=== PATIENT | male | born 1955 | race Caucasian/White ===

== ENCOUNTER 2022-12-25 17:44 | Inpatient (IN) ==
[2022-12-25] MEDS ORDERED: SODIUM CHLORIDE 0.9% 1,000 ML IV ONE ×4 (17:50→20:16)
[2022-12-25] MEDS ORDERED: THIAMINE HCL 200 MG in SODIUM CHLORIDE 0.9% 50 ML IV STA (17:50)
[2022-12-25] MEDS ORDERED: HYDROCORTISONE SOD SUCCINATE 100 MG/2 ML VIAL IV STA (17:56)
[2022-12-25] MEDS ORDERED: ONDANSETRON INJ 2 MG/ML 2 ML VIAL IV STA (17:57)
--- NOTE | 2022-12-25 18:03 | XRay Report ---
SINGLE VIEW CHEST CLINICAL HISTORY: Atypical chest pain. FINDINGS: An AP, portable, upright chest radiograph is compared to chest x-ray and chest CT dated 10/14. The examination is degraded by portable technique and patient rotation. The heart is mildly enlarged. The pulmonary vasculature is noncongested. The lungs and pleural spaces are clear. No pneum othorax is seen. The skeletal structures are osteopenic. The bony thorax is grossly intact. IMPRESSION: No active disease in the chest. ACT 112: Negative or not required by law. Electronically signed by: Jose Arreguin M.D. 12/25/2022 6:02 PM
[2022-12-25 18:12] LABS: iSTAT Creatinine 1.2 mg/dl (0.6-1.3); iSTAT Ionized Calcium 1.03 mmol/l (1.12-1.32); iSTAT Potassium 2.6 mmol/L (3.3-5.0)
[2022-12-25] MEDS ORDERED: OPTIRAY 320 500ml IV ONE (18:16)
[2022-12-25 18:25] LABS: Hematocrit (blood only) 47.2 % (42.0-52.0); Hemoglobin 16.6 g/dl (14.0-18.0); Mean Corpuscular Hemoglobin 32.1 pg (25.0-34.0); Mean Corpuscular Hgb Conc 35.2 g/dL (32.0-36.0); Mean Corpuscular Volume 91.3 fL (80.0-100.0); Mean Platelet Volume 9.5 fL (9.4-12.4); Platelet Count 275 K/uL (130-400); RDW Coefficient of Variation 12.4 % (11.5-14.5); RDW Standard Deviation 41.7 fL (36.4-46.3); Red Blood Count 5.17 M/uL (4.70-6.10); White Blood Count 5.11 K/ul (4.8-10.8)
[2022-12-25 18:29] LABS: Alanine Aminotransferase 7 U/L (7-52); Albumin Globulin Ratio 1.8 (0.9-2); Albumin Level 3.9 gm/dl (3.4-5.0); Alkaline Phosphatase 71 U/L (34-104); Anion Gap 12 (3-11); Aspartate Aminotransferase 17 U/L (13-39); BUN Creatinine Ratio 8.5 (10-20); Bilirubin,Total 0.5 mg/dl (0.2-1.0); Blood Urea Nitrogen 10 mg/dl (6-23); C Reactive Protein < 0.50 mg/dl (0-0.5); Calcium 8.3 mg/dl (8.6-10.3); Carbon Dioxide 20 mmol/L (21-32); Chloride 105 mmol/L (98-107); Est GFR (African American) 73.8 ml/min; Est GFR (Non-African American) 63.7 ml/min; Globulin 2.2 gm/dl (2.5-4.0); Glucose 190 mg/dl (70-99(Fasting)); Lipase 29 U/L (11-82); Potassium 2.7 mmol/L (3.5-5.1); Sodium 137 mmol/L (136-145); Total Protein 6.1 gm/dl (6.0-8.3)
[2022-12-25 18:35] LABS: Troponin I High Sensitivity 24.8 pg/ml (0-20)
--- NOTE | 2022-12-25 18:35 | CT Scan Report ---
CT SCAN OF THE BRAIN WITHOUT IV CONTRAST CLINICAL HISTORY: Syncope. Fall. COMPARISON STUDY: CT of the brain dated 11/02/2021. TECHNIQUE: Unenhanced axial CT scan of the brain is performed from the vertex to the skull base. A d ose lowering technique was utilized adhering to the principles of ALARA. CT DOSE: 5305.66 mGy.cm FINDINGS: Brain parenchyma: The brain parenchyma is normal in appearance. There is no hemorrhage, mass effect, or evidence of acute territorial ischemia by CT criteria. Mendoza-white matter differentiation is preser mauricio. No extra-axial fluid collection is seen. Ventricles, sulci, cisterns: Normal in configuration. Intracranial vasculature: There is atherosclerotic calcification of the cavernous carotid arteries. Calvarium: Unremarkable. Sinuses and mastoids: The visualized paranasal sinuses are clear. The mastoid air cells are well pneu matized. Orbits: The bony orbits are grossly intact. IMPRESSION: No acute intracranial abnormality. ACT 112: Negative or not required by law. Electronically signed by: Jose Arreguin M.D. 12/25/2022 6:33 PM
--- NOTE | 2022-12-25 18:36 | Emergency Department Note ---
Impression & Plan Sepsis, Chest pain, Atrial fibrillation with rapid ventricular response, Acute hypotension, Acute non-ST elevation myocardial infarction (NSTEMI) ED Provider Note NAME: SUJATHA HERNANDEZ AGE: 67 SEX: M : 1955 ARRIVES VIA: Ambulance INFORMANT: Patient, ED PROVIDER(S): Ned Fuentes DO CHIEF COMPLAINT: Chest pain HPI: The patient is a 67-year-old male who presented to the emergency department by ambulance for an evaluation of chest pain and generalized illness. The patient has been having problems over the course of the last few hours. He called 911. He had multiple syncopal episodes. He was complaining initially of chest pain and discomfort in his chest and abdomen. It is unclear if he struck his head. The patient denies having any lower extremity pain or swelling. The patient had a large bowel movement after he was brought from the ambulance. I did receive a prehospital notification about the patient. The patient had multiple EKGs that were abnormal. There was concern that this could be related to a cardiac issue. The patient does admit to alcohol intake today. He denies having any back pain. He did complain of some neck discomfort. ROS: See above HPI for pertinent positives & negatives. A total of 10 systems reviewed and were otherwise negative. PAST MEDICAL HISTORY: See Below PAST SURGICAL HISTORY: See Below FAMILY HISTORY: See Below SOCIAL HISTORY: See Below HOME MEDICATIONS: See Below ALLERGIES: See Below VITALS: See Below PHYSICAL EXAMINATION: GENERAL: The patient is awake to verbal commands. He appears somewhat anxious. He appears in extremis. EYES: The conjunctivae are clear. The pupils are round and reactive. EARS, NOSE, MOUTH AND THROAT: The nose is without any evidence of any deformity. Mucous membranes are dry. NECK: The neck is nontender and supple. RESPIRATORY: Normal respiratory effort is noted there is no evidence of wheezing rhonchi or rales CARDIOVASCULAR: Irregular heart sounds were noted to auscultation. There is no definite murmur. GASTROINTESTINAL: The abdomen was soft and nondistended. There is diffuse tenderness to palpation but no guarding or rigidity. MUSCULOSKELETAL/EXTREMITIES: There is no evidence of gross deformity full range of motion is noted in the hips and shoulders. SKIN: The skin is cool and diaphoretic. There was no significant pedal edema. Nailbeds were cyanotic. NEUROLOGIC: Patient is awake and oriented x3. Strength was diminished but symmetric. MEDICAL DECISION MAKING: The patient is a 67-year-old male who presented to the emergency department for an evaluation of chest pain. The patient presentation was very worrisome as he was having acute onset of chest pain but also multiple episodes of syncope. The patient was initially in sinus rhythm. His prehospital EKGs were reviewed. He also had episodes of atrial fibrillation which would be a new diagnosis for the patient. The patient was treated with multiple IV fluid boluses. His condition slowly improved from a mental status standpoint but he continued to have hypotension and his atrial fibrillation continue to increase with this rate. The patient did have an elevation in his troponin. I discussed the patient's laboratory and radiographic studies with him and his significant other. He was further treated with IV antibiotics. Radiographic studies were obtained and there is no definite signs of aortic pathology or infectious cause for the patient's presentation that would complete Rosi's presentation. The patient required a central line placement for IV pressors. I discussed the patient's condition with the [facility] hospitalist group as well as the ICU. They have agreed to evaluate patient in the emergency department for further management and disposition. Triage Nursing notes reviewed. Prior medical records reviewed Vital Signs: reviewed and remarkable for Hypotension and tachycardia Differential diagnosis: Cardiac ischemia, aortic dissection, pulmonary embolism, pneumothorax, pneumonia, pericarditis, myocarditis, esophageal rupture, GERD, cholecystitis, pancreatitis, musculoskeletal, as well as other pathologies. ER treatment provided: See below Diagnostics interpreted by me: ECG: EKG was obtained in the emergency department. My interpretation is atrial fibrillation at 134 bpm. Poor R wave progression with diffuse ST depressions were noted. This was compared with the tracing from November 02, 2021. Sinus rhythm has been replaced with atrial fibrillation. Prehospital notification EKG was obtained. My interpretation on the initial EKG is sinus tachycardia at 103 bpm. Poor R wave progression with lateral and inferior ST depressions are noted. This compares similar to the EKG obtained in the emergency department however atrial fibrillation has replaced sinus rhythm. Cardiac Monitoring: An order was placed for continuous cardiac monitoring. The monitor shows a rate of 160 bpm with atrial fibrillation RVR Laboratory studies: As stated above and show below. Imaging studies: See below. Radiographic imaging was reviewed by myself Consultation(s): I discussed this case with Dr Maher who was on for the [facility] hospitalist group. I discussed this case with Royer who was extrusion bender for the ICU ED COURSE: Procedures: Femoral Central Venous Catheter Indication: hypotension Catheter Type: triple lumen Location: right femoral vein Verbal consent was obtained after the risks and benefits were explained, including but not limited to intra-abdominal injury, vessel injury, bleeding, scarring, infection, pain, and bone/joint/nerve damage. At this time, the risks of the procedure are less than the risks of NOT performing the procedure. A time out was taken and the correct patient and site identified. The patient was placed in the supine position and the skin was prepped in the standard fashion with chlorhexidine and full sterile drapes applied. The proper landmarks were identified with ultrasound, anesthetized with 1% lidocaine without epinephrine, and the needle was inserted through the skin in the standard fashion. The needle was carefully advanced into blood vessel lumen with ultrasound guidance. The guidewire was placed uneventfully. The vessel is dilated and the catheter was placed. It was sutured into position. There was good blood return from all ports. The patient tolerated the procedure well and there were no complications. Critical Care: I have personally spent greater than 55 minutes of critical care time in the direct management of this patient. This includes bedside care, interpretation of diagnostic studies, and testing, discussion with consultants, patient, and family members, and other required patient management activities. This 55 minutes is in excess of all separately billable procedures. Past Med/Surg History Medical History Alcohol intoxication BPH with obstruction/lower urinary tract symptoms Chronic shoulder pain GERD (gastroesophageal reflux disease) HLD (hyperlipidemia) No significant past medical history Surgical History H/O hernia repair Family History Brother Heart disease Mother Breast cancer Leukemia Social History Smoking Status: Former smoker Tobacco Type: Smokeless Tobacco (Dip or Chew) Second Hand Exposure: No; Do You Dip or Chew Tobacco: No; Tobacco Cessation Education Requested by Patient: No Hx Alcohol Use: Yes Alcohol type: beer Hx Substance Use: No Preferred Language: Spanish Communication Ability: Effective Dairy Management Specialist Required: No Beliefs That Will Affect Care: None marital status: Current Living Situation: Spouse Other Information That Helps Us Care for You: No Feels Safe at Home: Yes Safety Concerns: Feels Safe At This Time Assistive Devices: Glasses Allergies Allergies Allergy/AdvReac Type Severity Reaction Status Date / Time No Known Allergies Allergy Verified 08/22/19 14:45 Home Meds Home Medications Medication Instructions Recorded Confirmed atorvastatin 20 mg tablet (Lipitor) 20 mg PO DAILY 08/22/19 08/22/19 pantoprazole 40 mg tablet,delayed 40 mg PO DAILY 08/22/19 08/22/19 release (Protonix) sucralfate 1 gram tablet (Carafate) 1 gm PO BID 08/22/19 08/22/19 Results & Data (ED) Vital Signs Vital Signs - 24 hr 12/25/22 17:52 12/25/22 18:36 12/25/22 18:36 Temperature Temperature Source Pulse Rate 125 H 142 H Pulse Rate from SpO2 Sensor Respiratory Rate 22 Respiratory Effort / Characteristics Non-Labored Respiratory Depth Normal Blood Pressure 82/54 L Blood Pressure Mean 63 Pulse Oximetry 93 93 Oxygen Delivery Method Room Air Room Air Sepsis Recent Fever Within 48 Hours No Sepsis New/Unexplained Change in Mental Status Yes Sepsis Action Taken by Nursing Physician Notified Pulse Oximetry Post Tiitration 12/25/22 18:36 12/25/22 17:51 12/25/22 17:55 Temperature Temperature Source Pulse Rate 126 H Pulse Rate from SpO2 Sensor 98 H Respiratory Rate 17 Respiratory Effort / Characteristics Respiratory Depth Blood Pressure 54/34 L Blood Pressure Mean 35 Pulse Oximetry 96 Oxygen Delivery Method Room Air Sepsis Recent Fever Within 48 Hours Sepsis New/Unexplained Change in Mental Status Sepsis Action Taken by Nursing Pulse Oximetry Post Tiitration 93 12/25/22 17:55 12/25/22 18:24 12/25/22 18:25 Temperature Temperature Source Pulse Rate 126 H 140 H 126 H Pulse Rate from SpO2 Sensor 108 H 131 H Respiratory Rate 21 23 22 Respiratory Effort / Characteristics Respiratory Depth Blood Pressure Blood Pressure Mean Pulse Oximetry 96 95 Oxygen Delivery Method Sepsis Recent Fever Within 48 Hours Sepsis New/Unexplained Change in Mental Status Sepsis Action Taken by Nursing Pulse Oximetry Post Tiitration 12/25/22 18:27 12/25/22 18:27 12/25/22 18:30 Temperature Temperature Source Pulse Rate 139 H 152 H Pulse Rate from SpO2 Sensor Respiratory Rate 20 27 H Respiratory Effort / Characteristics Respiratory Depth Blood Pressure 90/48 L Blood Pressure Mean 53 Pulse Oximetry Oxygen Delivery Method Sepsis Recent Fever Within 48 Hours Sepsis New/Unexplained Change in Mental Status Sepsis Action Taken by Nursing Pulse Oximetry Post Tiitration 12/25/22 18:35 12/25/22 18:35 12/25/22 18:36 Temperature Temperature Source Pulse Rate 162 H Pulse Rate from SpO2 Sensor Respiratory Rate 24 Respiratory Effort / Characteristics Respiratory Depth Blood Pressure 65/43 L 82/54 L Blood Pressure Mean 51 63 Pulse Oximetry Oxygen Delivery Method Sepsis Recent Fever Within 48 Hours Sepsis New/Unexplained Change in Mental Status Sepsis Action Taken by Nursing Pulse Oximetry Post Tiitration 12/25/22 18:36 12/25/22 18:40 12/25/22 18:42 Temperature Temperature Source Pulse Rate 161 H 137 H Pulse Rate from SpO2 Sensor Respiratory Rate 22 21 Respiratory Effort / Characteristics Respiratory Depth Blood Pressure Blood Pressure Mean 69 Pulse Oximetry Oxygen Delivery Method Sepsis Recent Fever Within 48 Hours Sepsis New/Unexplained Change in Mental Status Sepsis Action Taken by Nursing Pulse Oximetry Post Tiitration 12/25/22 18:42 12/25/22 18:45 12/25/22 18:45 Temperature Temperature Source Pulse Rate 133 H 149 H Pulse Rate from SpO2 Sensor Respiratory Rate 24 24 Respiratory Effort / Characteristics Respiratory Depth Blood Pressure 78/49 L Blood Pressure Mean 61 Pulse Oximetry Oxygen Delivery Method Sepsis Recent Fever Within 48 Hours Sepsis New/Unexplained Change in Mental Status Sepsis Action Taken by Nursing Pulse Oximetry Post Tiitration 12/25/22 18:51 12/25/22 18:54 12/25/22 18:56 Temperature Temperature Source Pulse Rate 137 H 144 H 150 H Pulse Rate from SpO2 Sensor Respiratory Rate 19 19 22 Respiratory Effort / Characteristics Respiratory Depth Blood Pressure 68/42 L 76/57 L 85/37 L Blood Pressure Mean 50 63 53 Pulse Oximetry 96 Oxygen Delivery Method Room Air Sepsis Recent Fever Within 48 Hours Sepsis New/Unexplained Change in Mental Status Sepsis Action Taken by Nursing Pulse Oximetry Post Tiitration 12/25/22 19:00 12/25/22 19:26 12/25/22 19:05 Temperature 36.4 C L Temperature Source Oral Pulse Rate 151 H 147 H Pulse Rate from SpO2 Sensor Respiratory Rate 22 20 Respiratory Effort / Characteristics Respiratory Depth Blood Pressure 64/51 L 73/39 L Blood Pressure Mean 55 50 Pulse Oximetry 93 Oxygen Delivery Method Room Air Sepsis Recent Fever Within 48 Hours Sepsis New/Unexplained Change in Mental Status Sepsis Action Taken by Nursing Pulse Oximetry Post Tiitration 12/25/22 19:10 12/25/22 19:17 12/25/22 19:21 Temperature Temperature Source Pulse Rate 149 H 163 H 166 H Pulse Rate from SpO2 Sensor Respiratory Rate 18 22 19 Respiratory Effort / Characteristics Respiratory Depth Blood Pressure 71/41 L 72/38 L 71/44 L Blood Pressure Mean 51 49 53 Pulse Oximetry 91 94 93 Oxygen Delivery Method Room Air Room Air Room Air Sepsis Recent Fever Within 48 Hours Sepsis New/Unexplained Change in Mental Status Sepsis Action Taken by Nursing Pulse Oximetry Post Tiitration 12/25/22 19:26 12/25/22 19:30 12/25/22 20:37 Temperature Temperature Source Pulse Rate 156 H 160 H 178 H Pulse Rate from SpO2 Sensor 154 H 148 H Respiratory Rate 19 22 Respiratory Effort / Characteristics Respiratory Depth Blood Pressure 71/47 L 61/52 L Blood Pressure Mean 55 55 Pulse Oximetry 100 100 Oxygen Delivery Method Room Air Room Air Sepsis Recent Fever Within 48 Hours Sepsis New/Unexplained Change in Mental Status Sepsis Action Taken by Nursing Pulse Oximetry Post Tiitration 12/25/22 20:41 12/25/22 21:00 12/25/22 21:05 Temperature Temperature Source Pulse Rate 175 H 163 H 117 H Pulse Rate from SpO2 Sensor 163 H 117 H Respiratory Rate 20 18 Respiratory Effort / Characteristics Respiratory Depth Blood Pressure 85/66 L 108/67 Blood Pressure Mean 72 80 Pulse Oximetry 97 98 Oxygen Delivery Method Room Air Room Air Sepsis Recent Fever Within 48 Hours Sepsis New/Unexplained Change in Mental Status Sepsis Action Taken by Nursing Pulse Oximetry Post Tiitration 12/25/22 21:10 12/25/22 21:20 Temperature Temperature Source Pulse Rate 122 H 118 H Pulse Rate from SpO2 Sensor 113 H 114 H Respiratory Rate 17 18 Respiratory Effort / Characteristics Respiratory Depth Blood Pressure 83/67 L 120/73 Blood Pressure Mean 72 88 Pulse Oximetry 97 97 Oxygen Delivery Method Room Air Room Air Sepsis Recent Fever Within 48 Hours Sepsis New/Unexplained Change in Mental Status Sepsis Action Taken by Nursing Pulse Oximetry Post Tiitration Home Medications Current Medication List: was personally reviewed by me Laboratory Data Attestation: I reviewed the patient's lab results. 12/25/22 17:53 12/25/22 17:53 Lab Results 12/25/22 12/25/2223 Range/Units 17:53 17:53 17:53 WBC 5.11 (4.8-10.8) K/ul RBC 5.17 (4.70-6.10) M/uL Hgb 16.6 (14.0-18.0) g/dl POC Hgb (14.0-18.0) g/dl Hct 47.2 (42.0-52.0) % POC Hct (42-52) % MCV 91.3 (80.0-100.0) fL MCH 32.1 (25.0-34.0) pg MCHC 35.2 (32.0-36.0) g/dL RDW Std Deviation 41.7 (36.4-46.3) fL RDW Coeff of Santiago 12.4 (11.5-14.5) % Plt Count 275 (130-400) K/uL MPV 9.5 (9.4-12.4) fL Immature Gran % (Auto) 0.6 % Neut % (Auto) 65.3 % Lymph % (Auto) 32.5 % Kleberg % (Auto) 0.4 % Eos % (Auto) 1.0 % Baso % (Auto) 0.2 % Neut # (Auto) 3.34 (1.40-6.50) K/uL Lymph # (Auto) 1.66 (1.20-3.40) K/uL Kleberg # (Auto) 0.02 L (0.11-0.59) K/uL Eos # (Auto) 0.05 (0.00-0.50) K/uL Baso # (Auto) 0.01 (0.00-0.20) K/uL Immature Gran # (Auto) 0.03 (0.01-0.20) K/uL PT 10.9 (9.0-12.0) Seconds INR 1.0 (0.9-1.1) APTT 21.4 (21.0-31.0) Seconds PTT Ratio 0.8 D-Dimer 66450 H* (0-500) ug/L FEU ABG pH (7.35-7.45) ABG pCO2 (35-46) mmHg ABG pO2 (80-95) mmHg ABG HCO3 (19-24) mmol/L ABG O2 Saturation (90-95) % ABG Base Excess (-9-1.8) mEq/L Fuad Test (Pos) Oxygen Given POC Sodium (135-144) mmol/L Sodium 137 (136-145) mmol/L POC Potassium (3.3-5.0) mmol/L Potassium 2.7 L (3.5-5.1) mmol/L POC Chloride (101-112) mmol/L Chloride 105 (98-107) mmol/L Carbon Dioxide 20 L (21-32) mmol/L POC Total CO2 (24-31) mmol/L Anion Gap 12 H (3-11) POC Anion Gap (16-25) mmol/L POC BUN (7-18) mg/dl BUN 10 (6-23) mg/dl Creatinine 1.17 (0.6-1.4) mg/dl POC Creatinine (0.6-1.3) mg/dl Est Cr Clr Drug Dosing Not Reportable Est GFR ( Amer) 73.8 ml/min Est GFR (Non-Af Amer) 63.7 ml/min BUN/Creatinine Ratio 8.5 L (10-20) Glucose 190 H (70-99(Fasting)) mg/dl POC Glucose (other) (70-99) mg/dl Calcium 8.3 L (8.6-10.3) mg/dl POC Ioniz Calcium [place] (1.12-1.32) mmol/l Magnesium 2.0 (1.7-2.4) mg/dl Total Bilirubin 0.5 (0.2-1.0) mg/dl AST 17 (13-39) U/L ALT 7 (7-52) U/L Alkaline Phosphatase 71 (34-104) U/L Troponin I High Sens 24.8 H (0-20) pg/ml C-Reactive Protein < 0.50 (0-0.5) mg/dl Total Protein 6.1 (6.0-8.3) gm/dl Albumin 3.9 (3.4-5.0) gm/dl Globulin 2.2 L (2.5-4.0) gm/dl Albumin/Globulin Ratio 1.8 (0.9-2) Lipase 29 (11-82) U/L Procalcitonin (0-0.5) ng/ml Random Cortisol mcg/dl Ethyl Alcohol mg/dL (<10.0) mg/dl Blood Type Antibody Screen 12/25/22 12/25/22 12/25/22 Range/Units 17:53 17:53 17:53 WBC (4.8-10.8) K/ul RBC (4.70-6.10) M/uL Hgb (14.0-18.0) g/dl POC Hgb (14.0-18.0) g/dl Hct (42.0-52.0) % POC Hct (42-52) % MCV (80.0-100.0) fL MCH (25.0-34.0) pg MCHC (32.0-36.0) g/dL RDW Std Deviation (36.4-46.3) fL RDW Coeff of Santiago (11.5-14.5) % Plt Count (130-400) K/uL MPV (9.4-12.4) fL Immature Gran % (Auto) % Neut % (Auto) % Lymph % (Auto) % Kleberg % (Auto) % Eos % (Auto) % Baso % (Auto) % Neut # (Auto) (1.40-6.50) K/uL Lymph # (Auto) (1.20-3.40) K/uL Kleberg # (Auto) (0.11-0.59) K/uL Eos # (Auto) (0.00-0.50) K/uL Baso # (Auto) (0.00-0.20) K/uL Immature Gran # (Auto) (0.01-0.20) K/uL PT (9.0-12.0) Seconds INR (0.9-1.1) APTT (21.0-31.0) Seconds PTT Ratio D-Dimer (0-500) ug/L FEU ABG pH (7.35-7.45) ABG pCO2 (35-46) mmHg ABG pO2 (80-95) mmHg ABG HCO3 (19-24) mmol/L ABG O2 Saturation (90-95) % ABG Base Excess (-9-1.8) mEq/L Fuad Test (Pos) Oxygen Given POC Sodium (135-144) mmol/L Sodium (136-145) mmol/L POC Potassium (3.3-5.0) mmol/L Potassium (3.5-5.1) mmol/L POC Chloride (101-112) mmol/L Chloride (98-107) mmol/L Carbon Dioxide (21-32) mmol/L POC Total CO2 (24-31) mmol/L Anion Gap (3-11) POC Anion Gap (16-25) mmol/L POC BUN (7-18) mg/dl BUN (6-23) mg/dl Creatinine (0.6-1.4) mg/dl POC Creatinine (0.6-1.3) mg/dl Est Cr Clr Drug Dosing Est GFR ( Amer) ml/min Est GFR (Non-Af Amer) ml/min BUN/Creatinine Ratio (10-20) Glucose (70-99(Fasting)) mg/dl POC Glucose (other) (70-99) mg/dl Calcium (8.6-10.3) mg/dl POC Ioniz Calcium [place] (1.12-1.32) mmol/l Magnesium (1.7-2.4) mg/dl Total Bilirubin (0.2-1.0) mg/dl AST (13-39) U/L ALT (7-52) U/L Alkaline Phosphatase (34-104) U/L Troponin I High Sens (0-20) pg/ml C-Reactive Protein (0-0.5) mg/dl Total Protein (6.0-8.3) gm/dl Albumin (3.4-5.0) gm/dl Globulin (2.5-4.0) gm/dl Albumin/Globulin Ratio (0.9-2) Lipase (11-82) U/L Procalcitonin (0-0.5) ng/ml Random Cortisol 24.25 mcg/dl Ethyl Alcohol mg/dL 104.9 H (<10.0) mg/dl Blood Type O Positive Antibody Screen NEGATIVE 12/25/22 12/25/22 12/25/22 Range/Units 17:53 17:59 18:51 WBC (4.8-10.8) K/ul RBC (4.70-6.10) M/uL Hgb (14.0-18.0) g/dl POC Hgb 17.0 (14.0-18.0) g/dl Hct (42.0-52.0) % POC Hct 50 (42-52) % MCV (80.0-100.0) fL MCH (25.0-34.0) pg MCHC (32.0-36.0) g/dL RDW Std Deviation (36.4-46.3) fL RDW Coeff of Santiago (11.5-14.5) % Plt Count (130-400) K/uL MPV (9.4-12.4) fL Immature Gran % (Auto) % Neut % (Auto) % Lymph % (Auto) % Kleberg % (Auto) % Eos % (Auto) % Baso % (Auto) % Neut # (Auto) (1.40-6.50) K/uL Lymph # (Auto) (1.20-3.40) K/uL Kleberg # (Auto) (0.11-0.59) K/uL Eos # (Auto) (0.00-0.50) K/uL Baso # (Auto) (0.00-0.20) K/uL Immature Gran # (Auto) (0.01-0.20) K/uL PT (9.0-12.0) Seconds INR (0.9-1.1) APTT (21.0-31.0) Seconds PTT Ratio D-Dimer (0-500) ug/L FEU ABG pH 7.15 L* (7.35-7.45) ABG pCO2 31 L (35-46) mmHg ABG pO2 109 H (80-95) mmHg ABG HCO3 11 L (19-24) mmol/L ABG O2 Saturation 98.3 H (90-95) % ABG Base Excess -16.8 L (-9-1.8) mEq/L Fuad Test Pos (Pos) Oxygen Given ROOM AIR POC Sodium 139 (135-144) mmol/L Sodium (136-145) mmol/L POC Potassium 2.6 L (3.3-5.0) mmol/L Potassium (3.5-5.1) mmol/L POC Chloride 102 (101-112) mmol/L Chloride (98-107) mmol/L Carbon Dioxide (21-32) mmol/L POC Total CO2 20 L (24-31) mmol/L Anion Gap (3-11) POC Anion Gap 21.0 (16-25) mmol/L POC BUN 10 (7-18) mg/dl BUN (6-23) mg/dl Creatinine (0.6-1.4) mg/dl POC Creatinine 1.2 (0.6-1.3) mg/dl Est Cr Clr Drug Dosing Est GFR ( Amer) ml/min Est GFR (Non-Af Amer) ml/min BUN/Creatinine Ratio (10-20) Glucose (70-99(Fasting)) mg/dl POC Glucose (other) 184 H (70-99) mg/dl Calcium (8.6-10.3) mg/dl POC Ioniz Calcium [place] 1.03 L (1.12-1.32) mmol/l Magnesium (1.7-2.4) mg/dl Total Bilirubin (0.2-1.0) mg/dl AST (13-39) U/L ALT (7-52) U/L Alkaline Phosphatase (34-104) U/L Troponin I High Sens (0-20) pg/ml C-Reactive Protein (0-0.5) mg/dl Total Protein (6.0-8.3) gm/dl Albumin (3.4-5.0) gm/dl Globulin (2.5-4.0) gm/dl Albumin/Globulin Ratio (0.9-2) Lipase (11-82) U/L Procalcitonin < 0.05 (0-0.5) ng/ml Random Cortisol mcg/dl Ethyl Alcohol mg/dL (<10.0) mg/dl Blood Type Antibody Screen 12/25/22 Range/Units 20:06 WBC (4.8-10.8) K/ul RBC (4.70-6.10) M/uL Hgb (14.0-18.0) g/dl POC Hgb (14.0-18.0) g/dl Hct (42.0-52.0) % POC Hct (42-52) % MCV (80.0-100.0) fL MCH (25.0-34.0) pg MCHC (32.0-36.0) g/dL RDW Std Deviation (36.4-46.3) fL RDW Coeff of Santiago (11.5-14.5) % Plt Count (130-400) K/uL MPV (9.4-12.4) fL Immature Gran % (Auto) % Neut % (Auto) % Lymph % (Auto) % Kleberg % (Auto) % Eos % (Auto) % Baso % (Auto) % Neut # (Auto) (1.40-6.50) K/uL Lymph # (Auto) (1.20-3.40) K/uL Kleberg # (Auto) (0.11-0.59) K/uL Eos # (Auto) (0.00-0.50) K/uL Baso # (Auto) (0.00-0.20) K/uL Immature Gran # (Auto) (0.01-0.20) K/uL PT (9.0-12.0) Seconds INR (0.9-1.1) APTT (21.0-31.0) Seconds PTT Ratio D-Dimer (0-500) ug/L FEU ABG pH (7.35-7.45) ABG pCO2 (35-46) mmHg ABG pO2 (80-95) mmHg ABG HCO3 (19-24) mmol/L ABG O2 Saturation (90-95) % ABG Base Excess (-9-1.8) mEq/L Fuad Test (Pos) Oxygen Given POC Sodium (135-144) mmol/L Sodium (136-145) mmol/L POC Potassium (3.3-5.0) mmol/L Potassium (3.5-5.1) mmol/L POC Chloride (101-112) mmol/L Chloride (98-107) mmol/L Carbon Dioxide (21-32) mmol/L POC Total CO2 (24-31) mmol/L Anion Gap (3-11) POC Anion Gap (16-25) mmol/L POC BUN (7-18) mg/dl BUN (6-23) mg/dl Creatinine (0.6-1.4) mg/dl POC Creatinine (0.6-1.3) mg/dl Est Cr Clr Drug Dosing Est GFR ( Amer) ml/min Est GFR (Non-Af Amer) ml/min BUN/Creatinine Ratio (10-20) Glucose (70-99(Fasting)) mg/dl POC Glucose (other) (70-99) mg/dl Calcium (8.6-10.3) mg/dl POC Ioniz Calcium [place] (1.12-1.32) mmol/l Magnesium (1.7-2.4) mg/dl Total Bilirubin (0.2-1.0) mg/dl AST (13-39) U/L ALT (7-52) U/L Alkaline Phosphatase (34-104) U/L Troponin I High Sens 161.1 H* D (0-20) pg/ml C-Reactive Protein (0-0.5) mg/dl Total Protein (6.0-8.3) gm/dl Albumin (3.4-5.0) gm/dl Globulin (2.5-4.0) gm/dl Albumin/Globulin Ratio (0.9-2) Lipase (11-82) U/L Procalcitonin (0-0.5) ng/ml Random Cortisol mcg/dl Ethyl Alcohol mg/dL (<10.0) mg/dl Blood Type Antibody Screen Administered Medications Acetaminophen (Acetaminophen 325 Mg Tab) 650 mg PO Q6H PRN PRN Reason: Pain or Fever Stop: 01/25/23 09:48 Last Admin: 12/26/22 10:13 Dose: 650 mg Documented By: MATTY Norepinephrine Bitartrate (Levophed/D5w) 4 mg in 250 mls @ 14.19 mls/hr IV [id number]; Protocol Stop: 01/24/23 19:59 Last Titration: 12/26/22 09:03 Dose: 0.04 mcg/kg/min, 14.2 mls/hr Documented By: Titration: 12/26/22 06:55 Dose: 0.02 mcg/kg/min, 7.1 mls/hr Documented By: Titration: 12/26/22 03:13 Dose: 0.03 mcg/kg/min, 10.6 mls/hr Documented By: Titration: 12/26/22 00:18 Dose: 0.02 mcg/kg/min, 7.1 mls/hr Documented By: Titration: 12/25/22 23:56 Dose: 0 mcg/kg/min, 0 mls/hr Documented By: Titration: 12/25/22 23:37 Dose: 0.05 mcg/kg/min, 17.7 mls/hr Documented By: Titration: 12/25/22 22:00 Dose: 0.07 mcg/kg/min, 24.8 mls/hr Documented By: Titration: 12/25/22 20:30 Dose: 0.09 mcg/kg/min, 31.9 mls/hr Documented By: Titration: 12/25/22 20:13 Dose: 0.07 mcg/kg/min, 24.8 mls/hr Documented By: Admin: 12/25/22 19:54 Dose: 0.05 mcg/kg/min, 17.7 mls/hr Documented By: ED Co-signed By: MARINA Amiodarone HCl/Dextrose (Nexterone / D5w) 360 mg in 200 mls @ 16.667 mls/hr IV .Q12H ASIA Stop: 01/24/23 20:44 Last Admin: 12/26/22 10:04 Dose: Not Given Documented By: Admin: 12/26/22 02:54 Dose: 0.5 mg/min, 16.7 mls/hr Documented By: TMG Co-signed By: BRAYAN Heparin Sodium/Dextrose (Heparin Sodium/Dextrose) 25,000 units in 500 mls @ 0 mls/hr IV .Q0M ASIA; Protocol Stop: 01/24/23 23:07 Last Titration: 12/26/22 08:50 Dose: 0 units/hr, 0 mls/hr Documented By: MATTY Co-signed By: IRA Admin: 12/25/22 23:43 Dose: 1,450 units/hr, 29 mls/hr Documented By: TMG Co-signed By: ENRIQUETA Thiamine HCl 100 mg/ Syringe 10 mls @ 2 mls/min IV QAM ASIA Stop: 01/25/23 08:59 Last Admin: 12/26/22 09:03 Dose: 2 mls/min Documented By: MATTY Folic Acid 1 mg/ Syringe 10 mls @ 5 mls/min IV QAM ASIA Stop: 01/25/23 08:59 Last Admin: 12/26/22 09:03 Dose: 5 mls/min Documented By: MATTY Parenteral Electrolytes (Plasma-Lyte A Ph 7.4) 1,000 mls @ 125 mls/hr IV .Q8H ASIA Stop: 01/24/23 23:44 Last Admin: 12/26/22 09:03 Dose: 125 mls/hr Documented By: Infusion: 12/26/22 07:56 Dose: 125 mls/hr Documented By: Admin: 12/25/22 23:56 Dose: 125 mls/hr Documented By: LETI Miscellaneous (Icu Protocol For Hyperglycemia) 1 each N/A ACHS ASIA Stop: 12/28/22 07:29 Last Admin: 12/26/22 09:03 Dose: Not Given Documented By: MATTY Discontinued Medications Diphenhydramine HCl (Diphenhydramine 50 Mg/Ml Vial) 25 mg IV NOW STA Stop: 12/25/22 20:13 Last Admin: 12/25/22 20:22 Dose: 25 mg Documented By: ED Heparin Sodium (Porcine) (Heparin Sod (Porcine) 1000 Unit/Ml) 6,000 units IV NOW ONE Stop: 12/25/22 23:46 Last Admin: 12/25/22 23:46 Dose: 6,000 units Documented By: LETI Co-signed By: ENRIQUETA Heparin Sodium/Dextrose (Heparin Iv Adult Wt-Based Standard With Bolus Protocol) 1 each IV NOW STA; Protocol Stop: 12/25/22 23:09 Last Admin: 12/25/22 23:47 Dose: 1 each Documented By: LETI Hydrocortisone Sodium Succinate (Hydrocortisone Sod Succinate 100 Mg/2 Ml Vial) 100 mg IV NOW STA Stop: 12/25/22 17:57 Last Admin: 12/25/22 18:55 Dose: 100 mg Documented By: ED Sodium Chloride (Nss) 1,000 mls @ 999 mls/hr IV .Q1H1M ONE Stop: 12/25/22 18:50 Last Infusion: 12/25/22 19:29 Dose: 0 mls/hr Documented By: Admin: 12/25/22 18:43 Dose: 999 mls/hr Documented By: MES Thiamine HCl 200 mg/ Sodium (Chloride) 52 mls @ 210 mls/hr IV NOW STA Stop: 12/25/22 18:04 Last Infusion: 12/25/22 19:20 Dose: 0 mls/hr Documented By: Admin: 12/25/22 18:55 Dose: 210 mls/hr Documented By: ED Sodium Chloride (Nss) 1,000 mls @ 999 mls/hr IV .Q1H1M ONE Stop: 12/25/22 18:57 Last Infusion: 12/25/22 19:29 Dose: 0 mls/hr Documented By: Admin: 12/25/22 18:43 Dose: 999 mls/hr Documented By: CORNELL Potassium Chloride (K Dany / Wtr) 10 meq in 100 mls @ 100 mls/hr IV Q1H ASIA Stop: 12/25/22 20:14 Last Infusion: 12/25/22 21:21 Dose: 0 mls/hr Documented By: Admin: 12/25/22 19:55 Dose: 100 mls/hr Documented By: Infusion: 12/25/22 19:54 Dose: 0 mls/hr Documented By: Admin: 12/25/22 18:58 Dose: 100 mls/hr Documented By: ED Sodium Chloride (Nss) 1,000 mls @ 999 mls/hr IV .Q1H1M ONE Stop: 12/25/22 20:21 Last Infusion: 12/25/22 20:21 Dose: 0 mls/hr Documented By: Admin: 12/25/22 19:29 Dose: 999 mls/hr Documented By: ED Piperacillin Sod/Tazobactam Sod (Zosyn) 4.5 gm in 100 mls @ 200 mls/hr IV NOW ONE Stop: 12/25/22 19:50 Last Infusion: 12/25/22 19:56 Dose: 0 mls/hr Documented By: Admin: 12/25/22 19:29 Dose: 200 mls/hr Documented By: ED Sodium Chloride (Nss) 1,000 mls @ 999 mls/hr IV .Q1H1M ONE Stop: 12/25/22 21:16 Last Infusion: 12/25/22 20:18 Dose: 0 mls/hr Documented By: Admin: 12/25/22 19:00 Dose: 999 mls/hr Documented By: ED Magnesium Sulfate/Dextrose (Magnesium Sulfate / D5w) 1 gm in 100 mls @ 200 mls/hr IV Q30M ASIA Stop: 12/25/22 21:30 Last Infusion: 12/25/22 21:58 Dose: 0 mls/hr Documented By: Admin: 12/25/22 21:18 Dose: 200 mls/hr Documented By: Infusion: 12/25/22 21:10 Dose: 0 mls/hr Documented By: Admin: 12/25/22 20:36 Dose: 200 mls/hr Documented By: ED Amiodarone HCl/Dextrose (Nexterone / D5w) 150 mg in 100 mls @ 600 mls/hr IV NOW STA Stop: 12/25/22 20:46 Last Infusion: 12/25/22 21:10 Dose: 0 mls/hr Documented By: RIN Co-signed By: KAHLIL Admin: 12/25/22 20:44 Dose: 600 mls/hr Documented By: ED Co-signed By: ALCON Amiodarone HCl/Dextrose (Nexterone / D5w) 360 mg in 200 mls @ 33.333 mls/hr IV ONE ONE; Protocol Stop: 12/26/22 02:36 Last Infusion: 12/26/22 05:58 Dose: 0 mg/min, 0 mls/hr Documented By: LETI Co-signed By: ENRIQUETA Admin: 12/25/22 20:57 Dose: 1 mg/min, 33.3 mls/hr Documented By: RIN Co-signed By: ED Multivitamins 10 ml/ Thiamine HCl 100 mg/ Folic Acid 1 mg/Sodium Chloride 1, 011.2 mls @ 500 mls/hr IV .Q2H2M ONE Stop: 12/26/22 01:31 Last Infusion: 12/26/22 01:59 Dose: 0 mls/hr Documented By: Admin: 12/25/22 23:46 Dose: 500 mls/hr Documented By: LETI Potassium Chloride (K Dany / Wtr) 10 meq in 100 mls @ 100 mls/hr IV Q1H ASIA Stop: 12/26/22 01:07 Last Admin: 12/26/22 00:04 Dose: Not Given Documented By: LETI Calcium Gluconate 1,000 mg/ (Sodium Chloride) 60 mls @ 240 mls/hr IV Q15M ASIA Stop: 12/26/22 00:29 Last Infusion: 12/26/22 00:49 Dose: 0 mls/hr Documented By: Admin: 12/26/22 00:25 Dose: 240 mls/hr Documented By: Infusion: 12/26/22 00:25 Dose: 240 mls/hr Documented By: Admin: 12/26/22 00:15 Dose: 240 mls/hr Documented By: LETI Ioversol (Optiray 320 500ml) 117 ml IV ONCE ONE Stop: 12/25/22 18:17 Last Admin: 12/25/22 18:17 Dose: 117 ml Documented By: GAEL Miscellaneous (Stat Iv Infusion Titration Per Protocol) 1 each N/A NOW STA Stop: 12/25/22 19:51 Last Admin: 12/25/22 21:17 Dose: 1 each Documented By: RIN Ondansetron HCl (Ondansetron Inj 2 Mg/Ml 2 Ml Vial) 4 mg IV NOW STA Stop: 12/25/22 17:58 Last Admin: 12/25/22 18:43 Dose: 4 mg Documented By: CORNELL Potassium Chloride (Potassium Chloride Crtab 20 Meq Tabcr) 40 meq PO NOW STA Stop: 12/25/22 23:09 Last Admin: 12/25/22 23:56 Dose: 40 meq Documented By: LETI Imaging Data Attestation: I personally reviewed and interpreted this imaging study as follows: My Impression: 1 view chest x-ray was obtained in the emergency department. My interpretation is no free air or definite will tray, final report below. CT brain was obtained in the emergency department. Interpretation is no intracranial hemorrhage or mass effect, final report below. CT abdomen and pelvis was obtained in the emergency [place]. There is no definite bowel obstruction or free air, final report below. CT the chest was obtained in the emergency department. My interpretation is no definite for trait, final report below. Radiologist's Impression: Chest X-Ray 12/25/22 17:39 SINGLE VIEW CHEST CLINICAL HISTORY: Atypical chest pain. FINDINGS: An AP, portable, upright chest radiograph is compared to chest x-ray and chest CT dated 11/02/2021. The examination is degraded by portable technique and patient rotation. The heart is mildly enlarged. The pulmonary vasculature is noncongested. The lungs and pleural spaces are clear. No pneumothorax is seen. The skeletal structures are osteopenic. The bony thorax is grossly intact. IMPRESSION: No active disease in the chest. ACT 112: Negative or not required by law. Electronically signed by: Jose Arreguin M.D. 12/25/2022 6:02 PM Abdomen/Pelvis CT 12/25/22 17:50 CT SCAN OF THE ABDOMEN AND PELVIS WITH IV CONTRAST CLINICAL HISTORY: Generalized abdominal pain. Fall. Syncope. Hypotension. COMPARISON STUDY: Abdominal CT dated 07/07/2019. TECHNIQUE: Following the IV administration of 117 cc of Optiray 320, CT scan of the abdomen and pelvis is performed from the lung bases to the proximal femora. Images are reviewed in the axial, sagittal, and coronal planes. IV contrast was administered without complication. A dose lowering technique was utilized adhering to the principles of ALARA. FINDINGS: Lung bases: The heart is normal in size and without pericardial effusion. The lung bases are clear noting dependent scarring/atelectasis. There is a small hiatal hernia. Liver: The contrast-enhanced liver is normal in size, contour, and attenuation. There is no intrahepatic biliary ductal dilatation. The hepatic veins and portal veins were not opacified due to early phase of enhancement. Gallbladder: Unremarkable. Spleen: Normal in size and attenuation. Pancreas: Unremarkable. Adrenal glands: Unremarkable. Kidneys: The contrast enhanced kidneys are normal in size and without hydronephrosis. The kidneys enhance symmetrically. A 5.8 cm complex cyst with layering calcifications is again seen in the upper pole of the left kidney. This has modestly increased in size as compared to 2020. Abdominal vasculature: The abdominal aorta is normal in course and caliber noting moderate to advanced atherosclerotic calcification. No dissection is seen. The iliac vessels are patent. The superior mesenteric artery and celiac trunk are widely patent. Bowel: The small bowel loops and colon are fluid-filled. There is mild diffuse wall thickening seen throughout the:. No pneumatosis intestinalis or portal venous gas is identified. There is no bowel obstruction. The appendix is normal as visualized. Peritoneum: No intraperitoneal free air is identified. There is trace pelvic ascites. Lymphadenopathy: None. Pelvic viscera: The prostate gland is mildly heterogeneous. The bladder wall is thickened/trabeculated indicating chronic outlet obstruction. There is pericystic inflammation. Skeletal structures: The skeletal structures are osteopenic. There is mild lumbosacral spondylosis. No lytic or blastic lesions are seen. IMPRESSION: 1. The small bowel loops and colon are mildly distended and fluid-filled. Mild wall thickening is noted throughout the colon. Findings could be seen with a nonspecific enterocolitis. This could also be related to the reported history of hypertension. Clinical correlation will be essential. 2. There is no intraperitoneal free air, pneumatosis intestinalis, or portal venous gas. This even small bowel thickening is seen. 3. There is no bowel obstruction. Ileus is not excluded. 4. There is trace pelvic ascites. 5. The mesenteric arteries are widely patent. 6. There is pericystic inflammation. Correlated with clinical findings and urinalysis. 7. Additional findings as above. ACT 112: Negative or not required by law. Electronically signed by: Jose Arreguin M.D. 12/25/2022 7:04 PM Chest CTA 12/25/22 17:50 CT ANGIOGRAM OF THE CHEST COMBO CLINICAL HISTORY: Fall. Syncope. Hypotension. COMPARISON STUDY: Chest x-ray dated 12/25/2022. Chest CT dated 11/02/2021. TECHNIQUE: Before and following the IV administration of 117 cc of Optiray 320, CT angiogram of the chest was performed from the thoracic inlet to the upper abdomen utilizing the dissection protocol. Images are reviewed in the axial, sagittal, and coronal planes. 3-D MIPS images are created and assessed. IV contrast was administered without complication. A dose lowering technique was utilized adhering to the principles of ALARA. FINDINGS: Thyroid: Imaged portions of the thyroid gland are normal in size and attenuation. Thoracic aorta: No intramural hematoma is identified on the unenhanced series. The thoracic aorta is normal in caliber and demonstrates standard 3-vessel arch anatomy. No dissection is seen. The arch vessels are widely patent. Pulmonary vasculature: The pulmonary trunk is normal in caliber. There is a small linear filling defect within a segmental branch of the left upper lobe pulmonary artery seen on axial image #91. No additional filling defects are identified within the main, lobar, or segmental pulmonary arteries to indicate pulmonary embolus. Heart: The heart is top normal in size and without pericardial effusion. There are coronary artery calcifications. Esophagus: The esophageal wall appears diffusely thickened with mild surrounding infiltration. Lungs and pleural spaces: There is no airspace consolidation or pleural effusion. The trachea and central airways are clear. Scarring/atelectasis is noted at the lung bases. A calcific granuloma is seen in the left upper lobe. Mediastinum: There is no mediastinal lymphadenopathy. Gina: Clear. Axillae: There is no axillary lymphadenopathy. Upper abdomen: A 5.2 cm complex cyst is seen in the upper pole of the left kidney. Partially visualized upper abdominal viscera is otherwise grossly unremarkable. Skeletal structures: No lytic or blastic bony lesions are seen. IMPRESSION: 1. Unremarkable CT angiogram of the thoracic aorta. 2. There is a small and age-indeterminate linear filling defect suggesting a tiny pulmonary embolus within a branch of the left upper lobe pulmonary artery. This is linear in configuration and could be chronic or even potentially artifactual. A short-term (24-48 hour) follow-up with a dedicated pulmonary embolus CT angiogram could be considered for reevaluation. 3. No additional findings are suspicious for pulmonary embolus. 4. The soft tissue wall appears diffusely thickened and there is surrounding infiltration. Correlate clinically for evidence of esophagitis. If warranted this could be further assessed with endoscopy. 5. There is no airspace consolidation or pleural effusion. 6. Additional findings as above. ACT 112: Negative or not required by law. Electronically signed by: Jose Arreguin M.D. 12/25/2022 7:[address] 12/25/22 17:52 CT SCAN OF THE CERVICAL SPINE CLINICAL HISTORY: Syncope. Fall. COMPARISON STUDY: CT of the cervical spine dated 07/08/2014. TECHNIQUE: CT scan of the cervical spine is performed from the skull base to the upper thoracic spine. Images are reviewed in the axial, sagittal, and coronal planes. IV contrast was not administered for this examination. A dose lowering technique was utilized adhering to the principles of ALARA. FINDINGS: Skeletal structures: The skeletal structures are well mineralized. There is no evidence of fracture or subluxation involving the cervical spine. Vertebral body height and alignment are maintained. There is straightening of the cervical lordosis. Anterior osteophytes are seen throughout. The odontoid process and lateral masses are intact. The atlantoaxial articulation is preserved noting mild productive degenerative change. The spinous processes appear intact. There is mild/moderate multilevel cervical spondylosis. Uncovertebral and facet arthropathy contribute to neural foraminal narrowing at several levels. Intervertebral discs: There is moderate disc space narrowing at C6-C7 and C7-T1. Mild narrowing is seen at the remaining cervical levels. Central canal: Posterior disc osteophyte complexes at C5-C6 and C6-C7 may contribute to mild acquired compromise of the central canal. Soft tissues: The prevertebral and paraspinous soft tissues are within normal limits. There is atherosclerotic calcification of the carotid bulbs. Calvarium: The visualized calvarium at the skull base appears intact. Brain parenchyma: Partially visualized brain parenchyma at the skull base is within normal limits. Sinuses and mastoids: The visualized paranasal sinuses are clear. The mastoid air cells are well pneumatized. Cerumen is noted in the external auditory canals. Lung apices: Clear as visualized. IMPRESSION: 1. There is no evidence of cervical spine fracture or subluxation. 2. Spondylotic change as above. ACT 112: Negative or not required by law. Electronically signed by: Jose Arreguin M.D. 12/25/2022 6:[address] 12/25/22 17:52 CT SCAN OF THE BRAIN WITHOUT IV CONTRAST CLINICAL HISTORY: Syncope. Fall. COMPARISON STUDY: CT of the brain dated 11/02/2021. TECHNIQUE: Unenhanced axial CT scan of the brain is performed from the vertex to the skull base. A dose lowering technique was utilized adhering to the principles of ALARA. CT DOSE: 5305.66 mGy.cm FINDINGS: Brain parenchyma: The brain parenchyma is normal in appearance. There is no hemorrhage, mass effect, or evidence of acute territorial ischemia by CT criteria. Mendoza-white matter differentiation is preserved. No extra-axial fluid collection is seen. Ventricles, sulci, cisterns: Normal in configuration. Intracranial vasculature: There is atherosclerotic calcification of the c avernous carotid arteries. Calvarium: Unremarkable. Sinuses and mastoids: The visualized paranasal sinuses are clear. The mastoid air cells are well pneumatized. Orbits: The bony orbits are grossly intact. IMPRESSION: No acute intracranial abnormality. ACT 112: Negative or not required by law. Electronically signed by: Jose Arreguin M.D. 12/25/2022 6:33 PM Discharge Plan Visit Data Chief Complaint: Chest Pain Stated Complaint: CHEST PAIN, SYNCOPE, SOB ED Provider: Ned Fuentes Discharge Problem: Sepsis, Chest pain, Atrial fibrillation with rapid ventricular response, Acute hypotension, Acute non-ST elevation myocardial infarction (NSTEMI) Patient Disposition: Admitted As Inpatient Discharge Instructions Interventions: ED Discharge Assessment Last Done: 12/25/22 22:25 Sepsis Qualifiers: Sepsis type: sepsis due to unspecified organism Sepsis acute organ dysfunction status: unspecified Qualified Code(s): A41.9 - Sepsis, unspecified organism Chest pain Qualifiers: Chest pain type: unspecified Qualified Code(s): R07.9 - Chest pain, unspecified
--- NOTE | 2022-12-25 18:45 | CT Scan Report ---
CT SCAN OF THE CERVICAL SPINE CLINICAL HISTORY: Syncope. Fall. COMPARISON STUDY: CT of the cervical spine dated 07/08/2014. TECHNIQUE: CT scan of the cervical spine is performed from the skull base to the upper thoracic spine . Images are reviewed in the axial, sagittal, and coronal planes. IV contrast was not administered fo r this examination. A dose lowering technique was utilized adhering to the principles of ALARA. FINDINGS: Skeletal structures: The skeletal structures are well mineralized. There is no evidence of fracture o r subluxation involving the cervical spine. Vertebral body height and alignment are maintained. Ther e is straightening of the cervical lordosis. Anterior osteophytes are seen throughout. The odontoid p rocess and lateral masses are intact. The atlantoaxial articulation is preserved noting mild producti ve degenerative change. The spinous processes appear intact. There is mild/moderate multilevel cervic al spondylosis. Uncovertebral and facet arthropathy contribute to neural foraminal narrowing at sever al levels. Intervertebral discs: There is moderate disc space narrowing at C6-C7 and C7-T1. Mild narrowing is se en at the remaining cervical levels. Central canal: Posterior disc osteophyte complexes at C5-C6 and C6-C7 may contribute to mild acquired compromise of the central canal. Soft tissues: The prevertebral and paraspinous soft tissues are within normal limits. There is athero sclerotic calcification of the carotid bulbs. Calvarium: The visualized calvarium at the skull base appears intact. Brain parenchyma: Partially visualized brain parenchyma at the skull base is within normal limits. Sinuses and mastoids: The visualized paranasal sinuses are clear. The mastoid air cells are well pneu matized. Cerumen is noted in the external auditory canals. Lung apices: Clear as visualized. IMPRESSION: 1. There is no evidence of cervical spine fracture or subluxation. 2. Spondylotic change as above. ACT 112: Negative or not required by law. Electronically signed by: Jose Arreguin M.D. 12/25/2022 6:44 PM
[2022-12-25 18:50] LABS: Partial Thromboplastin Ratio 0.8; Partial Thromboplastin Time 21.4 Seconds (21.0-31.0); Prothrombin Time 10.9 Seconds (9.0-12.0)
[2022-12-25 18:53] LABS: D Dimer 11090 ug/L FEU (0-500)
[2022-12-25] MEDS: POTASSIUM CHLORIDE / WTR 10 MEQ/100 ML PLCT IV SCH ×2 (18:58→19:55)
[2022-12-25 19:05] LABS: Base Excess ABG -16.8 mEq/L (-9-1.8); HCO3 ABG 11 mmol/L (19-24); Oxygen Saturation ABG 98.3 % (90-95); PCO2 ABG 31 mmHg (35-46); PO2 ABG 109 mmHg (80-95)
--- NOTE | 2022-12-25 19:06 | CT Scan Report ---
CT SCAN OF THE ABDOMEN AND PELVIS WITH IV CONTRAST CLINICAL HISTORY: Generalized abdominal pain. Fall. Syncope. Hypotension. COMPARISON STUDY: Abdominal CT dated 07/07/2019. TECHNIQUE: Following the IV administration of 117 cc of Optiray 320, CT scan of the abdomen and pelv is is performed from the lung bases to the proximal femora. Images are reviewed in the axial, sagitta l, and coronal planes. IV contrast was administered without complication. A dose lowering technique w as utilized adhering to the principles of ALARA. FINDINGS: Lung bases: The heart is normal in size and without pericardial effusion. The lung bases are clear no ting dependent scarring/atelectasis. There is a small hiatal hernia. Liver: The contrast-enhanced liver is normal in size, contour, and attenuation. There is no intrahepa tic biliary ductal dilatation. The hepatic veins and portal veins were not opacified due to early pha se of enhancement. Gallbladder: Unremarkable. Spleen: Normal in size and attenuation. Pancreas: Unremarkable. Adrenal glands: Unremarkable. Kidneys: The contrast enhanced kidneys are normal in size and without hydronephrosis. The kidneys enh ance symmetrically. A 5.8 cm complex cyst with layering calcifications is again seen in the upper ricki e of the left kidney. This has modestly increased in size as compared to 2020. Abdominal vasculature: The abdominal aorta is normal in course and caliber noting moderate to advance d atherosclerotic calcification. No dissection is seen. The iliac vessels are patent. The superior me senteric artery and celiac trunk are widely patent. Bowel: The small bowel loops and colon are fluid-filled. There is mild diffuse wall thickening seen t hroughout the:. No pneumatosis intestinalis or portal venous gas is identified. There is no bowel obs truction. The appendix is normal as visualized. Peritoneum: No intraperitoneal free air is identified. There is trace pelvic ascites. Lymphadenopathy: None. Pelvic viscera: The prostate gland is mildly heterogeneous. The bladder wall is thickened/trabeculate d indicating chronic outlet obstruction. There is pericystic inflammation. Skeletal structures: The skeletal structures are osteopenic. There is mild lumbosacral spondylosis. N o lytic or blastic lesions are seen. IMPRESSION: 1. The small bowel loops and colon are mildly distended and fluid-filled. Mild wall thickening is not ed throughout the colon. Findings could be seen with a nonspecific enterocolitis. This could also be related to the reported history of hypertension. Clinical correlation will be essential. 2. There is no intraperitoneal free air, pneumatosis intestinalis, or portal venous gas. This even sm all bowel thickening is seen. 3. There is no bowel obstruction. Ileus is not excluded. 4. There is trace pelvic ascites. 5. The mesenteric arteries are widely patent. 6. There is pericystic inflammation. Correlated with clinical findings and urinalysis. 7. Additional findings as above. ACT 112: Negative or not required by law. Electronically signed by: Jose Arreguin M.D. 12/25/2022 7:04 PM
--- NOTE | 2022-12-25 19:19 | CT Scan Report ---
CT ANGIOGRAM OF THE CHEST COMBO CLINICAL HISTORY: Fall. Syncope. Hypotension. COMPARISON STUDY: Chest x-ray dated 12/25/2022. Chest CT dated 11/02/2021. TECHNIQUE: Before and following the IV administration of 117 cc of Optiray 320, CT angiogram of the c hest was performed from the thoracic inlet to the upper abdomen utilizing the dissection protocol. Im ages are reviewed in the axial, sagittal, and coronal planes. 3-D MIPS images are created and assesse d. IV contrast was administered without complication. A dose lowering technique was utilized adherin g to the principles of ALARA. FINDINGS: Thyroid: Imaged portions of the thyroid gland are normal in size and attenuation. Thoracic aorta: No intramural hematoma is identified on the unenhanced series. The thoracic aorta is normal in caliber and demonstrates standard 3-vessel arch anatomy. No dissection is seen. The arch ve ssels are widely patent. Pulmonary vasculature: The pulmonary trunk is normal in caliber. There is a small linear filling defe ct within a segmental branch of the left upper lobe pulmonary artery seen on axial image #91. No andrés tional filling defects are identified within the main, lobar, or segmental pulmonary arteries to rafy roosevelt pulmonary embolus. Heart: The heart is top normal in size and without pericardial effusion. There are coronary artery ca lcifications. Esophagus: The esophageal wall appears diffusely thickened with mild surrounding infiltration. Lungs and pleural spaces: There is no airspace consolidation or pleural effusion. The trachea and avery tral airways are clear. Scarring/atelectasis is noted at the lung bases. A calcific granuloma is seen in the left upper lobe. Mediastinum: There is no mediastinal lymphadenopathy. Gina: Clear. Axillae: There is no axillary lymphadenopathy. Upper abdomen: A 5.2 cm complex cyst is seen in the upper pole of the left kidney. Partially visualiz ed upper abdominal viscera is otherwise grossly unremarkable. Skeletal structures: No lytic or blastic bony lesions are seen. IMPRESSION: 1. Unremarkable CT angiogram of the thoracic aorta. 2. There is a small and age-indeterminate linear filling defect suggesting a tiny pulmonary embolus w ithin a branch of the left upper lobe pulmonary artery. This is linear in configuration and could be chronic or even potentially artifactual. A short-term (24-48 hour) follow-up with a dedicated pulmona ry embolus CT angiogram could be considered for reevaluation. 3. No additional findings are suspicious for pulmonary embolus. 4. The soft tissue wall appears diffusely thickened and there is surrounding infiltration. Correlate clinically for evidence of esophagitis. If warranted this could be further assessed with endoscopy. 5. There is no airspace consolidation or pleural effusion. 6. Additional findings as above. ACT 112: Negative or not required by law. Electronically signed by: Jose Arreguin M.D. 12/25/2022 7:16 PM
[2022-12-25] MEDS ORDERED: PIPERACILLIN/TAZOBACTAM 4.5 GM/100 ML BAG IV ONE (19:21)
[2022-12-25 19:22] LABS: Basophils # (auto) 0.01 K/uL (0.00-0.20); Basophils % (auto) 0.2 %; Eosinophils # (auto) 0.05 K/uL (0.00-0.50); Immature Granulocytes # (auto) 0.03 K/uL (0.01-0.20); Immature Granulocytes % (auto) 0.6 %; Lymphocytes # (auto) 1.66 K/uL (1.20-3.40); Lymphocytes % (auto) 32.5 %; Monocytes # (auto) 0.02 K/uL (0.11-0.59); Monocytes % (auto) 0.4 %; Neutrophils # (auto) 3.34 K/uL (1.40-6.50); Neutrophils % (auto) 65.3 %
[2022-12-25 19:33] LABS: Allen Test Pos (Pos); pH ABG 7.15 (7.35-7.45)
[2022-12-25] MEDS ORDERED: STAT IV Infusion **Titration per Protocol STA (19:50)
[2022-12-25] MEDS: NOREPINEPHRINE/D5W 4 MG/250 ML PLCT IV SCH (19:54)
[2022-12-25] MEDS ORDERED: diphenhydrAMINE 50 MG/ML VIAL IV STA (20:12)
[2022-12-25] MEDS: MAGNESIUM SULFATE / D5W 1 GM/100 ML BAG IV SCH ×2 (20:36→21:18)
[2022-12-25] MEDS ORDERED: AMIODARONE / D5W 360 MG/200 ML BAG IV ONE (20:37)
[2022-12-25] MEDS ORDERED: AMIODARONE / D5W 150 MG/100 ML BAG IV STA (20:37)
[2022-12-25] MEDS ORDERED: 0.2 MICRON FILTER SET 1 EACH IV ONE (20:37)
--- NOTE | 2022-12-25 21:05 | Critical Care Consultation ---
Date of Consultation December 25, 2022 Assessment & Plan (1) Atrial fibrillation with rapid ventricular response: (2) Acute hypotension: (3) Elevated troponin: (4) Abnormal chest CT: (5) Electrolyte abnormality: (6) Metabolic acidosis: (7) GERD (gastroesophageal reflux disease): (8) HLD (hyperlipidemia): Plan Reason Critically Ill: 67 YOM presents tachycardic in afib, hypotensive and with chest pressure. Received multiple fluid boluses and initiation of vasopressors in setting of metabolic acidosis and hypovolemia. Neuro - Chronic shoulder pain, fall, ETOH dependance/misuse CAM ICU: Negative - CT head and cervical spine interpreted as negative for acute process- syncope likely related to hypotension vs. afib or combination of both - AWWS scoring and coverage with Ativan - Continue Thiamine Cardiac - Afib, Shock, Elevated HsCTNI, HLD - Presents in PAF which appears as new onset- without STEMI on ECG- amiodarone initiated- resulting in rate and rythm control - CHADSvasc2- 0 with current information - reevaluate with ECHO in am - CRP negative and is without pericardial effusion noted on CTA of chest - Shock- undifferentiated but favors hypovolemia- cortisol >20 - wean vasopressors as able - Continue with volume replacement and electrolyte replacements - Elevated HScTNI - NStemi vs demand- as he did present with chest pressure- previously had favorable EST in 2020 - Initiate heparin infusion for multiple purposes- afib, poss subacute PE, and elevated troponin - currently chest pain free with rate control - ECHO in am to evaluate for RWMA - Appreciate cardiology recommendations and consultation- further risk stratify - Continue statin Respiratory - Abnormal CTA of chest - Subacute PE vs. artifact- Heparin infusion as above - consider follow up scan for determination of PE GI - GERD - no acute needs, continue PPI RENAL/LYTES - Multiple electrolyte derangement, metabolic acidosis, elevated lactate - Likely all related to hypovolemia and etoh use/misuse - corrected well with 4liters of crystalloid infusion - continue with plasmalyte until urine output increases - electrolyte protocol - thimaine daily - BPH - bladder scan prn - follow urine output ENDO - Elevated serum glucose without diagnosis of DM - no acute needs, consider checking HGBA1c in am for cardiac risk factor HEME - No acute needs ID - No suspicion at this time of infectious etiology or sepsis - WBC normal, PCT negative, Urine negative, no pulmonary process LINES/IV ACCESS - PIV, CVL - Femoral CVL placed in EMD - unsure of sterility- remove in as applicable pending pressor need Continue use of these lines DVT PROPHYLAXIS - SCDS, Heparin infusion DISPO: ICU while on vasopressors I have personally spent 65 minutes of critical care time in the direct management of this patient. This is a life/limb threatening event. This includes time spent evaluating patient, direct bedside care, chart review, placing orders, interpretation of diagnostic studies, discussion with consultants, patient, and family members, as well as other required patient management activities. This time is exclusive of all separately billable procedures, and teaching time and separate from and in addition to any other critical care service time. Thank you for allowing us to participate in the care of this patient. Please refer to my attending physician's documentation for any further recommendations. History of Present Illness Reason for Consultation: Afib RVR, hypotensive, metabolic acidosis Requesting Physician: Keith Fuentes MD Attending Physician: Troy Maher MD History of Present Illness 67 YOM with medical history HLD, GERD, BPH. Presents to the EMD today by EMS for complaints of chest heaviness, dizziness, and difficulty breathing. He was noted to be hypotensive and tachycardic on presentation to EMD with ECGs noted with Afib 130s then in NSR 100's, and then back to Afib 160s-180s. There was some initial concern by EMD for possible anaphylaxis secondary to patient reports of itching and burning over his body as well as with non-specific rash reported over chest and arms. There was no pulmonary component of wheezing or stridor, but with dyspnea. He reports that he did just travel from [place] via car and got home about 2 hours ago. Reports that he ate cinnamon gummi bears, peanut butter and crackers on the way and has had nothing else to eat. Reports having 3 beers today, which he normally drinks 6-8 beers per day. Endorses that he did take a pain pill today for his shoulder, but could not remember what it was. He denies any other recreational/illicit drug use. He is accompanied by his and son. He had routine labs performed to include D-dimer and HsCTNI. He had CTA of the chest performed, CXR and ECG. He also underwent placement of femoral central line and placed on Levophed with minimal response to BP. His labs were notable for PH of 7.15, CO2 31, HCo3 of 11. ETOH of 104, HsCTNI 24 which increased to 161 at 1999. I was called to the bedside by EMD provider to review the case, following volume resuscitation, steroid administration, abx, and thiamine. As he was still tachycardic to the 180s with ventricular ectopy 4-5 beats and with escalating pressor requirement. At that time discussion was for cardioversion vs. short course of IV epinephrine, however as above with no wheezing or with explicit wheels or hives noted or tongue involvement, felt that rhythm was likely causing his hypotension as well as notable dehydration as well. He received another bolus of LR for 4 liters of crystalloid and 2 gm of magnesium was instituted. Discussed the case with Dr. Armas of Cardiology. Recommendation was made at that time for amiodarone as it was felt if he was cardioverted at this time, he had high likelihood of re-emergence of afib with RVR. Amiodarone 150mg bolus and drip was administered. Patient was evaluated shortly after with HR decreased to 120s-130s and in sinus. His vasopressor requirements are downtrending. He also endorses that his chest pressure he was previously experiencing has gone away. His CTA of his chest was with possible PE age indeterminate vs. artifact, however was without pericardial effusion or pulmonary disease. Patient will be admitted to ICU for continuation of rate control vs. rhythm control, continue with volume replacement and electrolyte replacements as he is with multiple derangements. Will initiate heparin infusion secondary to afib, Possible PE, and elevated HsCTNI. Will re-evaluate acid base balance and lactate. CODE: FULL Allergies Allergy/AdvReac Type Severity Reaction Status Date / Time No Known Allergies Allergy Verified 08/22/19 14:45 Home Medications Medication Instructions Recorded Confirmed Type atorvastatin 20 mg tablet (Lipitor) 20 mg PO DAILY 08/22/19 08/22/19 History pantoprazole 40 mg tablet,delayed 40 mg PO DAILY 08/22/19 08/22/19 History release (Protonix) sucralfate 1 gram tablet (Carafate) 1 gm PO BID 08/22/19 08/22/19 History Patient History Medical History (Updated 12/26/22 @ 00:09 by SUYAPA Jean) Alcohol intoxication BPH with obstruction/lower urinary tract symptoms Chronic shoulder pain GERD (gastroesophageal reflux disease) HLD (hyperlipidemia) No significant past medical history Surgical History H/O hernia repair Family History Brother Heart disease Mother Breast cancer Leukemia Social History Smoking Status: Former smoker Tobacco Type: Smokeless Tobacco (Dip or Chew) Second Hand Exposure: No; Do You Dip or Chew Tobacco: No; Tobacco Cessation Education Requested by Patient: No Hx Alcohol Use: Yes Alcohol type: beer Hx Substance Use: No Preferred Language: [place] Communication Ability: Effective 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 Beliefs That Will Affect Care: None marital status: Current Living Situation: Spouse Other Information That Helps Us Care for You: No Feels Safe at Home: Yes Safety Concerns: Feels Safe At This Time Assistive Devices: Glasses Review of Systems Review of Systems: REVIEW OF SYSTEMS: Constitutional: No fever, sweats or chills Eyes: No diplopia, no worsening or blurred vision ENT: normal hearing, no trouble swallowing Respiratory: (+) dyspnea, No cough, sputum, Cardiovascular: (+) chest pressure and heaviness, palpitations, Abdomen: No pain, nausea, vomiting, diarrhea or constipation Musculoskeletal: (+) left shoulder joint pain, No calf pain, swelling Neurologic: No weakness, numbness/tingling, or balance problems Psychiatric: (+) ETOH use, No anxiety or depression Skin: (+) itching and burning- resolving, No rash or itch Physical Exam Physical Exam: PHYSICAL EXAM: General: awake, alert, intoxicated appearing Head: Normocephalic, atraumatic ENT: PERRLA, EOMI, no pharyngeal exudate, no tongue swelling, mucous membranes dry Neuro: AAO x 3, speech clear and appropriate, strength intact bilaterally 5/5, sensation intact and equal all extremities and dermatomes, no pronator drift Chest: equal rise and fall of the chest, no accessory muscle use, Clear to auscultation without wheeze or stridor, on room air, Cardiac: Regular rate and rhythm, telemetry reviewed, skin warm dry, cap refill <3 seconds, peripheral pulses +2 no JVD, no murmur, no edema GI: NABS x 4 quadrants, soft, nontender to palpation, no rebound, guarding or tenderness : awaiting void, no pain, no CVA tenderness, Extremities: Normal inspection, no peripheral edema or erythema, calfs nontender to palpation Psych: Normal mood and affect Skin: no discernable rash, but with flushing to face and chest Results & Data Results & Data Vital Signs (Past 12 Hours) Vital Signs Temp Pulse Resp BP Pulse Ox O2 Del Method 12/25/22 20:41 175 H 12/25/22 20:37 178 H 12/25/22 19:30 160 H 22 61/52 L 100 Room Air 12/25/22 19:26 156 H 19 71/47 L 100 Room Air 12/25/22 19:21 166 H 19 71/44 L 93 Room Air 12/25/22 19:17 163 H 22 72/38 L 94 Room Air 12/25/22 19:10 149 H 18 71/41 L 91 Room Air 12/25/22 19:05 147 H 20 73/39 L 93 Room Air 12/25/22 19:26 36.4 C L 12/25/22 19:00 151 H 22 64/51 L 12/25/22 18:56 150 H 22 85/37 L 12/25/22 18:54 144 H 19 76/57 L 12/25/22 18:51 137 H 19 68/42 L 96 Room Air 12/25/22 18:45 149 H 24 12/25/22 18:45 78/49 L 12/25/22 18:42 133 H 24 12/25/22 18:40 137 H 21 12/25/22 18:36 161 H 22 12/25/22 18:36 82/54 L 12/25/22 18:35 162 H 24 12/25/22 18:35 65/43 L 12/25/22 18:30 152 H 27 H 12/25/22 18:27 139 H 20 12/25/22 18:27 90/48 L 12/25/22 18:25 126 H 22 95 12/25/22 18:24 140 H 23 12/25/22 17:55 126 H 21 96 12/25/22 17:55 54/34 L 12/25/22 17:51 126 H 17 96 12/25/22 18:36 Room Air 12/25/22 18:36 93 Room Air 12/25/22 18:36 142 H 22 82/54 L 93 Room Air 12/25/22 17:52 125 H Laboratory Results Abnormal lab results 12/25/22 12/25/22 12/25/22 Range/Units 17:53 17:53 17:53 [place] # (Auto) 0.02 L (0.11-0.59) K/uL D-Dimer 18765 H* (0-500) ug/L FEU ABG pH (7.35-7.45) ABG pCO2 (35-46) mmHg ABG pO2 (80-95) mmHg ABG HCO3 (19-24) mmol/L ABG O2 Saturation (90-95) % ABG Base Excess (-9-1.8) mEq/L VBG pH (7.36-7.41) POC Potassium (3.3-5.0) mmol/L Potassium 2.7 L (3.5-5.1) mmol/L Chloride (98-107) mmol/L Carbon Dioxide 20 L (21-32) mmol/L POC Total CO2 (24-31) mmol/L Anion Gap 12 H (3-11) BUN/Creatinine Ratio 8.5 L (10-20) Glucose 190 H (70-99(Fasting)) mg/dl POC Glucose (other) (70-99) mg/dl Lactate (0.4-2.0) mmol/L Calcium 8.3 L (8.6-10.3) mg/dl POC Ioniz Calcium [place] (1.12-1.32) mmol/l Troponin I High Sens 24.8 H (0-20) pg/ml Globulin 2.2 L (2.5-4.0) gm/dl Urine Appearance (Clear) Ur Specific [place] (1.000-1.030) Urine Protein (Negative) Urine Glucose (UA) (Negative) Urine Blood (Negative) Urine WBC (Auto) (0-5) /hpf U Epithel Cells (Auto) (0-5) /lpf Granular Casts (0) /lpf Ethyl Alcohol mg/dL (<10.0) mg/dl 12/25/22 12/25/22 12/25/22 Range/Units 17:53 17:59 18:51 [place] # (Auto) (0.11-0.59) K/uL D-Dimer (0-500) ug/L FEU ABG pH 7.15 L* (7.35-7.45) ABG pCO2 31 L (35-46) mmHg ABG pO2 109 H (80-95) mmHg ABG HCO3 11 L (19-24) mmol/L ABG O2 Saturation 98.3 H (90-95) % ABG Base Excess -16.8 L (-9-1.8) mEq/L VBG pH (7.36-7.41) POC Potassium 2.6 L (3.3-5.0) mmol/L Potassium (3.5-5.1) mmol/L Chloride (98-107) mmol/L Carbon Dioxide (21-32) mmol/L POC Total CO2 20 L (24-31) mmol/L Anion Gap (3-11) BUN/Creatinine Ratio (10-20) Glucose (70-99(Fasting)) mg/dl POC Glucose (other) 184 H (70-99) mg/dl Lactate (0.4-2.0) mmol/L Calcium (8.6-10.3) mg/dl POC Ioniz Calcium [place] 1.03 L (1.12-1.32) mmol/l Troponin I High Sens (0-20) pg/ml Globulin (2.5-4.0) gm/dl Urine Appearance (Clear) Ur Specific Mobile (1.000-1.030) Urine Protein (Negative) Urine Glucose (UA) (Negative) Urine Blood (Negative) Urine WBC (Auto) (0-5) /hpf U Epithel Cells (Auto) (0-5) /lpf Granular Casts (0) /lpf Ethyl Alcohol mg/dL 104.9 H (<10.0) mg/dl 12/25/22 12/25/22 12/25/22 Range/Units 20:06 23:15 23:15 [place] # (Auto) (0.11-0.59) K/uL D-Dimer (0-500) ug/L FEU ABG pH (7.35-7.45) ABG pCO2 (35-46) mmHg ABG pO2 (80-95) mmHg ABG HCO3 (19-24) mmol/L ABG O2 Saturation (90-95) % ABG Base Excess (-9-1.8) mEq/L VBG pH 7.31 L (7.36-7.41) POC Potassium (3.3-5.0) mmol/L Potassium (3.5-5.1) mmol/L Chloride (98-107) mmol/L Carbon Dioxide (21-32) mmol/L POC Total CO2 (24-31) mmol/L Anion Gap (3-11) BUN/Creatinine Ratio (10-20) Glucose (70-99(Fasting)) mg/dl POC Glucose (other) (70-99) mg/dl Lactate 2.2 H* (0.4-2.0) mmol/L Calcium (8.6-10.3) mg/dl POC Ioniz Calcium [place] (1.12-1.32) mmol/l Troponin I High Sens 161.1 H* D (0-20) pg/ml Globulin (2.5-4.0) gm/dl Urine Appearance (Clear) Ur Specific Mobile (1.000-1.030) Urine Protein (Negative) Urine Glucose (UA) (Negative) Urine Blood (Negative) Urine WBC (Auto) (0-5) /hpf U Epithel Cells (Auto) (0-5) /lpf Granular Casts (0) /lpf Ethyl Alcohol mg/dL (<10.0) mg/dl 12/25/22 12/25/22 Range/Units 23:15 Unknown [place] # (Auto) (0.11-0.59) K/uL D-Dimer (0-500) ug/L FEU ABG pH (7.35-7.45) ABG pCO2 (35-46) mmHg ABG pO2 (80-95) mmHg ABG HCO3 (19-24) mmol/L ABG O2 Saturation (90-95) % ABG Base Excess (-9-1.8) mEq/L VBG pH (7.36-7.41) POC Potassium (3.3-5.0) mmol/L Potassium 3.4 L D (3.5-5.1) mmol/L Chloride 109 H (98-107) mmol/L Carbon Dioxide 20 L (21-32) mmol/L POC Total CO2 (24-31) mmol/L Anion Gap (3-11) BUN/Creatinine Ratio 9.9 L (10-20) Glucose 168 H (70-99(Fasting)) mg/dl POC Glucose (other) (70-99) mg/dl Lactate (0.4-2.0) mmol/L Calcium 7.1 L (8.6-10.3) mg/dl POC Ioniz Calcium [place] (1.12-1.32) mmol/l Troponin I High Sens 369.5 H* D (0-20) pg/ml Globulin (2.5-4.0) gm/dl Urine Appearance Cloudy A (Clear) Ur Specific [place] > 1.045 H (1.000-1.030) Urine Protein 2+ H (Negative) Urine Glucose (UA) Trace H (Negative) Urine Blood 1+ H (Negative) Urine WBC (Auto) 10-30 H (0-5) /hpf U Epithel Cells (Auto) >30 H (0-5) /lpf Granular Casts 1-5 H (0) /lpf Ethyl Alcohol mg/dL (<10.0) mg/dl Diagnostic Findings Chest X-Ray 12/25/22 17:39 SINGLE VIEW CHEST CLINICAL HISTORY: Atypical chest pain. FINDINGS: An AP, portable, upright chest radiograph is compared to chest x-ray and chest CT dated 11/02/2021. The examination is degraded by portable technique and patient rotation. The heart is mildly enlarged. The pulmonary vasculature is noncongested. The lungs and pleural spaces are clear. No pneumothorax is seen. The skeletal structures are osteopenic. The bony thorax is grossly intact. IMPRESSION: No active disease in the chest. ACT 112: Negative or not required by law. Electronically signed by: Jose Arreguin M.D. 12/25/2022 6:02 PM Abdomen/Pelvis CT 12/25/22 17:50 CT SCAN OF THE ABDOMEN AND PELVIS WITH IV CONTRAST CLINICAL HISTORY: Generalized abdominal pain. Fall. Syncope. Hypotension. COMPARISON STUDY: Abdominal CT dated 07/07/2019. TECHNIQUE: Following the IV administration of 117 cc of Optiray 320, CT scan of the abdomen and pelvis is performed from the lung bases to the proximal femora. Images are reviewed in the axial, sagittal, and coronal planes. IV contrast was administered without complication. A dose lowering technique was utilized adhering to the principles of ALARA. FINDINGS: Lung bases: The heart is normal in size and without pericardial effusion. The lung bases are clear noting dependent scarring/atelectasis. There is a small hiatal hernia. Liver: The contrast-enhanced liver is normal in size, contour, and attenuation. There is no intrahepatic biliary ductal dilatation. The hepatic veins and portal veins were not opacified due to early phase of enhancement. Gallbladder: Unremarkable. Spleen: Normal in size and attenuation. Pancreas: Unremarkable. Adrenal glands: Unremarkable. Kidneys: The contrast enhanced kidneys are normal in size and without hydronephrosis. The kidneys enhance symmetrically. A 5.8 cm complex cyst with layering calcifications is again seen in the upper pole of the left kidney. This has modestly increased in size as compared to 2020. Abdominal vasculature: The abdominal aorta is normal in course and caliber noting moderate to advanced atherosclerotic calcification. No dissection is seen. The iliac vessels are patent. The superior mesenteric artery and celiac trunk are widely patent. Bowel: The small bowel loops and colon are fluid-filled. There is mild diffuse wall thickening seen throughout the:. No pneumatosis intestinalis or portal venous gas is identified. There is no bowel obstruction. The appendix is normal as visualized. Peritoneum: No intraperitoneal free air is identified. There is trace pelvic ascites. Lymphadenopathy: None. Pelvic viscera: The prostate gland is mildly heterogeneous. The bladder wall is thickened/trabeculated indicating chronic outlet obstruction. There is pericystic inflammation. Skeletal structures: The skeletal structures are osteopenic. There is mild lumbosacral spondylosis. No lytic or blastic lesions are seen. IMPRESSION: 1. The small bowel loops and colon are mildly distended and fluid-filled. Mild wall thickening is noted throughout the colon. Findings could be seen with a nonspecific enterocolitis. This could also be related to the reported history of hypertension. Clinical correlation will be essential. 2. There is no intraperitoneal free air, pneumatosis intestinalis, or portal venous gas. This even small bowel thickening is seen. 3. There is no bowel obstruction. Ileus is not excluded. 4. There is trace pelvic ascites. 5. The mesenteric arteries are widely patent. 6. There is pericystic inflammation. Correlated with clinical findings and urinalysis. 7. Additional findings as above. ACT 112: Negative or not required by law. Electronically signed by: Jose Arreguin M.D. 12/25/2022 7:04 PM Chest CTA 12/25/22 17:50 CT ANGIOGRAM OF THE CHEST COMBO CLINICAL HISTORY: Fall. Syncope. Hypotension. COMPARISON STUDY: Chest x-ray dated 12/25/2022. Chest CT dated 11/02/2021. TECHNIQUE: Before and following the IV administration of 117 cc of Optiray 320, CT angiogram of the chest was performed from the thoracic inlet to the upper abdomen utilizing the dissection protocol. Images are reviewed in the axial, sagittal, and coronal planes. 3-D MIPS images are created and assessed. IV contrast was administered without complication. A dose lowering technique was utilized adhering to the principles of ALARA. FINDINGS: Thyroid: Imaged portions of the thyroid gland are normal in size and attenuation. Thoracic aorta: No intramural hematoma is identified on the unenhanced series. The thoracic aorta is normal in caliber and demonstrates standard 3-vessel arch anatomy. No dissection is seen. The arch vessels are widely patent. Pulmonary vasculature: The pulmonary trunk is normal in caliber. There is a small linear filling defect within a segmental branch of the left upper lobe pulmonary artery seen on axial image #91. No additional filling defects are identified within the main, lobar, or segmental pulmonary arteries to indicate pulmonary embolus. Heart: The heart is top normal in size and without pericardial effusion. There are coronary artery calcifications. Esophagus: The esophageal wall appears diffusely thickened with mild surrounding infiltration. Lungs and pleural spaces: There is no airspace consolidation or pleural effusion. The trachea and central airways are clear. Scarring/atelectasis is noted at the lung bases. A calcific granuloma is seen in the left upper lobe. Mediastinum: There is no mediastinal lymphadenopathy. Gina: Clear. Axillae: There is no axillary lymphadenopathy. Upper abdomen: A 5.2 cm complex cyst is seen in the upper pole of the left kidney. Partially visualized upper abdominal viscera is otherwise grossly unremarkable. Skeletal structures: No lytic or blastic bony lesions are seen. IMPRESSION: 1. Unremarkable CT angiogram of the thoracic aorta. 2. There is a small and age-indeterminate linear filling defect suggesting a tiny pulmonary embolus within a branch of the left upper lobe pulmonary artery. This is linear in configuration and could be chronic or even potentially artifactual. A short-term (24-48 hour) follow-up with a dedicated pulmonary embolus CT angiogram could be considered for reevaluation. 3. No additional findings are suspicious for pulmonary embolus. 4. The soft tissue wall appears diffusely thickened and there is surrounding infiltration. Correlate clinically for evidence of esophagitis. If warranted this could be further assessed with endoscopy. 5. There is no airspace consolidation or pleural effusion. 6. Additional findings as above. ACT 112: Negative or not required by law. Electronically signed by: Jose Arreguin M.D. 12/25/2022 7:[address] 12/25/22 17:52 CT SCAN OF THE CERVICAL SPINE CLINICAL HISTORY: Syncope. Fall. COMPARISON STUDY: CT of the cervical spine dated 07/08/2014. TECHNIQUE: CT scan of the cervical spine is performed from the skull base to the upper thoracic spine. Images are reviewed in the axial, sagittal, and coronal planes. IV contrast was not administered for this examination. A dose lowering technique was utilized adhering to the principles of ALARA. FINDINGS: Skeletal structures: The skeletal structures are well mineralized. There is no evidence of fracture or subluxation involving the cervical spine. Vertebral body height and alignment are maintained. There is straightening of the cervical lordosis. Anterior osteophytes are seen throughout. The odontoid process and lateral masses are intact. The atlantoaxial articulation is preserved noting mild productive degenerative change. The spinous processes appear intact. There is mild/moderate multilevel cervical spondylosis. Uncovertebral and facet arthropathy contribute to neural foraminal narrowing at several levels. Intervertebral discs: There is moderate disc space narrowing at C6-C7 and C7-T1. Mild narrowing is seen at the remaining cervical levels. Central canal: Posterior disc osteophyte complexes at C5-C6 and C6-C7 may contribute to mild acquired compromise of the central canal. Soft tissues: The prevertebral and paraspinous soft tissues are within normal limits. There is atherosclerotic calcification of the carotid bulbs. Calvarium: The visualized calvarium at the skull base appears intact. Brain parenchyma: Partially visualized brain parenchyma at the skull base is within normal limits. Sinuses and mastoids: The visualized paranasal sinuses are clear. The mastoid air cells are well pneumatized. Cerumen is noted in the external auditory canals. Lung apices: Clear as visualized. IMPRESSION: 1. There is no evidence of cervical spine fracture or subluxation. 2. Spondylotic change as above. ACT 112: Negative or not required by law. Electronically signed by: Jose Arreguin M.D. 12/25/2022 6:[address] 12/25/22 17:52 CT SCAN OF THE BRAIN WITHOUT IV CONTRAST CLINICAL HISTORY: Syncope. Fall. COMPARISON STUDY: CT of the brain dated 11/02/2021. TECHNIQUE: Unenhanced axial CT scan of the brain is performed from the vertex to the skull base. A dose lowering technique was utilized adhering to the principles of ALARA. CT DOSE: 5305.66 mGy.cm FINDINGS: Brain parenchyma: The brain parenchyma is normal in appearance. There is no hemorrhage, mass effect, or evidence of acute territorial ischemia by CT criteria. Mendoza-white matter differentiation is preserved. No extra-axial fluid collection is seen. Ventricles, sulci, cisterns: Normal in configuration. Intracranial vasculature: There is atherosclerotic calcification of the cavernous carotid arteries. Calvarium: Unremarkable. Sinuses and mastoids: The visualized paranasal sinuses are clear. The mastoid air cells are well pneumatized. Orbits: The bony orbits are grossly intact. IMPRESSION: No acute intracranial abnormality. ACT 112: Negative or not required by law. Electronically signed by: Jose Arreguin M.D. 12/25/2022 6:33 PM Medications Administered Norepinephrine Bitartrate (Levophed/D5w) 4 mg in 250 mls @ 0 mls/hr IV .Q0M [facility]; Protocol Stop: 01/24/23 19:59 Last Titration: 12/25/22 23:56 Dose: 0 mcg/kg/min, 0 mls/hr Documented By: Titration: 12/25/22 23:37 Dose: 0.05 mcg/kg/min, 17.7 mls/hr Documented By: Titration: 12/25/22 22:00 Dose: 0.07 mcg/kg/min, 24.8 mls/hr Documented By: Titration: 12/25/22 20:30 Dose: 0.09 mcg/kg/min, 31.9 mls/hr Documented By: Titration: 12/25/22 20:13 Dose: 0.07 mcg/kg/min, 24.8 mls/hr Documented By: Admin: 12/25/22 19:54 Dose: 0.05 mcg/kg/min, 17.7 mls/hr Documented By: ED Co-signed By: MARINA Amiodarone HCl/Dextrose (Nexterone / D5w) 360 mg in 200 mls @ 33.333 mls/hr IV ONE ONE; Protocol Stop: 12/26/22 02:36 Last Admin: 12/25/22 20:57 Dose: 1 mg/min, 33.3 mls/hr Documented By: RIN Co-signed By: ED Heparin Sodium/Dextrose (Heparin Sodium/Dextrose) 25,000 units in 500 mls @ 29 mls/hr IV .[id number] ASIA; Protocol Stop: 01/24/23 23:07 Last Admin: 12/25/22 23:43 Dose: 1,450 units/hr, 29 mls/hr Documented By: LETI Co-signed By: ENRIQUETA Multivitamins 10 ml/ Thiamine HCl 100 mg/ Folic Acid 1 mg/Sodium Chloride 1,011.2 mls @ 500 mls/hr IV .Q2H2M ONE Stop: 12/26/22 01:31 Last Admin: 12/25/22 23:46 Dose: 500 mls/hr Documented By: LETI Parenteral Electrolytes (Plasma-Lyte A Ph 7.4) 1,000 mls @ 125 mls/hr IV .Q8H [facility] Stop: 01/24/23 23:44 Last Admin: 12/25/22 23:56 Dose: 125 mls/hr Documented By: LETI Discontinued Medications Diphenhydramine HCl (Diphenhydramine 50 Mg/Ml Vial) 25 mg IV NOW STA Stop: 12/25/22 20:13 Last Admin: 12/25/22 20:22 Dose: 25 mg Documented By: ED Heparin Sodium (Porcine) (Heparin Sod (Porcine) 1000 Unit/Ml) 6,000 units IV NOW ONE Stop: 12/25/22 23:46 Last Admin: 12/25/22 23:46 Dose: 6,000 units Documented By: LETI Co-signed By: ENRIQUETA Heparin Sodium/Dextrose (Heparin Iv Adult Wt-Based Standard With Bolus Protocol) 1 each IV NOW STA; Protocol Stop: 12/25/22 23:09 Last Admin: 12/25/22 23:47 Dose: 1 each Documented By: LETI Hydrocortisone Sodium Succinate (Hydrocortisone Sod Succinate 100 Mg/2 Ml Vial) 100 mg IV NOW STA Stop: 12/25/22 17:57 Last Admin: 12/25/22 18:55 Dose: 100 mg Documented By: ED Sodium Chloride (Nss) 1,000 mls @ 999 mls/hr IV .Q1H1M ONE Stop: 12/25/22 18:50 Last Infusion: 12/25/22 19:29 Dose: 0 mls/hr Documented By: Admin: 12/25/22 18:43 Dose: 999 mls/hr Documented By: CORNELL Thiamine HCl 200 mg/ Sodium (Chloride) 52 mls @ 210 mls/hr IV NOW STA Stop: 12/25/22 18:04 Last Infusion: 12/25/22 19:20 Dose: 0 mls/hr Documented By: Admin: 12/25/22 18:55 Dose: 210 mls/hr Documented By: ED Sodium Chloride (Nss) 1,000 mls @ 999 mls/hr IV .Q1H1M ONE Stop: 12/25/22 18:57 Last Infusion: 12/25/22 19:29 Dose: 0 mls/hr Documented By: Admin: 12/25/22 18:43 Dose: 999 mls/hr Documented By: CORNELL Potassium Chloride (K Dany / Wtr) 10 meq in 100 mls @ 100 mls/hr IV Q1H ASIA Stop: 12/25/22 20:14 Last Infusion: 12/25/22 21:21 Dose: 0 mls/hr Documented By: Admin: 12/25/22 19:55 Dose: 100 mls/hr Documented By: Infusion: 12/25/22 19:54 Dose: 0 mls/hr Documented By: Admin: 12/25/22 18:58 Dose: 100 mls/hr Documented By: ED Sodium Chloride (Nss) 1,000 mls @ 999 mls/hr IV .Q1H1M ONE Stop: 12/25/22 20:21 Last Infusion: 12/25/22 20:21 Dose: 0 mls/hr Documented By: Admin: 12/25/22 19:29 Dose: 999 mls/hr Documented By: ED Piperacillin Sod/Tazobactam Sod (Zosyn) 4.5 gm in 100 mls @ 200 mls/hr IV NOW ONE Stop: 12/25/22 19:50 Last Infusion: 12/25/22 19:56 Dose: 0 mls/hr Documented By: Admin: 12/25/22 19:29 Dose: 200 mls/hr Documented By: ED Sodium Chloride (Nss) 1,000 mls @ 999 mls/hr IV .Q1H1M ONE Stop: 12/25/22 21:16 Last Infusion: 12/25/22 20:18 Dose: 0 mls/hr Documented By: Admin: 12/25/22 19:00 Dose: 999 mls/hr Documented By: ED Magnesium Sulfate/Dextrose (Magnesium Sulfate / D5w) 1 gm in 100 mls @ 200 mls/hr IV Q30M ASIA Stop: 12/25/22 21:30 Last Infusion: 12/25/22 21:58 Dose: 0 mls/hr Documented By: Admin: 12/25/22 21:18 Dose: 200 mls/hr Documented By: Infusion: 12/25/22 21:10 Dose: 0 mls/hr Documented By: Admin: 12/25/22 20:36 Dose: 200 mls/hr Documented By: DE Amiodarone HCl/Dextrose (Nexterone / D5w) 150 mg in 100 mls @ 600 mls/hr IV NOW STA Stop: 12/25/22 20:46 Last Infusion: 12/25/22 21:10 Dose: 0 mls/hr Documented By: RIN Co-signed By: KAHLIL Admin: 12/25/22 20:44 Dose: 600 mls/hr Documented By: ED Co-signed By: ALCON Potassium Chloride (K Dany / Wtr) 10 meq in 100 mls @ 100 mls/hr IV Q1H ASIA Stop: 12/26/22 01:07 Last Admin: 12/26/22 00:04 Dose: Not Given Documented By: LETI Ioversol (Optiray 320 500ml) 117 ml IV ONCE ONE Stop: 12/25/22 18:17 Last Admin: 12/25/22 18:17 Dose: 117 ml Documented By: GAEL Shieldsaneous (Stat Iv Infusion Titration Per Protocol) 1 each N/A NOW STA Stop: 12/25/22 19:51 Last Admin: 12/25/22 21:17 Dose: 1 each Documented By: RIN Ondansetron HCl (Ondansetron Inj 2 Mg/Ml 2 Ml Vial) 4 mg IV NOW STA Stop: 12/25/22 17:58 Last Admin: 12/25/22 18:43 Dose: 4 mg Documented By: MES Potassium Chloride (Potassium Chloride Crtab 20 Meq Tabcr) 40 meq PO NOW STA Stop: 12/25/22 23:09 Last Admin: 12/25/22 23:56 Dose: 40 meq Documented By: TMG ECG Additional Comments: 25-DEC-2022 17:48:39 Atrial fibrillation with rapid ventricular response Left axis deviation 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) Anteroseptal infarct (cited on or before 02-NOV-2021) Abnormal ECG When compared with ECG of 02-NOV-2021 11:39, Significant changes have occurred 25-DEC-2022 21:01:13 Atrial fibrillation with rapid ventricular response Left axis deviation Low voltage QRS 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) Cannot rule out Anteroseptal infarct (cited on or before 02-NOV-2021) Abnormal ECG When compared with ECG of 25-DEC-2022 17:48, (unconfirmed) ST no longer depressed in Inferior leads ST no longer depressed in Lateral leads Nonspecific T wave abnormality, improved in Lateral leads 25-DEC-2022 21:15:25 Sinus tachycardia Low voltage QRS 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
--- NOTE | 2022-12-25 21:55 | History & Physical Report ---
Date of Service December 25, 2022 Assessment & Plan (1) Rapid atrial fibrillation: Plan: 67-year-old male with past medical significant for hyperlipidemia, GERD, BPH, presents with chest pain ,dizziness and not feeling well and was in rapid A-fib in the ER and was hypotensive. Rapid atrial fibrillation Patient was hypotensive Hypotensive even after receiving fluids Currently started amiodarone drip Anticoagulation iv heparin Critical care and cardiology consulted appreciate critical care help Close monitor Hypotension Even after receiving fluids Currently on pressors Received dose of Zosyn in the ER Close monitoring in ICU Chest pain NSTEMI? Troponin initially was 20 .4 repeat is 160 could be from tachycardia We will follow serial enzymes and echo iv heparin cardio consulted We will monitor closely Questionable small PE in the left upper lobe pulmonary artery anticoagulation with iv heparin May need to follow with repeat CT scan Lower EXTR Doppler when stable Metabolic acidosis Etiology unclear Toxicology screen We will follow repeat labs Hypokalemia Replace Alcoholism Monitor for withdrawal with iv ativan prn Banana bag IV thiamine and IV folic acid Hyperlipidemia On statin GERD Protonix DVT prophylaxis IV heparin Disposition ICU Full code History of Present Illness Chief Complaint: Chest pain, dizziness Primary Care Provider: Layton Shelton MD 67-year-old male with past medical significant for hyperlipidemia, GERD, BPH, presents with chest pain ,dizziness and not feeling well and was in rapid A-fib in the ER and was hypotensive. Patient l drove from [place] today and did not eat or drink and after coming home he went to his mother's place to cut the grass and when he came back home he complained of chest pain and was feeling dizzy and was keep Falling down and was brought to the ER. He did not lose consciousness. In the ER was hypotensive and tachycardic which did not improve even after the fluid boluses and was started on pressors. ICU saw the patient and currently is on amiodarone drip. Patient still has chest pain in the lower part chest rating to shoulders 5-10 in severity. Denies any shortness of breath. No cough. No fevers. Currently no headaches. Vision is okay.No runny nose or sore throat. Patient states he had similar episode 1 year ago when he took cold medication DyQuil but says symptoms resolved by the time he came to the ER at that time. Past medical history. As mentioned above. Past surgical history. Colonoscopy. EGD. Knee arthroscopy. Inguinal hernia repair. Social history. . No smoking. Alcohol 8-10 beers daily. No drug use. Family history. Mother had breast cancer. Leukemia. Sister had breast cancer. Brother had heart attack. Allergies Allergy/AdvReac Type Severity Reaction Status Date / Time No Known Allergies Allergy Verified 08/22/19 14:45 Home Medications Medication Instructions Recorded Confirmed Type atorvastatin 20 mg tablet (Lipitor) 20 mg PO DAILY 08/22/19 08/22/19 History pantoprazole 40 mg tablet,delayed 40 mg PO DAILY 08/22/19 08/22/19 History release (Protonix) sucralfate 1 gram tablet (Carafate) 1 gm PO BID 08/22/19 08/22/19 History Past Med/Surg History Medical History Alcohol intoxication BPH with obstruction/lower urinary tract symptoms Chronic shoulder pain GERD (gastroesophageal reflux disease) HLD (hyperlipidemia) No significant past medical history Surgical History H/O hernia repair Family History Brother Heart disease Mother Breast cancer Leukemia Social History Smoking Status: Former smoker Tobacco Type: Smokeless Tobacco (Dip or Chew) Second Hand Exposure: No; Do You Dip or Chew Tobacco: No; Tobacco Cessation Education Requested by Patient: No Hx Alcohol Use: Yes Alcohol type: beer Hx Substance Use: No Preferred Language: [place] Communication Ability: Effective 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 ENT- oropharynx clear Neck- supple, no JVD Lungs- clear to auscultation , No wheezing or crackles. Heart- irregular rhythm; Tachycardia no murmur, no gallop. Abdomen- normal bowel sounds, soft, nontender, no distension Extremities- no pretibial edema, no erythema een. Neuro- alert, oriented x 3; EOMI; no facial palsy; no dysarthria; obeys commands, moves extremities Skin- warm & dry Results & Data Results & Data Vital Signs (Past 12 Hours) Vital Signs Temp Pulse Resp BP Pulse Ox O2 Del Method 12/25/22 21:30 121 H 24 103/76 95 Room Air 12/25/22 21:20 118 H 18 120/73 97 Room Air 12/25/22 21:10 122 H 17 83/67 L 97 Room Air 12/25/22 21:05 117 H 18 108/67 98 Room Air 12/25/22 21:00 163 H 20 85/66 L 97 Room Air 12/25/22 20:41 175 H 12/25/22 20:37 178 H 12/25/22 19:30 160 H 22 61/52 L 100 Room Air 12/25/22 19:26 156 H 19 71/47 L 100 Room Air 12/25/22 19:21 166 H 19 71/44 L 93 Room Air 12/25/22 19:17 163 H 22 72/38 L 94 Room Air 12/25/22 19:10 149 H 18 71/41 L 91 Room Air 12/25/22 19:05 147 H 20 73/39 L 93 Room Air 12/25/22 19:26 36.4 C L 12/25/22 19:00 151 H 22 64/51 L 12/25/22 18:56 150 H 22 85/37 L 12/25/22 18:54 144 H 19 76/57 L 12/25/22 18:51 137 H 19 68/42 L 96 Room Air 12/25/22 18:45 149 H 24 12/25/22 18:45 78/49 L 12/25/22 18:42 133 H 24 12/25/22 18:40 137 H 21 12/25/22 18:36 161 H 22 12/25/22 18:36 82/54 L 12/25/22 18:35 162 H 24 12/25/22 18:35 65/43 L 12/25/22 18:30 152 H 27 H 12/25/22 18:27 139 H 20 12/25/22 18:27 90/48 L 12/25/22 18:25 126 H 22 95 12/25/22 18:24 140 H 23 12/25/22 17:55 126 H 21 96 12/25/22 17:55 54/34 L 12/25/22 17:51 126 H 17 96 12/25/22 18:36 Room Air 12/25/22 18:36 93 Room Air 12/25/22 18:36 142 H 22 82/54 L 93 Room Air 12/25/22 17:52 125 H Diagnostic Findings Laboratory Results WBC 5.11 K/ul (4.8-10.8) 12/25/22 17:53 RBC 5.17 M/uL (4.70-6.10) 12/25/22 17:53 Hgb 16.6 g/dl (14.0-18.0) 12/25/22 17:53 POC Hgb 17.0 g/dl (14.0-18.0) 12/25/22 17:59 Hct 47.2 % (42.0-52.0) 12/25/22 17:53 POC Hct 50 % (42-52) 12/25/22 17:59 MCV 91.3 fL (80.0-100.0) 12/25/22 17:53 MCH 32.1 pg (25.0-34.0) 12/25/22 17:53 MCHC 35.2 g/dL (32.0-36.0) 12/25/22 17:53 RDW Std Deviation 41.7 fL (36.4-46.3) 12/25/22 17:53 RDW Coeff of [place] 12.4 % (11.5-14.5) 12/25/22 17:53 Plt Count 275 K/uL (130-400) 12/25/22 17:53 MPV 9.5 fL (9.4-12.4) 12/25/22 17:53 Immature Gran % (Auto) 0.6 % 12/25/22 17:53 Neut % (Auto) 65.3 % 12/25/22 17:53 Lymph % (Auto) 32.5 % 12/25/22 17:53 [place] % (Auto) 0.4 % 12/25/22 17:53 Eos % (Auto) 1.0 % 12/25/22 17:53 Baso % (Auto) 0.2 % 12/25/22 17:53 Neut # (Auto) 3.34 K/uL (1.40-6.50) 12/25/22 17:53 Lymph # (Auto) 1.66 K/uL (1.20-3.40) 12/25/22 17:53 [place] # (Auto) 0.02 K/uL (0.11-0.59) L 12/25/22 17:53 Eos # (Auto) 0.05 K/uL (0.00-0.50) 12/25/22 17:53 Baso # (Auto) 0.01 K/uL (0.00-0.20) 12/25/22 17:53 Immature Gran # (Auto) 0.03 K/uL (0.01-0.20) 12/25/22 17:53 PT 10.9 Seconds (9.0-12.0) 12/25/22 17:53 INR 1.0 (0.9-1.1) 12/25/22 17:53 APTT 21.4 Seconds (21.0-31.0) 12/25/22 17:53 PTT Ratio 0.8 12/25/22 17:53 D-Dimer 87776 ug/L FEU (0-500) H* 12/25/22 17:53 ABG pH 7.15 (7.35-7.45) L* 12/25/22 18:51 ABG pCO2 31 mmHg (35-46) L 12/25/22 18:51 ABG pO2 109 mmHg (80-95) H 12/25/22 18:51 ABG HCO3 11 mmol/L (19-24) L 12/25/22 18:51 ABG O2 Saturation 98.3 % (90-95) H 12/25/22 18:51 ABG Base Excess -16.8 mEq/L (-9-1.8) L 12/25/22 18:51 [place] Test Pos (Pos) 12/25/22 18:51 Oxygen Given ROOM AIR 12/25/22 18:51 POC Sodium 139 mmol/L (135-144) 12/25/22 17:59 Sodium 137 mmol/L (136-145) 12/25/22 17:53 POC Potassium 2.6 mmol/L (3.3-5.0) L 12/25/22 17:59 Potassium 2.7 mmol/L (3.5-5.1) L 12/25/22 17:53 POC Chloride 102 mmol/L (101-112) 12/25/22 17:59 Chloride 105 mmol/L (98-107) 12/25/22 17:53 Carbon Dioxide 20 mmol/L (21-32) L 12/25/22 17:53 POC Total CO2 20 mmol/L (24-31) L 12/25/22 17:59 Anion Gap 12 (3-11) H 12/25/22 17:53 POC Anion Gap 21.0 mmol/L (16-25) 12/25/22 17:59 POC BUN 10 mg/dl (7-18) 12/25/22 17:59 BUN 10 mg/dl (6-23) 12/25/22 17:53 Creatinine 1.17 mg/dl (0.6-1.4) 12/25/22 17:53 POC Creatinine 1.2 mg/dl (0.6-1.3) 12/25/22 17:59 Est Cr Clr Drug Dosing Not Reportable 12/25/22 17:53 Est GFR ( Amer) 73.8 ml/min 12/25/22 17:53 Est GFR (Non-Af Amer) 63.7 ml/min 12/25/22 17:53 BUN/Creatinine Ratio 8.5 (10-20) L 12/25/22 17:53 Glucose 190 mg/dl (70-99(Fasting)) H 12/25/22 17:53 POC Glucose (other) 184 mg/dl (70-99) H 12/25/22 17:59 Calcium 8.3 mg/dl (8.6-10.3) L 12/25/22 17:53 POC Ioniz Calcium [place] 1.03 mmol/l (1.12-1.32) L 12/25/22 17:59 Magnesium 2.0 mg/dl (1.7-2.4) 12/25/22 17:53 Total Bilirubin 0.5 mg/dl (0.2-1.0) 12/25/22 17:53 AST 17 U/L (13-39) 12/25/22 17:53 ALT 7 U/L (7-52) 12/25/22 17:53 Alkaline Phosphatase 71 U/L (34-104) 12/25/22 17:53 Troponin I High Sens 161.1 pg/ml (0-20) H* D 12/25/22 20:06 C-Reactive Protein < 0.50 mg/dl (0-0.5) 12/25/22 17:53 Total Protein 6.1 gm/dl (6.0-8.3) 12/25/22 17:53 Albumin 3.9 gm/dl (3.4-5.0) 12/25/22 17:53 Globulin 2.2 gm/dl (2.5-4.0) L 12/25/22 17:53 Albumin/Globulin Ratio 1.8 (0.9-2) 12/25/22 17:53 Lipase 29 U/L (11-82) 12/25/22 17:53 Procalcitonin < 0.05 ng/ml (0-0.5) 12/25/22 17:53 Random Cortisol 24.25 mcg/dl 12/25/22 17:53 Ethyl Alcohol mg/dL 104.9 mg/dl (<10.0) H 12/25/22 17:53 Blood Type O Positive 12/25/22 17:53 Antibody Screen NEGATIVE 12/25/22 17:53 Impressions Chest X-Ray 12/25/22 17:39 SINGLE VIEW CHEST CLINICAL HISTORY: Atypical chest pain. FINDINGS: An AP, portable, upright chest radiograph is compared to chest x-ray and chest CT dated 11/02/2021. The examination is degraded by portable technique and patient rotation. The heart is mildly enlarged. The pulmonary vasculature is noncongested. The lungs and pleural spaces are clear. No pneumothorax is seen. The skeletal structures are osteopenic. The bony thorax is grossly intact. IMPRESSION: No active disease in the chest. ACT 112: Negative or not required by law. Electronically signed by: Jose Arreguin M.D. 12/25/2022 6:02 PM Abdomen/Pelvis CT 12/25/22 17:50 CT SCAN OF THE ABDOMEN AND PELVIS WITH IV CONTRAST CLINICAL HISTORY: Generalized abdominal pain. Fall. Syncope. Hypotension. COMPARISON STUDY: Abdominal CT dated 07/07/2019. TECHNIQUE: Following the IV administration of 117 cc of Optiray 320, CT scan of the abdomen and pelvis is performed from the lung bases to the proximal femora. Images are reviewed in the axial, sagittal, and coronal planes. IV contrast was administered without complication. A dose lowering technique was utilized adhering to the principles of ALARA. FINDINGS: Lung bases: The heart is normal in size and without pericardial effusion. The lung bases are clear noting dependent scarring/atelectasis. There is a small hiatal hernia. Liver: The contrast-enhanced liver is normal in size, contour, and attenuation. There is no intrahepatic biliary ductal dilatation. The hepatic veins and portal veins were not opacified due to early phase of enhancement. Gallbladder: Unremarkable. Spleen: Normal in size and attenuation. Pancreas: Unremarkable. Adrenal glands: Unremarkable. Kidneys: The contrast enhanced kidneys are normal in size and without hydronephrosis. The kidneys enhance symmetrically. A 5.8 cm complex cyst with layering calcifications is again seen in the upper pole of the left kidney. This has modestly increased in size as compared to 2020. Abdominal vasculature: The abdominal aorta is normal in course and caliber noting moderate to advanced atherosclerotic calcification. No dissection is seen. The iliac vessels are patent. The superior mesenteric artery and celiac trunk are widely patent. Bowel: The small bowel loops and colon are fluid-filled. There is mild diffuse wall thickening seen throughout the:. No pneumatosis intestinalis or portal venous gas is identified. There is no bowel obstruction. The appendix is normal as visualized. Peritoneum: No intraperitoneal free air is identified. There is trace pelvic ascites. Lymphadenopathy: None. Pelvic viscera: The prostate gland is mildly heterogeneous. The bladder wall is thickened/trabeculated indicating chronic outlet obstruction. There is pericystic inflammation. Skeletal structures: The skeletal structures are osteopenic. There is mild lumbosacral spondylosis. No lytic or blastic lesions are seen. IMPRESSION: 1. The small bowel loops and colon are mildly distended and fluid-filled. Mild wall thickening is noted throughout the colon. Findings could be seen with a nonspecific enterocolitis. This could also be related to the reported history of hypertension. Clinical correlation will be essential. 2. There is no intraperitoneal free air, pneumatosis intestinalis, or portal venous gas. This even small bowel thickening is seen. 3. There is no bowel obstruction. Ileus is not excluded. 4. There is trace pelvic ascites. 5. The mesenteric arteries are widely patent. 6. There is pericystic inflammation. Correlated with clinical findings and urinalysis. 7. Additional findings as above. ACT 112: Negative or not required by law. Electronically signed by: Jose Arreguin M.D. 12/25/2022 7:04 PM Chest CTA 12/25/22 17:50 CT ANGIOGRAM OF THE CHEST COMBO CLINICAL HISTORY: Fall. Syncope. Hypotension. COMPARISON STUDY: Chest x-ray dated 12/25/2022. Chest CT dated 11/02/2021. TECHNIQUE: Before and following the IV administration of 117 cc of Optiray 320, CT angiogram of the chest was performed from the thoracic inlet to the upper abdomen utilizing the dissection protocol. Images are reviewed in the axial, sagittal, and coronal planes. 3-D MIPS images are created and assessed. IV contrast was administered without complication. A dose lowering technique was utilized adhering to the principles of ALARA. FINDINGS: Thyroid: Imaged portions of the thyroid gland are normal in size and attenuation. Thoracic aorta: No intramural hematoma is identified on the unenhanced series. The thoracic aorta is normal in caliber and demonstrates standard 3-vessel arch anatomy. No dissection is seen. The arch vessels are widely patent. Pulmonary vasculature: The pulmonary trunk is normal in caliber. There is a small linear filling defect within a segmental branch of the left upper lobe pulmonary artery seen on axial image #91. No additional filling defects are identified within the main, lobar, or segmental pulmonary arteries to indicate pulmonary embolus. Heart: The heart is top normal in size and without pericardial effusion. There are coronary artery calcifications. Esophagus: The esophageal wall appears diffusely thickened with mild surrounding infiltration. Lungs and pleural spaces: There is no airspace consolidation or pleural effusion. The trachea and central airways are clear. Scarring/atelectasis is noted at the lung bases. A calcific granuloma is seen in the left upper lobe. Mediastinum: There is no mediastinal lymphadenopathy. Gina: Clear. Axillae: There is no axillary lymphadenopathy. Upper abdomen: A 5.2 cm complex cyst is seen in the upper pole of the left kidney. Partially visualized upper abdominal viscera is otherwise grossly unremarkable. Skeletal structures: No lytic or blastic bony lesions are seen. IMPRESSION: 1. Unremarkable CT angiogram of the thoracic aorta. 2. There is a small and age-indeterminate linear filling defect suggesting a tiny pulmonary embolus within a branch of the left upper lobe pulmonary artery. This is linear in configuration and could be chronic or even potentially artifactual. A short-term (24-48 hour) follow-up with a dedicated pulmonary embolus CT angiogram could be considered for reevaluation. 3. No additional findings are suspicious for pulmonary embolus. 4. The soft tissue wall appears diffusely thickened and there is surrounding infiltration. Correlate clinically for evidence of esophagitis. If warranted this could be further assessed with endoscopy. 5. There is no airspace consolidation or pleural effusion. 6. Additional findings as above. ACT 112: Negative or not required by law. Electronically signed by: Jose Arreguin M.D. 12/25/2022 7:[address] 12/25/22 17:52 CT SCAN OF THE CERVICAL SPINE CLINICAL HISTORY: Syncope. Fall. COMPARISON STUDY: CT of the cervical spine dated 07/08/2014. TECHNIQUE: CT scan of the cervical spine is performed from the skull base to the upper thoracic spine. Images are reviewed in the axial, sagittal, and coronal planes. IV contrast was not administered for this examination. A dose lowering technique was utilized adhering to the principles of ALARA. FINDINGS: Skeletal structures: The skeletal structures are well mineralized. There is no evidence of fracture or subluxation involving the cervical spine. Vertebral body height and alignment are maintained. There is straightening of the cervical lordosis. Anterior osteophytes are seen throughout. The odontoid process and lateral masses are intact. The atlantoaxial articulation is preserved noting mild productive degenerative change. The spinous processes appear intact. There is mild/moderate multilevel cervical spondylosis. Uncovertebral and facet arthropathy contribute to neural foraminal narrowing at several levels. Intervertebral discs: There is moderate disc space narrowing at C6-C7 and C7-T1. Mild narrowing is seen at the remaining cervical levels. Central canal: Posterior disc osteophyte complexes at C5-C6 and C6-C7 may contribute to mild acquired compromise of the central canal. Soft tissues: The prevertebral and paraspinous soft tissues are within normal limits. There is atherosclerotic calcification of the carotid bulbs. Calvarium: The visualized calvarium at the skull base appears intact. Brain parenchyma: Partially visualized brain parenchyma at the skull base is within normal limits. Sinuses and mastoids: The visualized paranasal sinuses are clear. The mastoid air cells are well pneumatized. Cerumen is noted in the external auditory canals. Lung apices: Clear as visualized. IMPRESSION: 1. There is no evidence of cervical spine fracture or subluxation. 2. Spondylotic change as above. ACT 112: Negative or not required by law. Electronically signed by: Jose Arreguin M.D. 12/25/2022 6:[address] 12/25/22 17:52 CT SCAN OF THE BRAIN WITHOUT IV CONTRAST CLINICAL HISTORY: Syncope. Fall. COMPARISON STUDY: CT of the brain dated 11/02/2021. TECHNIQUE: Unenhanced axial CT scan of the brain is performed from the vertex to the skull base. A dose lowering technique was utilized adhering to the principles of ALARA. CT DOSE: 5305.66 mGy.cm FINDINGS: Brain parenchyma: The brain parenchyma is normal in appearance. There is no hemorrhage, mass effect, or evidence of acute territorial ischemia by CT criteria. Mendoza-white matter differentiation is preserved. No extra-axial fluid collection is seen. Ventricles, sulci, cisterns: Normal in configuration. Intracranial vasculature: There is atherosclerotic calcification of the cavernous carotid arteries. Calvarium: Unremarkable. Sinuses and mastoids: The visualized paranasal sinuses are clear. The mastoid air cells are well pneumatized. Orbits: The bony orbits are grossly intact. IMPRESSION: No acute intracranial abnormality. ACT 112: Negative or not required by law. Electronically signed by: Jose Arreguin M.D. 12/25/2022 6:33 PM ECG Additional Comments: ECG. Atrial fibrillation with rapid ventricular response rate of 134. Left axis deviation. ST depression in leads V5 V6 Code Status & VTE Plan VTE Prophylaxis Plan VTE Prophylaxis will be ordered: Yes
[2022-12-25 23:04] LABS: Appearance Urine Cloudy (Clear); Bacteria Urine Automated Negative (Negative); Bilirubin Urine Negative (Negative); Blood Urine 1+ (Negative); Color Urine Yellow; Epithelial Cell Urine Auto >30 /lpf (0-5); Glucose Urine UA Trace (Negative); Ketones Urine Negative (Negative); Leukocyte Esterase Urine Negative (Negative); Nitrite Urine Negative (Negative); Protein Urine 2+ (Negative); RBC Urine Automated 0-4 /hpf (0-4); Specific Gravity Urine > 1.045 (1.000-1.030); Urobilinogen Urine Negative (Negative)
[2022-12-25] MEDS ORDERED: POTASSIUM CHLORIDE CRTAB 20 MEQ TABCR PO STA (23:08)
[2022-12-25] MEDS ORDERED: Heparin IV Adult Wt-Based Standard WITH Bolus Protocol IV STA (23:08)
[2022-12-25] MEDS ORDERED: POTASSIUM CHLORIDE / WTR 10 MEQ/100 ML PLCT IV SCH (23:08)
[2022-12-25] MEDS ORDERED: LORazepam 2 MG/1 ML VIAL IV PRN ×3 (23:08)
[2022-12-25] MEDS ORDERED: Ativan IV Alcohol Withdrawal--Active Protocol IV PRN (23:08)
[2022-12-25] MEDS ORDERED: MULTI-VITAMIN INFUSION 10 ML, THIAMINE HCL 100 MG, FOLIC ACID 1 MG in SODIUM CHLORIDE 0... IV ONE (23:30)
[2022-12-25 23:42] LABS: Base Excess VBG -6.2 mEq/L; HCO3 VBG 20 mmol/L; PCO2 VBG 39 mmHg (38-50); PO2 VBG 38 mmHg; pH VBG 7.31 (7.36-7.41)
[2022-12-25] MEDS: HEPARIN SODIUM/DEXTROSE 25,000 UNITS/500 ML BAG IV SCH (23:43)
[2022-12-25] MEDS ORDERED: HEPARIN SOD (PORCINE) 1000 UNIT/ML IV ONE (23:45)
[2022-12-25 23:51] LABS: BUN Creatinine Ratio 9.9 (10-20); Calcium 7.1 mg/dl (8.6-10.3); Creatinine Clr Calc Pharmacy 58.7 ml/min; Est GFR (African American) 64.4 ml/min; Est GFR (Non-African American) 55.5 ml/min; Potassium 3.4 mmol/L (3.5-5.1)
[2022-12-25] MEDS ORDERED: STAT IV STA (23:55)
[2022-12-25] MEDS: PLASMA-LYTE A 1,000 ML IV SCH (23:56)
[2022-12-26] LABS: Troponin I High Sensitivity 369.5 pg/ml (0-20)
[2022-12-26] MEDS: CALCIUM GLUCONATE 10% 1,000 MG in SODIUM CHLOR 0.9% MINI-B 50 ML IV SCH ×2 (00:15→00:25)
[2022-12-26 00:19] LABS: Amphetamines+Metham, Urine Neg (Neg); Barbiturates, Urine Neg (Neg); Benzodiazepine, Urine Neg (Neg); Cocaine, Urine Neg (Neg); MDMA (Ecstacy), Urine Neg (Neg); Methadone, Urine Neg (Neg); Opiate, Urine Neg (Neg); Phencyclidine, Urine Neg (Neg)
[2022-12-26] MEDS ORDERED: SODIUM CHLORIDE 0.9% 1,000 ML IV SCH (02:00)
[2022-12-26] MEDS: AMIODARONE / D5W 360 MG/200 ML BAG IV SCH ×3 (02:54→13:31)
[2022-12-26 05:21] LABS: BUN Creatinine Ratio 9.7 (10-20); Calcium 7.2 mg/dl (8.6-10.3); Est GFR (African American) 56.9 ml/min; Est GFR (Non-African American) 49.1 ml/min; Potassium 3.7 mmol/L (3.5-5.1)
[2022-12-26 05:55] LABS: Basophils # (auto) 0.04 K/uL (0.00-0.20); Basophils % (auto) 0.2 %; Eosinophils # (auto) 0.01 K/uL (0.00-0.50); Eosinophils % (auto) 0.1 %; Hemoglobin 12.1 g/dl (14.0-18.0); Immature Granulocytes % (auto) 0.6 %; Lymphocytes # (auto) 0.19 K/uL (1.20-3.40); Lymphocytes % (auto) 1.1 %; Mean Corpuscular Hgb Conc 33.6 g/dL (32.0-36.0); Mean Corpuscular Volume 92.3 fL (80.0-100.0); Mean Platelet Volume 9.8 fL (9.4-12.4); Monocytes # (auto) 0.64 K/uL (0.11-0.59); Monocytes % (auto) 3.8 %; Neutrophils # (auto) 15.79 K/uL (1.40-6.50); Neutrophils % (auto) 94.2 %; Platelet Count 190 K/uL (130-400); RDW Coefficient of Variation 12.9 % (11.5-14.5); RDW Standard Deviation 43.2 fL (36.4-46.3); White Blood Count 16.77 K/ul (4.8-10.8)
--- NOTE | 2022-12-26 06:44 | Critical Care Progress Note ---
Date of Service December 26, 2022 Assessment & Plan (1) Atrial fibrillation with rapid ventricular response: (2) Acute hypotension: (3) Elevated troponin: (4) Abnormal chest CT: (5) Electrolyte abnormality: (6) Metabolic acidosis: (7) GERD (gastroesophageal reflux disease): (8) HLD (hyperlipidemia): Plan Reason Critically Ill: 67 YOM presents tachycardic in afib, hypotensive and with chest pressure. Received multiple fluid boluses and initiation of vasopressors in setting of metabolic acidosis and hypovolemia. Neuro - Chronic shoulder pain, fall, ETOH dependance/misuse CAM ICU: Negative Shoulder pain -Recently prescribed diclofenac for shoulder discomfort Alcohol dependency - AWWS scoring and coverage with Ativan - Continue Thiamine Cardiac - Afib, Shock, Elevated HsCTNI, HLD - Presents in PAF which appears as new onset- without STEMI on ECG- amiodarone initiated- resulting in rate and rythm control - CHADSvasc2- 0 with current information -Cardiology consultation reviewed -Nearly off vasoactive medication -Optimize electrolytes mag greater than 2K greater than 4 - Elevated HScTNI - NStemi vs demand- as he did present with chest pressure- previously had favorable EST in 2020 - Initiate heparin infusion for multiple purposes- afib, poss subacute PE, and elevated troponin - Continue statin Respiratory - Abnormal CTA of chest - Subacute PE vs. artifact- Heparin infusion as above - consider follow up scan for determination of PE -Given history of recent prolonged travel will obtain venous duplex GI - GERD - no acute needs, continue PPI RENAL/LYTES - Multiple electrolyte derangement, metabolic acidosis, elevated lactate: Improving - electrolyte protocol - thimaine daily - BPH - bladder scan prn - follow urine output ENDO - Elevated serum glucose without diagnosis of DM - no acute needs, consider checking HGBA1c in am for cardiac risk factor HEME - No acute needs ID - No suspicion at this time of infectious etiology or sepsis - WBC normal, PCT negative, Urine negative, no pulmonary process LINES/IV ACCESS - PIV, CVL -Discontinue CVC, minimal vasoactive requirement could infuse through peripheral line if needed DVT PROPHYLAXIS - SCDS, Heparin infusion DISPO: ICU while on vasopressors I have personally spent 45 minutes of critical care time in the direct management of this patient. This is a life/limb threatening event. This includes time spent evaluating patient, direct bedside care, chart review, placing orders, interpretation of diagnostic studies, discussion with consultants, patient, and family members, as well as other required patient management activities. This time is exclusive of all separately billable procedures, and teaching time and separate from and in addition to any other critical care service time. Admission and Anticipated Discharge Date Admission Date: December 25, 2022 Results & Data Results & Data Vital Signs (Past 12 Hours) Vital Signs Temp Pulse Resp BP Pulse Ox O2 Del Method O2 Del Method 12/26/22 05:45 87 24 112/62 97 12/26/22 05:30 85 14 97/54 L 96 12/26/22 05:15 84 21 106/58 L 97 12/26/22 05:00 85 23 99/54 L 96 12/26/22 04:45 86 23 92/51 L 98 12/26/22 04:30 87 22 101/60 97 12/26/22 04:22 87 21 101/56 L 97 12/26/22 04:15 86 13 87/44 L 97 12/26/22 04:00 89 22 115/53 L 98 12/26/22 03:45 93 H 17 104/64 97 12/26/22 03:30 96 H 22 115/58 L 98 12/26/22 03:15 88 15 106/61 97 12/26/22 03:00 90 21 112/59 L 97 12/26/22 02:45 89 19 97 12/26/22 02:31 87 9 L 90/53 L 96 12/26/22 02:30 87 22 80/43 L 98 12/26/22 02:15 87 22 100/70 98 12/26/22 02:00 87 22 99/63 L 98 12/26/22 01:45 89 19 114/68 99 12/26/22 01:30 88 20 108/67 99 12/26/22 01:15 89 19 96/62 L 99 12/26/22 01:00 88 24 101/66 98 12/26/22 00:45 89 19 105/66 99 12/26/22 00:30 89 14 106/66 95 12/26/22 00:17 87 19 64/41 L 97 12/26/22 00:16 87 25 H 54/40 L 12/26/22 00:15 87 18 12/26/22 02:57 36.9 C 12/25/22 23:08 Room Air 12/26/22 00:20 107 H 12/26/22 00:00 103 H 19 12/25/22 23:54 123/84 12/25/22 23:54 107 H 22 98 12/25/22 23:45 108 H 18 96 12/25/22 23:40 106 H 18 98 12/25/22 23:35 37.2 C 12/25/22 22:20 122 H 15 96/67 L 99 Room Air 12/25/22 22:10 122 H 18 97 Room Air 12/25/22 22:00 127 H 17 117/69 97 Room Air 12/25/22 21:50 124 H 17 103/75 96 Room Air 12/25/22 21:40 122 H 16 115/71 96 Room Air 12/25/22 21:30 121 H 24 103/76 95 Room Air 12/25/22 21:20 118 H 18 120/73 97 Room Air 12/25/22 21:10 122 H 17 83/67 L 97 Room Air 12/25/22 21:05 117 H 18 108/67 98 Room Air 12/25/22 21:00 163 H 20 85/66 L 97 Room Air 12/25/22 20:41 175 H 12/25/22 20:37 178 H 12/25/22 19:30 160 H 22 61/52 L 100 Room Air 12/25/22 19:26 156 H 19 71/47 L 100 Room Air 12/25/22 19:21 166 H 19 71/44 L 93 Room Air 12/25/22 19:17 163 H 22 72/38 L 94 Room Air 12/25/22 19:10 149 H 18 71/41 L 91 Room Air 12/25/22 19:05 147 H 20 73/39 L 93 Room Air 12/25/22 19:26 36.4 C L 12/25/22 19:00 151 H 22 64/51 L 12/25/22 18:56 150 H 22 85/37 L 12/25/22 18:54 144 H 19 76/57 L 12/25/22 18:51 137 H 19 68/42 L 96 Room Air 12/25/22 18:45 149 H 24 12/25/22 18:45 78/49 L Coding Level of Care Code 46730 CRITICAL CARE 1ST 30-74M Diagnoses Atrial fibrillation with rapid ventricular response I48.91 Acute hypotension I95.9 Elevated troponin R79.[address] R93.89 Electrolyte abnormality E87.8 Metabolic acidosis E87.20 GERD (gastroesophageal reflux disease) K21.9 HLD (hyperlipidemia) E78.5
[2022-12-26 08:21] LABS: Albumin Level 2.8 gm/dl (3.4-5.0); Bilirubin,Total 0.2 mg/dl (0.2-1.0); Magnesium 1.6 mg/dl (1.7-2.4); Phosphorus 1.6 mg/dl (2.5-4.9); Total Protein 4.3 gm/dl (6.0-8.3)
[2022-12-26 08:27] LABS: Partial Thromboplastin Ratio > 4.9
[2022-12-26 08:49] LABS: Partial Thromboplastin Time > 139.0 Seconds (21.0-31.0)
[2022-12-26] MEDS: ICU Protocol for HYPERglycemia SCH ×4 (09:03→20:41)
[2022-12-26] MEDS: PLASMA-LYTE A 1,000 ML IV SCH ×2 (09:03→17:46)
[2022-12-26] MEDS: FOLIC ACID 1 MG in SYRINGE 9.8 ML IV SCH (09:03)
[2022-12-26] MEDS: THIAMINE HCL 100 MG in SYRINGE 9 ML IV SCH (09:03)
[2022-12-26] MEDS ORDERED: ACETAMINOPHEN 325 MG TAB PO PRN (09:49)
[2022-12-26 10:07] LABS: Partial Thromboplastin Ratio > 4.9
--- NOTE | 2022-12-26 10:07 | Cardiology Consultation ---
Date of Consultation December 26, 2022 Assessment & Plan (1) Atrial fibrillation with rapid ventricular response: (2) Acute hypotension: Plan Patient presented with symptoms of chest heaviness, multiple syncopal episodes, and was found to be in atrial fibrillation with rapid ventricular response. Although the EKG tracings from overnight revealed rates in the 120s and 140s, per review of his telemetry, his ventricular rate was well in excess of 160 bpm for quite some time prior to converting while on an amiodarone infusion last evening at 2103. Per review of his chart however his hypotension did persist to some degree even after sinus rhythm was restored. Although his blood pressure listed in the computer from 910 this morning was 73/48, at the time my assessment, he was feeling well and his blood pressure included a systolic measurement in the 120s to 130s. He had been on norepinephrine overnight, this had been weaned and at the time my assessment was at a relatively low dose of 0.02 mcg/kg/min. Also on IV fluids at 125 mL/h, heparin infusion, and amiodarone infusion. The patient's troponin had initially been 24 and trended up to 369 and then down to 286.7 pg/ml which is a relatively mild elevation given his degree of hypotension and tachycardia. The patient endorses longstanding alcohol use that has not changed recently. His electrolytes are appropriately being replaced. He does not have any grossly infectious symptoms. At present I recommend weaning norepinephrine as tolerated, continue IV amiodarone and IV heparin. He has had an echocardiogram that reveals normal left ventricular wall motion, normal right ventricular chamber size and systolic function, LVEF in the range of 55 to 60% without significant valvular abnormalities, and no pericardial effusion. History of Present Illness Attending Physician: Rubio Sanders MD History of Present Illness Paul Tom is a 67 year old male seen in cardiology consultation per the request of Dr Maher for the evaluation of chest discomfort, atrial fibrillation with rapid ventricular response, and hypotension. Patient describes that he was in his normal state of health yesterday, 12/25/2022 and drove from [place] back to [place]. Shortly after arriving home he felt a sensation of warmth, heavy perspiration, followed by chest heaviness and abdominal discomfort. His spouse had observed him to have had multiple episodes of having lost postural tone. Upon arrival to the emergency room he was found to be in atrial fibrillation with rapid ventricular response and was found to be hypotensive. His initial blood pressure measurements as recorded in his vital signs include a blood pressure of 54/34 recorded on 12/25/2022 and 90/48 at 1827. Blood pressure was 65/43 on 12/25/2022 at 1835. He received IV norepinephrine. There was concern of him having allergic reaction with the noted redness of his skin prompting him to have a dose of diphenhydramine and IV hydrdocortisone. An arterial blood gas performed 12/25/2022 at 1851 revealed metabolic acidosis with pH of 7.15, PCO2 31, O2 of 109, bicarbonate of 11. I received a page and had subsequently discussed the case by telephone with Neville Hernandez PA-C of the critical care service and due to ongoing concerns of atrial fibrillation with rapid ventricular response, chest tightness, and profound hypotension recommended a trial of IV amiodarone. Per review of telemetry, patient converted back to sinus rhythm while on IV amiodarone overnight last night at 2103 and has been in sinus rhythm ever since. An EKG performed at just after 6 AM this morning revealed ectopic atrial rhythm in the 60s without repolarization changes. A follow-up EKG performed at just after 7 AM revealed normal P wave axis, normal sinus rhythm in the 70s with no repolarization changes to suggest ischemia. At the time my conversation with the patient he was comfortable. He noted a vague discomfort in his right axilla that radiated to his back which she has had before. He does not recall having subjective symptoms of feeling like his heart rate was elevated last evening on presentation and states that the symptoms that he had last evening were different than cardiac symptoms that he had felt in the past. The patient has followed with cardiology as an outpatient, most recent visit had been with Dr. Maurilio Still of our practice in May,. Prior work-up for chest discomfort took place in 2020 as an outpatient. Patient underwent an exercise stress echocardiogram completed in just over 8 minutes on a Ricardo protocol, test was suboptimal due to failure to reach target heart rate. He went on to have a Lexiscan nuclear stress test later that month, September, which was negative for ischemia, normal LVEF. Family History The patient's father in his 80s, patient describes his father had history of myocardial infarction with no past intervention or bypass surgery. 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 Allergies Allergy/AdvReac Type Severity Reaction Status Date / Time No Known Allergies Allergy Verified 08/22/19 14:45 Home Medications Medication Instructions Recorded Confirmed Type atorvastatin 20 mg tablet (Lipitor) 20 mg PO DAILY 08/22/19 08/22/19 History pantoprazole 40 mg tablet,delayed 40 mg PO DAILY 08/22/19 08/22/19 History release (Protonix) sucralfate 1 gram tablet (Carafate) 1 gm PO BID 08/22/19 08/22/19 History Patient History Medical History Alcohol intoxication BPH with obstruction/lower urinary tract symptoms Chronic shoulder pain GERD (gastroesophageal reflux disease) HLD (hyperlipidemia) No significant past medical history Surgical History H/O hernia repair Family History Brother Heart disease Mother Breast cancer Leukemia Social History Smoking Status: Former smoker Tobacco Type: Smokeless Tobacco (Dip or Chew) Second Hand Exposure: No; Do You Dip or Chew Tobacco: No; Tobacco Cessation Education Requested by Patient: No Hx Alcohol Use: Yes Alcohol type: beer Hx Substance Use: No Preferred Language: Gibraltarian Communication Ability: Effective Wet Process 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 Required: No Beliefs That Will Affect Care: None marital status: Current Living Situation: Spouse Other Information That Helps Us Care for You: No Feels Safe at Home: Yes Safety Concerns: Feels Safe At This Time Assistive Devices: Glasses Review of Systems Review of Systems: All systems reviewed & are unremarkable except as noted in HPI & below Physical Exam Constitutional: WD/WN, vitals as above Respiratory: normal respiratory effort, lungs clear to auscultation Cardiovascular: RRR, no murmur, no edema Chest (Breasts): normal inspection/palpation of breasts Gastrointestinal (Abdomen): normal bowel sounds, soft, nontender, no hepatosplenomegaly Neurologic: PERRL, EOMI, accommodation nl, no face palsy, no dysarthria Results & Data Vital Signs (Past 12 Hours) Vital Signs Temp Pulse Resp BP Pulse Ox O2 Del Method O2 Del Method 12/26/22 09:00 81 20 98 12/26/22 09:00 73/48 L 12/26/22 08:45 98/60 L 12/26/22 08:45 84 22 96 Room Air 12/26/22 08:16 97/59 L 12/26/22 08:16 86 27 H 96 12/26/22 08:00 85 23 98 12/26/22 08:00 99/59 L 12/26/22 09:10 36.1 C L 12/26/22 07:45 93/57 L 12/26/22 07:45 85 23 97 12/26/22 07:30 99/63 L 12/26/22 07:30 85 21 96 12/26/22 07:15 84 96 Room Air 12/26/22 07:15 102/58 L 12/26/22 07:00 86 23 97 12/26/22 07:00 101/62 12/26/22 05:45 87 24 112/62 97 12/26/22 05:30 85 14 97/54 L 96 12/26/22 05:15 84 21 106/58 L 97 12/26/22 05:00 85 23 99/54 L 96 12/26/22 04:45 86 23 92/51 L 98 12/26/22 04:30 87 22 101/60 97 12/26/22 04:22 87 21 101/56 L 97 12/26/22 04:15 86 13 87/44 L 97 12/26/22 04:00 89 22 115/53 L 98 12/26/22 03:45 93 H 17 104/64 97 12/26/22 03:30 96 H 22 115/58 L 98 12/26/22 03:15 88 15 106/61 97 12/26/22 03:00 90 21 112/59 L 97 12/26/22 02:45 89 19 97 12/26/22 02:31 87 9 L 90/53 L 96 12/26/22 02:30 87 22 80/43 L 98 12/26/22 02:15 87 22 100/70 98 12/26/22 02:00 87 22 99/63 L 98 12/26/22 01:45 89 19 114/68 99 12/26/22 01:30 88 20 108/67 99 12/26/22 01:15 89 19 96/62 L 99 12/26/22 01:00 88 24 101/66 98 12/26/22 00:45 89 19 105/66 99 12/26/22 00:30 89 14 106/66 95 12/26/22 00:17 87 19 64/41 L 97 12/26/22 00:16 87 25 H 54/40 L 12/26/22 00:15 87 18 12/26/22 02:57 36.9 C 12/25/22 23:08 Room Air 12/26/22 00:20 107 H 12/26/22 00:00 103 H 19 12/25/22 23:54 123/84 12/25/22 23:54 107 H 22 98 12/25/22 23:45 108 H 18 96 12/25/22 23:40 106 H 18 98 12/25/22 23:35 37.2 C 12/25/22 22:20 122 H 15 96/67 L 99 Room Air 12/25/22 22:10 122 H 18 97 Room Air 12/25/22 22:00 127 H 17 117/69 97 Room Air Laboratory Results Cardiac Enzymes 12/25/22 12/25/22 12/25/22 Range/Units 17:53 20:06 23:15 AST 17 (13-39) U/L Troponin I High Sens 24.8 H 161.1 H* D 369.5 H* D (0-20) pg/ml 12/26/22 12/26/22 Range/Units 04:52 04:52 AST 27 (13-39) U/L Troponin I High Sens 286.7 H* D (0-20) pg/ml Coagulation 12/25/22 12/26/22 Range/Units 17:53 07:01 PT 10.9 (9.0-12.0) Seconds APTT 21.4 > 139.0 H* (21.0-31.0) Seconds CBC 12/25/22 12/26/22 Range/Units 17:53 04:52 WBC 5.11 16.77 H D (4.8-10.8) K/ul RBC 5.17 3.90 L (4.70-6.10) M/uL Hgb 16.6 12.1 L D (14.0-18.0) g/dl Hct 47.2 36.0 L (42.0-52.0) % Plt Count 275 190 (130-400) K/uL Neut # (Auto) 3.34 15.79 H (1.40-6.50) K/uL Lymph # (Auto) 1.66 0.19 L (1.20-3.40) K/uL [place] # (Auto) 0.02 L 0.64 H (0.11-0.59) K/uL Eos # (Auto) 0.05 0.01 (0.00-0.50) K/uL Baso # (Auto) 0.01 0.04 (0.00-0.20) K/uL Comprehensive Metabolic Panel 12/25/22 12/25/22 12/26/22 Range/Units 17:53 23:15 04:52 Sodium 137 136 (136-145) mmol/L Potassium 2.7 L 3.4 L D (3.5-5.1) mmol/L Chloride 105 109 H (98-107) mmol/L Carbon Dioxide 20 L 20 L (21-32) mmol/L BUN 10 13 (6-23) mg/dl Creatinine 1.17 1.31 (0.6-1.4) mg/dl Glucose 190 H 168 H (70-99(Fasting)) mg/dl Calcium 8.3 L 7.1 L (8.6-10.3) mg/dl Direct Bilirubin 0.0 (0-0.2) mg/dl AST 17 27 (13-39) U/L ALT 7 9 (7-52) U/L Alkaline Phosphatase 71 36 (34-104) U/L Total Protein 6.1 4.3 L D (6.0-8.3) gm/dl Albumin 3.9 2.8 L (3.4-5.0) gm/dl 12/26/22 Range/Units 04:52 Sodium 135 L (136-145) mmol/L Potassium 3.7 (3.5-5.1) mmol/L Chloride 110 H (98-107) mmol/L Carbon Dioxide 19 L (21-32) mmol/L BUN 14 (6-23) mg/dl Creatinine 1.45 H (0.6-1.4) mg/dl Glucose 168 H (70-99(Fasting)) mg/dl Calcium 7.2 L (8.6-10.3) mg/dl Direct Bilirubin (0-0.2) mg/dl AST (13-39) U/L ALT (7-52) U/L Alkaline Phosphatase (34-104) U/L Total Protein (6.0-8.3) gm/dl Albumin (3.4-5.0) gm/dl
[2022-12-26 10:21] LABS: Partial Thromboplastin Time > 139.0 Seconds (21.0-31.0)
[2022-12-26 12:06] LABS: Adenovirus F 40/41 PCR Not Detected (NotDetected); Astrovirus PCR Not Detected (NotDetected); Campylobacter PCR Not Detected (NotDetected); Cryptosporidium PCR Not Detected (NotDetected); Cyclospora cayetanensis PCR Not Detected (NotDetected); Entamoeba histolytica PCR Not Detected (NotDetected); Enteroaggregative E.coli(EAEC) Not Detected (NotDetected); Enteropathogenic E.coli (EPEC) Not Detected (NotDetected); Enterotoxigenic E.coli (ETEC) Not Detected (NotDetected); Giardia lamblia PCR Not Detected (NotDetected); Norovirus GI/GII PCR Not Detected (NotDetected); Plesiomonas shigelloides PCR Not Detected (NotDetected); Rotavirus A PCR Not Detected (NotDetected); Salmonella PCR Not Detected (NotDetected); Sapovirus PCR Not Detected (NotDetected); Shiga-like Toxin E.coli (STEC) Not Detected (NotDetected); Shigella/Enteroinvasive E.coli Not Detected (NotDetected); Vibrio cholerae PCR Not Detected (NotDetected); Vibrio species PCR Not Detected (NotDetected); Yersinia enterocolitica PCR Not Detected (NotDetected)
[2022-12-26 12:34] LABS: Partial Thromboplastin Ratio 2.2
[2022-12-26] MEDS: NOREPINEPHRINE/D5W 4 MG/250 ML PLCT IV SCH (13:30)
--- NOTE | 2022-12-26 15:25 | Hospitalist Progress Note ---
Date of Service December 26, 2022 Assessment & Plan (1) Rapid atrial fibrillation: Plan: 67-year-old male with past medical significant for hyperlipidemia, GERD, BPH, presents with chest pain ,dizziness and not feeling well and was in rapid A-fib in the ER and was hypotensive. Atrial fibrillation with rapid ventricular response with hypotension -On amiodarone drip with conversion to normal sinus rhythm last night. Remains on Amio drip and heparin drip. Further management per cardiology and stock associate. Echo unremarkable. Elevated troponin is probably demand ischemia related to A-fib with RVR. Hypotension-requiring pressor support, weaning down on Levophed per stock associate Alcohol abuse-currently not in withdrawal. Alcohol elevated 104. He drinks 11 cans of beer every day, last drink was yesterday afternoon; does not drink hard liquor. Urine tox screen negative. Memory Care Director managing with alcohol withdrawal protocol with as needed Ativan. Consider tapering dose of medication given his risk for withdrawal-defer to stock associate, communicated to RN at bedside. Possible PE versus artifact on CT-elevated D-dimer, ultrasound lower extremity pending, now on IV heparin. Might need repeat CT PE for confirmation. Diarrhea-GI bio fire and C. difficile negative. Continue supportive management. Leukocytosis- ?Reactive. Hypokalemia-resolved Hypocalcemia, hypophosphatemia and hypomagnesemia-replete per ICU protocol DVT prophylaxis-heparin drip Disposition-remains in ICU for IV amiodarone and Levophed. Updated at bedside. (2) Electrolyte abnormality: (3) Abnormal chest CT: (4) Atrial fibrillation with rapid ventricular response: Admission and Anticipated Discharge Date Admission Date: December 25, 2022 Subjective Patient was seen and examined bedside. He feels better. He has residual mild chest discomfort. He drinks beers every day, last was yesterday. No fever, chills, shortness of breath, nausea or vomiting. Having multiple loose bowel movements. Review of Systems Review of Systems: All systems reviewed & are unremarkable except as noted in Subjective Physical Exam Physical Exam: General: Lying comfortably in bed, not in distress, on room air HEENT: EOMI, JASE, MMM Chest: Clear breath sounds bilaterally, no wheezes or crackles CVS: Regular rate and rhythm, normal heart sounds, no murmur Abdomen: Soft, non tender, not distended, normal bowel sounds Neuro: Awake, alert, oriented, conversing well, non focal Extremities: No cyanosis, clubbing or edema Results & Data Results & Data Vital Signs (Past 12 Hours) Vital Signs Temp Pulse Resp BP Pulse Ox O2 Del Method 12/26/22 13:00 85 25 H 97 12/26/22 13:00 104/57 L 12/26/22 12:45 83 26 H 96 Room Air 12/26/22 12:45 120/65 12/26/22 12:30 80 23 97 12/26/22 12:30 114/58 L 12/26/22 12:15 83 25 H 97 12/26/22 12:15 104/59 L 12/26/22 12:00 82 24 96 12/26/22 12:00 102/61 12/26/22 11:45 78 21 96 12/26/22 08:00 Room Air 12/26/22 11:30 81 97 12/26/22 11:30 94/55 L 12/26/22 11:00 86 21 97 12/26/22 11:00 108/59 L 12/26/22 10:45 87 21 97 Room Air 12/26/22 10:45 95/63 L 12/26/22 08:00 86 12/26/22 10:30 88 26 H 98 12/26/22 10:30 108/64 12/26/22 10:16 102/58 L 12/26/22 10:16 87 29 H 94 12/26/22 10:00 88 24 97 12/26/22 09:45 106/63 12/26/22 09:45 86 26 H 98 12/26/22 09:30 138/78 12/26/22 09:30 90 30 H 97 12/26/22 09:00 81 20 98 12/26/22 09:00 73/48 L 12/26/22 08:45 98/60 L 12/26/22 08:45 84 22 96 Room Air 12/26/22 08:16 97/59 L 12/26/22 08:16 86 27 H 96 12/26/22 08:00 85 23 98 12/26/22 08:00 99/59 L 12/26/22 09:10 36.1 C L 12/26/22 07:45 93/57 L 12/26/22 07:45 85 23 97 12/26/22 07:30 99/63 L 12/26/22 07:30 85 21 96 12/26/22 07:15 84 96 Room Air 12/26/22 07:15 102/58 L 12/26/22 07:00 86 23 97 12/26/22 07:00 101/62 12/26/22 05:45 87 24 112/62 97 12/26/22 05:30 85 14 97/54 L 96 12/26/22 05:15 84 21 106/58 L 97 12/26/22 05:00 85 23 99/54 L 96 12/26/22 04:45 86 23 92/51 L 98 12/26/22 04:30 87 22 101/60 97 12/26/22 04:22 87 21 101/56 L 97 12/26/22 04:15 86 13 87/44 L 97 12/26/22 04:00 89 22 115/53 L 98 12/26/22 03:45 93 H 17 104/64 97 12/26/22 03:30 96 H 22 115/58 L 98 Laboratory Results Short CBC 12/25/22 12/26/22 Range/Units 17:53 04:52 WBC 5.11 16.77 H D (4.8-10.8) K/ul Hgb 16.6 12.1 L D (14.0-18.0) g/dl Hct 47.2 36.0 L (42.0-52.0) % Plt Count 275 190 (130-400) K/uL BMP 12/25/22 12/25/22 12/26/22 17:53 23:15 04:52 Sodium 137 136 135 L Potassium 2.7 L 3.4 L D 3.7 Chloride 105 109 H 110 H Carbon Dioxide 20 L 20 L 19 L BUN 10 13 14 Creatinine 1.17 1.31 1.45 H Glucose 190 H 168 H 168 H Calcium 8.3 L 7.1 L 7.2 L Liver Function 12/25/22 12/26/22 Range/Units 17:53 04:52 Total Bilirubin 0.5 0.2 (0.2-1.0) mg/dl Direct Bilirubin 0.0 (0-0.2) mg/dl AST 17 27 (13-39) U/L ALT 7 9 (7-52) U/L Alkaline Phosphatase 71 36 (34-104) U/L Albumin 3.9 2.8 L (3.4-5.0) gm/dl Urine 12/25/22 Range/Units Unknown Urine Color Yellow Urine Appearance Cloudy A (Clear) Urine pH 5.0 (4.5-7.5) Ur Specific [place] > 1.045 H (1.000-1.030) Urine Protein 2+ H (Negative) Urine Glucose (UA) Trace H (Negative)
--- NOTE | 2022-12-26 18:20 | Ultrasound Report ---
US venous doppler LE BI CLINICAL HISTORY: r/o dvt TECHNIQUE: Bilateral lower extremity real-time compression venous ultrasound with Color Doppler imagi ng. Utilizing real-time ultrasonic imaging multiple real time high-resolution ultrasonic images with compression and noncompression maneuvers of the deep venous system in addition to color doppler imagi ng were performed from the common femoral vein through the proximal calf veins. COMPARISON: None available at the time of this dictation. FINDINGS/IMPRESSION: Currently there is normal compressibility of the deep venous system from the common femoral vein thro ugh the proximal calf veins. Evaluation of the right groin is slightly limited by overlying bandages . ACT 112: Negative or not required by law. Electronically signed by: Tobias Presley M.D. 12/26/2022 6:19 PM
[2022-12-26 19:02] LABS: BUN Creatinine Ratio 14.2 (10-20); Calcium 7.4 mg/dl (8.6-10.3); Creatinine Clr Calc Pharmacy 64.2 ml/min; Est GFR (African American) 71.6 ml/min; Est GFR (Non-African American) 61.8 ml/min; Magnesium 1.6 mg/dl (1.7-2.4); Phosphorus 3.2 mg/dl (2.5-4.9); Potassium 4.3 mmol/L (3.5-5.1)
[2022-12-26 19:26] LABS: Partial Thromboplastin Ratio 2.7
[2022-12-26 19:28] LABS: Partial Thromboplastin Time 75.3 Seconds (21.0-31.0)
[2022-12-26] MEDS ORDERED: LOPERAMIDE HCL 2 MG CAP PO PRN (20:36)
[2022-12-26] MEDS ORDERED: LOPERAMIDE HCL 2 MG CAP PO STA (20:36)
[2022-12-26] MEDS: MAGNESIUM SULFATE / D5W 1 GM/100 ML BAG IV SCH ×2 (20:41→22:12)
[2022-12-26] MEDS: HEPARIN SODIUM/DEXTROSE 25,000 UNITS/500 ML BAG IV SCH (23:48)
[2022-12-27] MEDS: MAGNESIUM SULFATE / D5W 1 GM/100 ML BAG IV SCH (00:15)
[2022-12-27] MEDS: AMIODARONE / D5W 360 MG/200 ML BAG IV SCH ×2 (01:04→13:48)
[2022-12-27 02:30] LABS: Partial Thromboplastin Ratio 2.4
[2022-12-27 02:39] LABS: Partial Thromboplastin Time 68.9 Seconds (21.0-31.0)
[2022-12-27 04:58] LABS: Hematocrit (blood only) 30.8 % (42.0-52.0); Hemoglobin 10.7 g/dl (14.0-18.0); Mean Corpuscular Hemoglobin 31.5 pg (25.0-34.0); Mean Corpuscular Hgb Conc 34.7 g/dL (32.0-36.0); Mean Corpuscular Volume 90.6 fL (80.0-100.0); Mean Platelet Volume 10.1 fL (9.4-12.4); Platelet Count 116 K/uL (130-400); RDW Coefficient of Variation 13.1 % (11.5-14.5); RDW Standard Deviation 43.7 fL (36.4-46.3); White Blood Count 14.73 K/ul (4.8-10.8)
[2022-12-27 05:28] LABS: Basophils # (auto) 0.05 K/uL (0.00-0.20); Basophils % (auto) 0.3 %; Dohle Bodies 1+; Eosinophils # (auto) 0.09 K/uL (0.00-0.50); Eosinophils % (auto) 0.6 %; Immature Granulocytes # (auto) 1.26 K/uL (0.01-0.20); Immature Granulocytes % (auto) 8.6 %; Lymphocytes # (auto) 0.99 K/uL (1.20-3.40); Lymphocytes % (auto) 6.7 %; Monocytes % (auto) 4.1 %; Neutrophils # (auto) 11.74 K/uL (1.40-6.50); Neutrophils % (auto) 79.7 %
[2022-12-27 05:31] LABS: Bilirubin,Total 0.3 mg/dl (0.2-1.0); Magnesium 2.6 mg/dl (1.7-2.4); Thyroid Stimulating Hormone 6.535 uIu/ml (0.300-4.500)
[2022-12-27] MEDS ORDERED: LOPERAMIDE HCL 2 MG CAP PO PRN (05:54)
[2022-12-27 06:08] LABS: T4 Free Thyroxine 0.96 ng/dl (0.61-1.60)
--- NOTE | 2022-12-27 07:17 | Electrocardiogram Report ---
Test Reason : Blood Pressure : / mmHG Vent. Rate : 134 BPM Atrial Rate : 000 BPM P-R Int : 000 ms QRS Dur : 096 ms QT Int : 346 ms P-R-T Axes : 000 -30 028 degrees QTc Int : 516 ms Poor data quality, interpretation may be adversely affected Atrial fibrillation with rapid ventricular response Left axis deviation 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) Anteroseptal infarct (cited on or before 02-NOV-2021) Abnormal ECG When compared with ECG of 02-NOV-2021 11:39, Atrial fibrillation is now Present Confirmed by Julio C Luke ([id number]) on 12/27/2022 7:16:49 AM Referred By: REFERRED SELF Confirmed By:Julio C Luke
--- NOTE | 2022-12-27 07:26 | Electrocardiogram Report ---
Test Reason : Blood Pressure : / mmHG Vent. Rate : 154 BPM Atrial Rate : 000 BPM P-R Int : 000 ms QRS Dur : 098 ms QT Int : 304 ms P-R-T Axes : 000 -35 025 degrees QTc Int : 486 ms Atrial fibrillation with rapid ventricular response Left axis deviation Low voltage QRS 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) Cannot rule out Anteroseptal infarct (cited on or before 02-NOV-2021) Abnormal ECG When compared with ECG of 25-DEC-2022 17:48, (unconfirmed) Nonspecific T wave abnormality, improved in Lateral leads Confirmed by Julio C Luke ([id number]) on 12/27/2022 7:25:47 AM Referred By: REFERRED SELF Confirmed By:Julio C Luke
--- NOTE | 2022-12-27 07:27 | Electrocardiogram Report ---
Test Reason : Blood Pressure : / mmHG Vent. Rate : 116 BPM Atrial Rate : 116 BPM P-R Int : 156 ms QRS Dur : 082 ms QT Int : 322 ms P-R-T Axes : 053 -12 051 degrees QTc Int : 447 ms Sinus tachycardia Low voltage QRS 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) Cannot rule out Anteroseptal infarct (cited on or before 02-NOV-2021) Abnormal ECG When compared with ECG of 25-DEC-2022 21:01, (unconfirmed) Sinus rhythm has replaced Atrial fibrillation Nonspecific T wave abnormality, improved in Inferior leads Confirmed by Julio C Luke ([id number]) on 12/27/2022 7:27:38 AM Referred By: REFERRED SELF Confirmed By:Julio C Luke
--- NOTE | 2022-12-27 07:34 | Critical Care Progress Note ---
Date of Service December 27, 2022 Assessment & Plan (1) Atrial fibrillation with rapid ventricular response: (2) Acute hypotension: (3) Elevated troponin: (4) Abnormal chest CT: (5) Electrolyte abnormality: (6) Metabolic acidosis: (7) GERD (gastroesophageal reflux disease): (8) HLD (hyperlipidemia): Plan Reason Critically Ill: 67 YOM presents tachycardic in afib, hypotensive and with chest pressure. Received multiple fluid boluses and initiation of vasopressors in setting of metabolic acidosis and hypovolemia. Neuro - Chronic shoulder pain, fall, ETOH dependance/misuse CAM ICU: Negative Shoulder pain -Recently prescribed diclofenac for shoulder discomfort Alcohol dependency - AWWS scoring and coverage with Ativan - Continue Thiamine Cardiac - Afib, Shock, Elevated HsCTNI, HLD - Presents in PAF which appears as new onset- without STEMI on ECG- amiodarone initiated- resulting in rate and rythm control - CHADSvasc2- 0 with current information -Cardiology consultation reviewed -Has been off vasoactive's -Optimize electrolytes mag greater than 2K greater than 4 - Elevated HScTNI - NStemi vs demand- as he did present with chest pressure- previously had favorable EST in 2020 -Continue heparin for A-fib and possible subacute PE, venous duplex negative - Continue statin Respiratory - Abnormal CTA of chest - Subacute PE vs. artifact- Heparin infusion as above - consider follow up scan for determination of PE: Deferring additional work-up at this time as cardiac work-up takes precedence -Venous duplex negative GI - GERD - no acute needs, requesting Carafate which is an outpatient medication 1 g twice daily RENAL/LYTES - Multiple electrolyte derangement, metabolic acidosis, elevated lactate: Resolved - electrolyte protocol - thimaine daily - BPH - bladder scan prn - follow urine output ENDO - hyperglycemia protocol HEME - No acute needs ID - No suspicion at this time of infectious etiology or sepsis - WBC normal, PCT negative, Urine negative, no pulmonary process LINES/IV ACCESS - PIV, DVT PROPHYLAXIS - SCDS, Heparin infusion DISPO: Stable for downgrade out of ICU Admission and Anticipated Discharge Date Admission Date: December 25, 2022 Physical Exam Physical Exam: General: Alert. nontoxic. Skin: Warm, dry, Head: Atraumatic Ears, nose, mouth and throat: airway patent Cardiovascular: Normal peripheral perfusion Respiratory: no respiratory distress Gastrointestinal: Non distended Musculoskeletal: No deformity Results & Data Results & Data Vital Signs (Past 12 Hours) Vital Signs Temp Pulse Resp BP Pulse Ox O2 Del Method O2 Flow Rate 12/27/22 05:00 65 19 116/70 98 12/27/22 04:00 66 20 118/66 97 12/27/22 03:00 65 18 115/68 98 12/27/22 02:00 66 21 107/62 98 12/27/22 01:00 66 21 109/65 98 12/27/22 00:00 69 21 122/69 99 12/26/22 23:00 75 35 H 115/70 98 12/27/22 03:53 36.7 C 12/27/22 00:00 67 12/26/22 23:08 Nasal Cannula 2 12/26/22 22:00 69 4 L 106/65 96 12/26/22 21:00 71 22 105/65 96 12/26/22 20:00 71 18 110/65 96 12/26/22 22:39 36.9 C 12/26/22 19:45 83 17 97 Critical Care Results & Data Vital Signs (Past 12 Hours) Vital Signs Temp Pulse Resp BP Pulse Ox O2 Del Method O2 Flow Rate 12/27/22 05:00 65 19 116/70 98 12/27/22 04:00 66 20 118/66 97 12/27/22 03:00 65 18 115/68 98 12/27/22 02:00 66 21 107/62 98 12/27/22 01:00 66 21 109/65 98 12/27/22 00:00 69 21 122/69 99 12/26/22 23:00 75 35 H 115/70 98 12/27/22 03:53 36.7 C 12/27/22 00:00 67 12/26/22 23:08 Nasal Cannula 2 12/26/22 22:00 69 4 L 106/65 96 12/26/22 21:00 71 22 105/65 96 12/26/22 20:00 71 18 110/65 96 12/26/22 22:39 36.9 C 12/26/22 19:45 83 17 97 Lab & Micro Results (Past 24 Hours) RBC 3.40 M/uL (4.70-6.10) L 12/27/22 WBC 14.73 K/ul (4.8-10.8) H 12/27/22 Hgb 10.7 g/dl (14.0-18.0) L 12/27/22 Hct 30.8 % (42.0-52.0) L 12/27/22 MCV 90.6 fL (80.0-100.0) 12/27/22 MCH 31.5 pg (25.0-34.0) 12/27/22 MCHC 34.7 g/dL (32.0-36.0) 12/27/22 RDW Standard Deviation 43.7 fL (36.4-46.3) 12/27/22 RDW Coefficient of Variation 13.1 % (11.5-14.5) 12/27/22 Plt Count 116 K/uL (130-400) L 12/27/22 MPV 10.1 fL (9.4-12.4) 12/27/22 Neutrophils (%) (Auto) 79.7 % 12/27/22 Lymphocytes (%) (Auto) 6.7 % 12/27/22 Monocytes # (Auto) 0.60 K/uL (0.11-0.59) H 12/27/22 Eosinophils # (Auto) 0.09 K/uL (0.00-0.50) 12/27/22 Immature Granulocyte % (Auto) 8.6 % 12/27/22 Neutrophils # (Auto) 11.74 K/uL (1.40-6.50) H 12/27/22 Lymphocytes # (Auto) 0.99 K/uL (1.20-3.40) L 12/27/22 Monocytes # (Auto) 0.60 K/uL (0.11-0.59) H 12/27/22 Eosinophils # (Auto) 0.09 K/uL (0.00-0.50) 12/27/22 Basophils # (Auto) 0.05 K/uL (0.00-0.20) 12/27/22 Immature Granulocyte # (Auto) 1.26 K/uL (0.01-0.20) H 12/27 Dohle Bodies 1+ 12/27/22 Na 135 mmol/L (136-145) L 12/26/22 K 4.3 mmol/L (3.5-5.1) 12/26/22 Cl 108 mmol/L (98-107) H 12/26/22 CO2 20 mmol/L (21-32) L 12/26/22 Anion Gap 7 (3-11) 12/26/22 BUN 17 mg/dl (6-23) 12/26/22 Creatinine 1.20 mg/dl (0.6-1.4) 12/26/22 Estimated GFR ( Amer) 71.6 ml/min 12/26/22 Estimated GFR (Non-Af Amer) 61.8 ml/min 12/26/22 BUN/Creatinine Ratio 14.2 (10-20) 12/26/22 Glu 127 mg/dl (70-99(Fasting)) H 12/26/22 Ca 7.4 mg/dl (8.6-10.3) L 12/26/22 Phosphorus Level 2.0 mg/dl (2.5-4.9) L 12/27/22 Total Bilirubin 0.3 mg/dl (0.2-1.0) 12/27/22 Direct Bilirubin 0.0 mg/dl (0-0.2) 12/27/22 AST 20 U/L (13-39) 12/27/22 ALT 10 U/L (7-52) 12/27/22 Alkaline Phosphatase 44 U/L (34-104) 12/27/22 TP 5.0 gm/dl (6.0-8.3) L 12/27/22 Albumin 3.0 gm/dl (3.4-5.0) L 12/27/22 Mg 2.6 mg/dl (1.7-2.4) H 12/27/22 04:22 Calcium Level 7.4 mg/dl (8.6-10.3) L 12/26/22 18:19 Microbiology 12/25/22 18:51 Aerobic Blood Culture - Preliminary Blood No growth in Aerobic bottle after 24 hours. Anaerobic Blood Culture - Preliminary No growth in Anaerobic bottle after 24 hours. 12/25/22 Unknown Aerobic Blood Culture - Preliminary Blood No growth in Aerobic bottle after 24 hours. Anaerobic Blood Culture - Preliminary No growth in Anaerobic bottle after 24 hours. Diagnostic Findings (Past 24 Hours) Venous Doppler Study 12/26/22 11:43 US venous doppler LE BI CLINICAL HISTORY: r/o dvt TECHNIQUE: Bilateral lower extremity real-time compression venous ultrasound with Color Doppler imaging. Utilizing real-time ultrasonic imaging multiple real time high-resolution ultrasonic images with compression and noncompression maneuvers of the deep venous system in addition to color doppler imaging were performed from the common femoral vein through the proximal calf veins. COMPARISON: None available at the time of this dictation. FINDINGS/IMPRESSION: Currently there is normal compressibility of the deep venous system from the common femoral vein through the proximal calf veins. Evaluation of the right groin is slightly limited by overlying bandages. ACT 112: Negative or not required by law. Electronically signed by: Tobias Presley M.D. 12/26/2022 6:19 PM I & O Totals 24 Hours 12/26/22 12/27/22 12/28/22 06:59 06:59 06:59 Intake Total 6429.308 / 6429.308 4585.384 / 4585.384 179.777 / 179.777 Output Total 325 / 325 1864 / 1864 Balance 6104.308 / 6104.308 2721.384 / 2721.384 179.777 / 179.777 Cumulative 12/25/22 17:31 thru 12/27/22 07:12 Intake Total 30100.469 Output Total 2189 Balance 9005.469 RT Ventilator Mngmt (Last Documented) Ventilator Ordered Settings Respiratory Rate 19 12/27/22 05:00 Ventilator - PT Measurements Respiratory Rate 19 Coding Level of Care Code 60772 SUB INP/OBS CARE 3/50MIN Diagnoses Atrial fibrillation with rapid ventricular response I48.91 Acute hypotension I95.9 Elevated troponin R79.[address] R93.89 Electrolyte abnormality E87.8 Metabolic acidosis E87.20 GERD (gastroesophageal reflux disease) K21.9 HLD (hyperlipidemia) E78.5
[2022-12-27] MEDS: ICU Protocol for HYPERglycemia SCH ×2 (08:47→13:07)
[2022-12-27 09:29] LABS: Partial Thromboplastin Ratio 1.6
[2022-12-27] MEDS: FOLIC ACID 1 MG in SYRINGE 9.8 ML IV SCH (09:36)
[2022-12-27] MEDS: THIAMINE HCL 100 MG in SYRINGE 9 ML IV SCH (09:36)
[2022-12-27 09:38] LABS: Partial Thromboplastin Time 44.7 Seconds (21.0-31.0)
--- NOTE | 2022-12-27 09:42 | Cardiology Progress Note ---
Date of Service December 27, 2022 Assessment & Plan (1) Atrial fibrillation with rapid ventricular response: Plan: * presented with AF, very rapid ventricular rates , over 160 bpm and converted to SR on IV amiodarone * [id number] Score = 1 for age > 65 years. * DC IV amiodarone * Start oral metoprolol tartrate 25 mg PO BID * Continue IV heparin for now for stroke prevention, also PE versus artifact on CT . LE venous duplex negative. (2) Acute hypotension: Plan: * now of IV fluids and Norepinephrine. * Metabolic acidosis noted on presentation * Low BP readings persisted for hours after AF with RVR resolved. * Normal LVEF on echo. (3) Non-sustained ventricular tachycardia: Plan: * numerous runs of NSVT on presentation, in setting of profound hypotension, AF RVR, longest episode was 19 beats in duration. No recurrence since evening of 12/25/22. * Start metoprololol (4) Metabolic acidosis: Plan: As noted above (5) Alcohol dependence: Plan: * Continue folic acid and thiamine. * May need DT prophylaxis. PRN lorazepam ordered by primary service Plan Relative mild troponin elevation that has trended down Presenting symptom of chest discomfort may be explained by the AF RVR . Will plan for further ischemic work up, lexiscan nuclear stress. Did not reach target HR in 2020 on stress echo. Admission and Anticipated Discharge Date Admission Date: December 25, 2022 Subjective Patient seen in cardiology follow up. Complained of vague resting chest tightness this am. EKG performed at 8:37 am, with no repolarization changes. Has pain in right axilla that radiates to his shoulder blade and this has been described in the past per outpatient notes. Physical Exam Constitutional: WD/WN, vitals as above Respiratory: normal respiratory effort, lungs clear to auscultation Cardiovascular: RRR, no murmur, no edema Chest (Breasts): normal inspection/palpation of breasts Gastrointestinal (Abdomen): normal bowel sounds, soft, nontender, no hepatosplenomegaly Neurologic: PERRL, EOMI, accommodation nl, no face palsy, no dysarthria Results & Data Vital Signs (Past 12 Hours) Vital Signs Temp Pulse Resp BP Pulse Ox O2 Del Method O2 Flow Rate 12/27/22 05:00 65 19 116/70 98 12/27/22 04:00 66 20 118/66 97 12/27/22 03:00 65 18 115/68 98 12/27/22 02:00 66 21 107/62 98 12/27/22 01:00 66 21 109/65 98 12/27/22 00:00 69 21 122/69 99 12/26/22 23:00 75 35 H 115/70 98 12/27/22 03:53 36.7 C 12/27/22 00:00 67 12/26/22 23:08 Nasal Cannula 2 12/26/22 22:00 69 4 L 106/65 96 12/26/22 22:39 36.9 C Laboratory Results Cardiac Enzymes 12/26/22 12/26/22 12/27/22 Range/Units 11:27 18:11 04:22 AST 20 (13-39) U/L Troponin I High Sens 178.0 H* D 126.9 H* D (0-20) pg/ml Coagulation 12/26/22 12/26/22 12/26/22 Range/Units 08:59 11:27 18:11 APTT > 139.0 H* 61.0 H* 75.3 H* (21.0-31.0) Seconds 12/27/22 Range/Units 01:33 APTT 68.9 H* (21.0-31.0) Seconds CBC 12/27/22 Range/Units 04:22 WBC 14.73 H (4.8-10.8) K/ul RBC 3.40 L (4.70-6.10) M/uL Hgb 10.7 L (14.0-18.0) g/dl Hct 30.8 L (42.0-52.0) % Plt Count 116 L (130-400) K/uL Neut # (Auto) 11.74 H (1.40-6.50) K/uL Lymph # (Auto) 0.99 L (1.20-3.40) K/uL [place]ton # (Auto) 0.60 H (0.11-0.59) K/uL Eos # (Auto) 0.09 (0.00-0.50) K/uL Baso # (Auto) 0.05 (0.00-0.20) K/uL Comprehensive Metabolic Panel 12/26/22 12/27/22 Range/Units 18:19 04:22 Sodium 135 L (136-145) mmol/L Potassium 4.3 (3.5-5.1) mmol/L Chloride 108 H (98-107) mmol/L Carbon Dioxide 20 L (21-32) mmol/L BUN 17 (6-23) mg/dl Creatinine 1.20 (0.6-1.4) mg/dl Glucose 127 H (70-99(Fasting)) mg/dl Calcium 7.4 L (8.6-10.3) mg/dl Direct Bilirubin 0.0 (0-0.2) mg/dl AST 20 (13-39) U/L ALT 10 (7-52) U/L Alkaline Phosphatase 44 (34-104) U/L Total Protein 5.0 L (6.0-8.3) gm/dl Albumin 3.0 L (3.4-5.0) gm/dl Intake and Output 12/26/22 12/27/22 12/27/22 22:59 06:59 14:59 Intake Total 2216.883 / 4585.384 829.368 / 4585.384 179.777 / 179.777 Output Total 582 / 1864 628 / 1864 Balance 1634.883 / 2721.384 201.368 / 2721.384 179.777 / 179.777 Intake: IV 2216.883 / 4235.384 529.368 / 4235.384 179.777 / 179.777 Amiodarone / D5w 360 mg In 200 192.885 / 370.183 102.427 / 102.427 ml @ 0.5 MG/MIN 16.667 mls/hr IV .Q12H [facility] Rx#:[id number] Heparin Sodium/Dextrose 25,000 141.05 / 541.916 136.483 / 541.916 77.35 / 77.35 units In 500 ml @ 850 UNITS/HR 17 mls/hr IV .Q24H [facility] Rx#: [id number] Magnesium Sulfate / D5w 1 gm In 75.833 / 275.833 200 / 275.833 100 ml @ 50 mls/hr IV Q2H [facility] Rx#:[id number] Plasma-Lyte A 1,000 ml @ 125 2000 / 3000 mls/hr IV .Q8H [facility] Rx#:[id number] Oral 300 / 350 Output: Urine 575 / 1850 625 / 1850 # Bowel Movements Other: Weight 87.3 kg Weight Measurement Method Built in [facility]
[2022-12-27] MEDS: ASPIRIN 81 MG ECTAB PO SCH (11:29)
--- NOTE | 2022-12-27 12:43 | Hospitalist Progress Note ---
Date of Service December 27, 2022 Assessment & Plan (1) Rapid atrial fibrillation: Plan: 67-year-old male with past medical significant for hyperlipidemia, GERD, BPH, presents with chest pain ,dizziness and not feeling well and was in rapid A-fib in the ER and was hypotensive. Atrial fibrillation with rapid ventricular response with hypotension -On amiodarone drip with conversion to normal sinus rhythm on admission. Remains on Amio drip and heparin drip. Further management per cardiology and associate research scientist. Echo unremarkable. Elevated troponin is probably demand ischemia related to A-fib with RVR. -Ischemic work-up tomorrow per cardiology Hypotension-requiring pressor support, now off of levophed Alcohol abuse-currently not in withdrawal. Alcohol elevated 104. Urine tox screen negative. Management per associate research scientist. Possible PE versus artifact on CT-elevated D-dimer, ultrasound lower extremity negative for DVT, now on IV heparin. Might need repeat CT PE for confirmation. Diarrhea-GI bio fire and C. difficile negative. Continue supportive management. Improved with Imodium. Leukocytosis- ?Reactive. Improving Hypokalemia-resolved Hypocalcemia, hypophosphatemia-replete per ICU protocol DVT prophylaxis-heparin drip Disposition-remains in ICU for IV amiodarone. Ischemic work-up tomorrow per cardiology (2) Electrolyte abnormality: (3) Abnormal chest CT: (4) Atrial fibrillation with rapid ventricular response: Admission and Anticipated Discharge Date Admission Date: December 25, 2022 Subjective Patient was seen and examined at bedside. Complains of some substernal discomfort when drinking. Denies any withdrawal symptoms currently. No fever, chills, chest pain, palpitations, shortness of breath, nausea or vomiting Review of Systems Review of Systems: All systems reviewed & are unremarkable except as noted in Subjective Physical Exam Physical Exam: General: Lying comfortably in bed, not in distress, on room air HEENT: EOMI, JASE, MMM Chest: Clear breath sounds bilaterally, no wheezes or crackles CVS: Regular rate and rhythm, normal heart sounds, no murmur Abdomen: Soft, non tender, not distended, normal bowel sounds Neuro: Awake, alert, oriented, conversing well, non focal Extremities: No cyanosis, clubbing or edema Results & Data Results & Data Vital Signs (Past 12 Hours) Vital Signs Temp Pulse Resp BP Pulse Ox O2 Del Method O2 Flow Rate 12/27/22 12:08 36.4 C 12/27/22 08:00 71 12/27/22 10:00 63 21 97 12/27/22 10:00 140/81 12/27/22 09:00 15 98 12/27/22 09:00 119/73 Nasal Cannula 2 12/27/22 08:00 70 20 96 12/27/22 08:00 111/73 12/27/22 07:00 65 15 94 12/27/22 07:00 122/72 12/27/22 06:00 66 21 97 12/27/22 06:00 129/76 12/27/22 07:00 36.6 C 12/27/22 05:00 65 19 116/70 98 12/27/22 04:00 66 20 118/66 97 12/27/22 03:00 65 18 115/68 98 12/27/22 02:00 66 21 107/62 98 12/27/22 01:00 66 21 109/65 98 12/27/22 03:53 36.7 C Laboratory Results Short CBC 12/27/22 Range/Units 04:22 WBC 14.73 H (4.8-10.8) K/ul Hgb 10.7 L (14.0-18.0) g/dl Hct 30.8 L (42.0-52.0) % Plt Count 116 L (130-400) K/uL BMP 12/26/22 18:19 Sodium 135 L Potassium 4.3 Chloride 108 H Carbon Dioxide 20 L BUN 17 Creatinine 1.20 Glucose 127 H Calcium 7.4 L Liver Function 12/27/22 Range/Units 04:22 Total Bilirubin 0.3 (0.2-1.0) mg/dl Direct Bilirubin 0.0 (0-0.2) mg/dl AST 20 (13-39) U/L ALT 10 (7-52) U/L Alkaline Phosphatase 44 (34-104) U/L Albumin 3.0 L (3.4-5.0) gm/dl
[2022-12-27] MEDS ORDERED: SUCRALFATE 1 GM TAB PO SCH (12:45)
[2022-12-27] MEDS ORDERED: PANTOprazole 40 MG TAB PO SCH (12:45)
[2022-12-27] MEDS: SUCRALFATE 1 GM TAB PO SCH ×2 (13:20→21:02)
[2022-12-27] MEDS ORDERED: METOPROLOL TARTRATE 25 MG TAB PO ONE (13:27)
[2022-12-27] MEDS ORDERED: GABAPENTIN 1200MG ALCOHOL WITHDRAWAL LOAD PO STA (15:18)
[2022-12-27] MEDS ORDERED: GABAPENTIN 600 MG TAB PO ONE (15:18)
[2022-12-27] MEDS: GABAPENTIN 600 MG TAB PO SCH (21:01)
[2022-12-27] MEDS: METOPROLOL TARTRATE 25 MG TAB PO SCH (21:02)
[2022-12-28] MEDS: GABAPENTIN 600 MG TAB PO SCH ×3 (04:54→19:49)
[2022-12-28 05:21] LABS: BUN Creatinine Ratio 11.6 (10-20); Calcium 8.1 mg/dl (8.6-10.3); Creatinine Clr Calc Pharmacy 89.9 ml/min; Est GFR (African American) 103.3 ml/min; Est GFR (Non-African American) 89.1 ml/min; Magnesium 2.2 mg/dl (1.7-2.4); Phosphorus 1.6 mg/dl (2.5-4.9); Potassium 3.8 mmol/L (3.5-5.1)
[2022-12-28 05:33] LABS: Hematocrit (blood only) 33.4 % (42.0-52.0); Hemoglobin 11.5 g/dl (14.0-18.0); Mean Corpuscular Hemoglobin 31.4 pg (25.0-34.0); Mean Corpuscular Hgb Conc 34.4 g/dL (32.0-36.0); Mean Corpuscular Volume 91.3 fL (80.0-100.0); Mean Platelet Volume 10.5 fL (9.4-12.4); Platelet Count 146 K/uL (130-400); RDW Standard Deviation 43.9 fL (36.4-46.3); Red Blood Count 3.66 M/uL (4.70-6.10); White Blood Count 17.29 K/ul (4.8-10.8)
[2022-12-28 06:16] LABS: Basophils # (auto) 0.06 K/uL (0.00-0.20); Basophils % (auto) 0.3 %; Dohle Bodies 1+; Eosinophils # (auto) 0.18 K/uL (0.00-0.50); Immature Granulocytes # (auto) 1.38 K/uL (0.01-0.20); Lymphocytes # (auto) 1.21 K/uL (1.20-3.40); Monocytes # (auto) 0.47 K/uL (0.11-0.59); Monocytes % (auto) 2.7 %; Neutrophils # (auto) 13.99 K/uL (1.40-6.50); Polychromasia 1+
--- NOTE | 2022-12-28 07:58 | Hospitalist Progress Note ---
Date of Service December 28, 2022 Assessment & Plan (1) Rapid atrial fibrillation: Plan: 67-year-old male with past medical Hx significant for hyperlipidemia, GERD, BPH who presented with chest pain ,dizziness and generalized malaise. Was found to be in rapid A-fib in the ER and was hypotensive. Atrial fibrillation with rapid ventricular response with hypotension On amiodarone drip with conversion to normal sinus rhythm on admission. Currently on metoprolol tartrate 25mg BID. Further management per cardiology. Echo unremarkable. Elevated troponin is probably demand ischemia related to A-fib with RVR. Had nuclear stress test, awaiting read. Hypotension Previously required pressor support in the ICU now off of levophed and resolved, downgraded. Alcohol abuse currently not in withdrawal. Alcohol elevated at 104. Urine tox screen negative. AWSS protocol with gabapentin Possible PE versus artifact on CT elevated D-dimer ultrasound lower extremity negative for DVT was on IV heparin. Might need repeat CT PE for confirmation. Diarrhea GI bio fire and C. difficile negative. Continue supportive management. Improved with Imodium. Leukocytosis ?Reactive. Improving Hypokalemia resolved Hypocalcemia, hypophosphatemia repleted as needed DVT prophylaxis-on eliquis per Cardiology Disposition-pending cardiology recs after pacemaker placement. (2) Electrolyte abnormality: (3) Abnormal chest CT: (4) Atrial fibrillation with rapid ventricular response: Admission and Anticipated Discharge Date Admission Date: December 25, 2022 Subjective Pt was seen after his stress test. Stated that he did not have acute concerns. Did note an episode of heartburn that was relieved by prn medication. Review of Systems Review of Systems: All systems reviewed & are unremarkable except as noted in Subjective Physical Exam Physical Exam: General: Alert, oriented. No acute distress Skin: No noted rashes or bruises Psych: Appropriate mood and affect Neuro: No gross deficits HEENT: NC/AT Chest: Nontender to palpation. CV: RRR Resp: Breath sounds clear bilaterally, no increased effort of breathing. Abdomen:Soft, nontender, nondistended. Extremities: No edema in lower extremities bilaterally. Results & Data Results & Data Vital Signs (Past 12 Hours) Vital Signs Temp Pulse Pulse Resp BP BP Pulse Ox 12/28/22 04:08 37.1 C 62 20 151/91 H 93 12/28/22 00:00 63 12/27/22 23:41 36.9 C 71 16 145/85 H 91 12/27/22 23:00 12/27/22 21:00 67 20 157/96 H 12/27/22 20:00 70 23 164/98 H O2 Del Method O2 Del Method 12/28/22 04:08 Room Air 12/28/22 00:00 12/27/22 23:41 Room Air 12/27/22 23:00 Room Air 12/27/22 21:00 12/27/22 20:00
--- NOTE | 2022-12-28 08:21 | Cardiology Progress Note ---
Date of Service December 28, 2022 Assessment & Plan (1) Atrial fibrillation with rapid ventricular response: (2) Acute hypotension: (3) Non-sustained ventricular tachycardia: (4) Metabolic acidosis: Plan: As noted above (5) Alcohol dependence: Admission and Anticipated Discharge Date Admission Date: December 25, 2022 Supervising Physician Co-Signing Physician Notes 67 yo man Presenting with Afib - RVR and hypotension * Afib - initially with rapid ventricular response - HR >160 BPM * Patient converted to NSR on IV Amiodarone * Presently in NSR * LVEF 55%, No significant or MR; RV is normal size * [id number] Score = 1 for age > 65 years. * Amiodarone IV (OFF) * Started on Lopressor 25 mg po BID - HR in 60-70 * Stop Lopressor * Start Toprol XL 75 mg po per day * Continue ASA * Continue IV heparin for now for stroke prevention, also PE versus artifact on CT . LE venous duplex negative. * Pressors (off) * + NSVT on presentation, in setting of profound hypotension - longest episode was 19 beats in duration. No recurrence since evening of 12/25/22. * Continue folic acid and thiamine. * DT prophylaxis as oer primary service * Relative mild troponin elevation that has trended down * Plans for further ischemic workup, lexiscan nuclear stress on 12/28/2022 - Pt is currently NPO * Repelte K+ - goal 4.5-5 * Mag goal >2 * Replete PO4 * SBP >120 mmHg - consider starting Lisinopril 10 mg po per day * TSH - elevated - endocrine F/U * F/U with [facility] Luis Sawant Subjective Events overnight - none reported Review of Systems Review of Systems: All systems reviewed & are unremarkable except as noted in HPI & below Physical Exam Physical Exam: No elevation in JVP S1S2 Soft 2/6 systolic murmur CTA B No LE edema Warm and perfusing Results & Data Vital Signs (Past 12 Hours) Vital Signs Temp Pulse Pulse Resp BP BP Pulse Ox 12/28/22 04:08 37.1 C 62 20 151/91 H 93 12/28/22 00:00 63 12/27/22 23:41 36.9 C 71 16 145/85 H 91 12/27/22 23:00 12/27/22 21:00 67 20 157/96 H O2 Del Method O2 Del Method 12/28/22 04:08 Room Air 12/28/22 00:00 12/27/22 23:41 Room Air 12/27/22 23:00 Room Air 12/27/22 21:00 Laboratory Results Coagulation 12/27/22 Range/Units 08:35 APTT 44.7 H* (21.0-31.0) Seconds CBC 12/28/22 Range/Units 04:23 WBC 17.29 H (4.8-10.8) K/ul RBC 3.66 L (4.70-6.10) M/uL Hgb 11.5 L (14.0-18.0) g/dl Hct 33.4 L (42.0-52.0) % Plt Count 146 (130-400) K/uL Neut # (Auto) 13.99 H (1.40-6.50) K/uL Lymph # (Auto) 1.21 (1.20-3.40) K/uL [place] # (Auto) 0.47 (0.11-0.59) K/uL Eos # (Auto) 0.18 (0.00-0.50) K/uL Baso # (Auto) 0.06 (0.00-0.20) K/uL Comprehensive Metabolic Panel 12/28/22 Range/Units 04:23 Sodium 138 (136-145) mmol/L Potassium 3.8 (3.5-5.1) mmol/L Chloride 110 H (98-107) mmol/L Carbon Dioxide 22 (21-32) mmol/L BUN 10 (6-23) mg/dl Creatinine 0.86 D (0.6-1.4) mg/dl Glucose 106 H (70-99(Fasting)) mg/dl Calcium 8.1 L (8.6-10.3) mg/dl Intake and Output 12/27/22 12/28/22 12/28/22 22:59 06:59 14:59 Intake Total 0 / 720.700 Output Total 1650 / 3250 400 / 3250 Balance -1650 / -2529.300 -400 / -2529.300 Intake: Oral 0 / 400 Output: Urine 1650 / 3250 400 / 3250 Other: # Unmeasured Voids 0 Weight 85.6 kg Weight Measurement Method Built in Bedscale Medications Administered Current Inpatient Medications Acetaminophen (Acetaminophen 325 Mg Tab) 650 mg PO Q6H PRN PRN Reason: Pain or Fever Stop: 01/25/23 09:48 Last Admin: 12/26/22 10:13 Dose: 650 mg Aspirin (Aspirin 81 Mg Ectab) 81 mg PO QAM [facility] Stop: 01/26/23 09:44 Last Admin: 12/27/22 11:29 Dose: 81 mg Folic Acid (Folic Acid 1 Mg Tab) 1 mg PO QAM [facility] Stop: 01/27/23 08:59 Gabapentin (Gabapentin 600 Mg Tab) 600 mg PO Q24H [facility] Stop: 12/31/22 05:01 Gabapentin (Gabapentin 600 Mg Tab) 600 mg PO Q12H [facility] Stop: 12/30/22 04:01 Gabapentin (Gabapentin 600 Mg Tab) 600 mg PO Q8H [facility] Stop: 12/29/22 04:01 Amiodarone HCl/Dextrose (Nexterone / D5w) 360 mg in 200 mls @ 16.667 mls/hr IV .Q12H [facility] Stop: 01/24/23 20:44 Last Admin: 12/27/22 13:48 Dose: Not Given Loperamide HCl (Loperamide Hcl 2 Mg Cap) 2 mg PO Q8 PRN PRN Reason: Loose Stool Stop: 01/26/23 05:53 Last Admin: 12/27/22 05:57 Dose: 2 mg Lorazepam (Lorazepam 2 Mg/1 Ml Vial) 3 mg IV ONCE PRN; Protocol PRN Reason: EtOH Withdrawal AWSS Score 10+ Lorazepam (Lorazepam 2 Mg/1 Ml Vial) 2 mg IV UD PRN; Protocol PRN Reason: EtOH Withdrawal AWSS Score 8,9 Stop: 01/24/23 23:07 Lorazepam (Lorazepam 2 Mg/1 Ml Vial) 1 mg IV UD PRN; Protocol PRN Reason: EtOH Withdrawal AWSS Score 6,7 Stop: 01/24/23 23:07 Metoprolol Tartrate (Metoprolol Tartrate 25 Mg Tab) 25 mg PO BID [facility] Stop: 01/26/23 20:59 Last Admin: 12/27/22 21:02 Dose: 25 mg Sucralfate (Sucralfate 1 Gm Tab) 1 gm PO BID [facility] Stop: 01/26/23 12:59 Last Admin: 12/27/22 21:02 Dose: 1 gm Thiamine HCl (Thiamine Hcl 100 Mg Tab) 100 mg PO ROGERIO [facility] Stop: 01/27/23 08:59
[2022-12-28] MEDS: METOPROLOL TARTRATE 25 MG TAB PO SCH ×2 (09:18→19:49)
[2022-12-28] MEDS: AMIODARONE / D5W 360 MG/200 ML BAG IV SCH (09:18)
[2022-12-28] MEDS ORDERED: REGADENOSON 0.4 MG/5 ML SYR IV ONE (10:03)
[2022-12-28] MEDS: THIAMINE HCL 100 MG TAB PO SCH (13:09)
[2022-12-28] MEDS: FOLIC ACID 1 MG TAB PO SCH (13:10)
[2022-12-28] MEDS: ASPIRIN 81 MG ECTAB PO SCH (13:10)
[2022-12-28] MEDS: SUCRALFATE 1 GM TAB PO SCH ×2 (13:10→19:50)
[2022-12-28] MEDS ORDERED: POTASSIUM PHOS 3 MMOL/1 ML INFUSION IV STA (13:48)
[2022-12-28] MEDS ORDERED: POTASSIUM PHOSPHATE 21 MMOL in SODIUM CHLORIDE 0.9% 500 ML IV ONE (14:00)
--- NOTE | 2022-12-28 18:10 | Myocardial Perfusion Study ---
Date of Service December 28, 2022 Myocardial Perfusion Study [facility] Myocardial Perfusion Study Report Procedure: 1. Myocardial perfusion study performed in multiple views/images 2. Lexiscan pharmacologic stress EKG Indications: 1. Chest tightness 2. Symptomatic atrial fibrillation Ordering physician: Dr Armas Procedural details: For the stress portion of the study, Lexiscan 0.4 mg was intravenously administered followed by a saline flush. This was followed by 30.3 mCi of ginger hnetium 99m Cardiolite, injected at 11:30 am on 12/28/22. 30 minutes following the injection, imaging of the heart was performed in multiple projections. For the rest portion of the study, 10.5 mCi technetium 99m Cardiolite was injected intravenously at 9:33 am on 12/28/22 . 1 hour following the injection, imaging of the heart was performed in the same projections. Lexiscan stress EKG: The baseline EKG reveals sinus rhythm in the 60s. The ST segments are normal on the resting EKG. The stress EKG response is negative for ischemia. Sinus rhythm was observed throughout the study. Resting blood pressure: 176/92 mmHg Maximum blood pressure: 176/[address] changes: None Arrhythmia: None Symptoms: Transient chest pain with lexiscan, that resolved in the post stress recovery interval. Findings: Rotating raw imaging demonstrated no significant lung uptake. There is no significant motion artifact. Heart size appeared normal. Myocardial perfusion demonstrated a large fixed inferior perfusion defect. In light of the appearance of the raw data and the gated wall motion, this is felt to be an attenuation artifact. There is no evidence of reversible ischemia. Ejection fraction:48% Wall motion: Borderline to mild diffuse left ventricular hypokinesis No significant transient ischemic dilation. Impression: 1. The pharmacologic myocardial perfusion imaging study is negative for inducible ischemia. 2. Left ventricular ejection fraction 48% by the gated SPECT technique.
--- NOTE | 2022-12-28 18:28 | Communication Note ---
Date of Service: December 28, 2022 Nuclear stress is negative for ischemia. Plan: Stop amiodarone. Start Eliquis 5 mg BID for stroke prophylaxis , also mild equivocal findings on CTA suggestive of pulmonary embolism.
[2022-12-28] MEDS ORDERED: APIXABAN 5 MG TABLET PO ONE (18:45)
[2022-12-29] MEDS: GABAPENTIN 600 MG TAB PO SCH (05:35)
--- NOTE | 2022-12-29 06:09 | Electrocardiogram Report ---
Test Reason : Blood Pressure : / mmHG Vent. Rate : 087 BPM Atrial Rate : 087 BPM P-R Int : 196 ms QRS Dur : 098 ms QT Int : 376 ms P-R-T Axes : 139 191 164 degrees QTc Int : 452 ms Arm lead reversal is present Low voltage QRS Septal infarct (cited on or before 02-NOV-2021) Abnormal ECG When compared with ECG of 25-DEC-2022 21:15, (unconfirmed) No significant change taking into account lead reversal Confirmed by Julio C Luke ([id number]) on 12/29/2022 6:09:17 AM Referred By: REFERRED SELF Confirmed By:Julio C Luke
--- NOTE | 2022-12-29 06:11 | Electrocardiogram Report ---
Test Reason : Blood Pressure : / mmHG Vent. Rate : 084 BPM Atrial Rate : 084 BPM P-R Int : 200 ms QRS Dur : 094 ms QT Int : 386 ms P-R-T Axes : 033 -10 013 degrees QTc Int : 456 ms Normal sinus rhythm Low voltage QRS Borderline ECG When compared with ECG of 26-DEC-2022 06:10, (unconfirmed) prior tracing has lead reversal, otherwise no change Confirmed by Julio C Luke ([id number]) on 12/29/2022 6:10:43 AM Referred By: REFERRED SELF Confirmed By:Julio C Luke
[2022-12-29 06:25] LABS: Basophils # (auto) 0.03 K/uL (0.00-0.20); Basophils % (auto) 0.3 %; Eosinophils % (auto) 2.6 %; Immature Granulocytes # (auto) 0.06 K/uL (0.01-0.20); Immature Granulocytes % (auto) 0.5 %; Lymphocytes # (auto) 1.65 K/uL (1.20-3.40); Lymphocytes % (auto) 14.3 %; Mean Corpuscular Hemoglobin 30.9 pg (25.0-34.0); Mean Corpuscular Hgb Conc 35.3 g/dL (32.0-36.0); Mean Corpuscular Volume 87.6 fL (80.0-100.0); Mean Platelet Volume 10.1 fL (9.4-12.4); Monocytes # (auto) 0.53 K/uL (0.11-0.59); Monocytes % (auto) 4.6 %; Neutrophils # (auto) 8.95 K/uL (1.40-6.50); Neutrophils % (auto) 77.7 %; Platelet Count 165 K/uL (130-400); RDW Coefficient of Variation 12.8 % (11.5-14.5); Red Blood Count 3.88 M/uL (4.70-6.10); White Blood Count 11.52 K/ul (4.8-10.8)
--- NOTE | 2022-12-29 06:35 | Electrocardiogram Report ---
Test Reason : Blood Pressure : / mmHG Vent. Rate : 072 BPM Atrial Rate : 072 BPM P-R Int : 244 ms QRS Dur : 110 ms QT Int : 458 ms P-R-T Axes : 021 -19 024 degrees QTc Int : 501 ms Sinus rhythm with 1st degree A-V block Cannot rule out Anterior infarct , age undetermined Prolonged QT Abnormal ECG When compared with ECG of 26-DEC-2022 08:11, (unconfirmed) [place] interval has increased Minimal criteria for Anterior infarct are now Present Confirmed by Julio C Luke ([id number]) on 12/29/2022 6:34:59 AM Referred By: REFERRED SELF Confirmed By:Julio C Luke
--- NOTE | 2022-12-29 06:47 | Electrocardiogram Report ---
Test Reason : Blood Pressure : / mmHG Vent. Rate : 065 BPM Atrial Rate : 065 BPM P-R Int : 256 ms QRS Dur : 100 ms QT Int : 452 ms P-R-T Axes : 037 -16 021 degrees QTc Int : 470 ms Sinus rhythm with 1st degree A-V block Low voltage QRS Septal infarct (cited on or before 26-DEC-2022) Abnormal ECG When compared with ECG of 26-DEC-2022 22:31, (unconfirmed) Questionable change in initial forces of Anterior leads Confirmed by Julio C Luke ([id number]) on 12/29/2022 6:47:24 AM Referred By: REFERRED SELF Confirmed By:Julio C Luke
[2022-12-29 06:56] LABS: Albumin Globulin Ratio 1.2 (0.9-2); Bilirubin,Total 0.6 mg/dl (0.2-1.0); Calcium 8.2 mg/dl (8.6-10.3); Creatinine Clr Calc Pharmacy 102.2 ml/min; Est GFR (African American) 109.2 ml/min; Est GFR (Non-African American) 94.3 ml/min; Globulin 2.6 gm/dl (2.5-4.0); Magnesium 1.7 mg/dl (1.7-2.4); Phosphorus 2.6 mg/dl (2.5-4.9); Potassium 3.8 mmol/L (3.5-5.1); Total Protein 5.6 gm/dl (6.0-8.3)
--- NOTE | 2022-12-29 07:17 | Electrocardiogram Report ---
Test Reason : Blood Pressure : / mmHG Vent. Rate : 066 BPM Atrial Rate : 066 BPM P-R Int : 230 ms QRS Dur : 112 ms QT Int : 480 ms P-R-T Axes : 014 -23 011 degrees QTc Int : 503 ms Poor data quality, interpretation may be adversely affected Sinus rhythm with 1st degree A-V block Cannot rule out Anterior infarct (cited on or before 26-DEC-2022) Abnormal ECG When compared with ECG of 27-DEC-2022 08:37, (unconfirmed) Questionable change in initial forces of Anterior leads Confirmed by Julio C Luke ([id number]) on 12/29/2022 7:17:20 AM Referred By: REFERRED SELF Confirmed By:Julio C Luke
--- NOTE | 2022-12-29 07:47 | Cardiology Progress Note ---
Date of Service December 29, 2022 Assessment & Plan Admission and Anticipated Discharge Date Admission Date: December 25, 2022 Supervising Physician Co-Signing Physician Notes 67 yo man Presenting with Afib - RVR and hypotension * Afib - initially with rapid ventricular response - HR >160 BPM * Patient converted to NSR on IV Amiodarone * Presently in NSR * LVEF 55%, No significant or MR; RV is normal size * [id number] Score = 1 for age > 65 years. * Amiodarone IV (OFF) * Started on Lopressor 25 mg po BID - HR in 60-70 * Stop Lopressor * Start Toprol XL 50 mg po per day * Continue ASA * IV heparin (OFF) * DOAC started - indication - stroke prevention + PE on CT (confirmed) . LE venous duplex negative. * Pressors (off) * + NSVT on presentation, in setting of profound hypotension - longest episode was 19 beats in duration. No recurrence since evening of 12/25/22. * Continue folic acid and thiamine. * DT prophylaxis as per primary service * Relative mild troponin elevation that has trended down * Ischemic evaluation - pharmacologic nuclear stress on 12/28/2022 - No evidence of ischemia * Replete K+ - goal 4.5-5 * Mag goal >2 * Replete PO4 * SBP >120 mmHg - consider starting Lisinopril 10 mg po per day * TSH - elevated - endocrine F/U * Counseled to stop ETOH use * F/U with [facility] * Please call back with any additional questions Luis Sawant Subjective Events Overnight: None reported NSR Subjective: No complaints Review of Systems Review of Systems: All systems reviewed & are unremarkable except as noted in HPI & below Physical Exam Physical Exam: No elevation in JVP S1S2 Soft 2/6 systolic murmur CTA B No LE edema Warm and perfusing Results & Data Vital Signs (Past 12 Hours) Vital Signs Temp Pulse Pulse Resp BP Pulse Ox O2 Del Method 12/29/22 03:00 36.7 C 62 16 158/90 H 92 Room Air 12/28/22 23:10 36.5 C 64 16 136/83 94 Room Air 12/28/22 20:00 Room Air 12/28/22 22:00 63 Laboratory Results Cardiac Enzymes 12/29/22 Range/Units 06:07 AST 12 L (13-39) U/L CBC 12/29/22 Range/Units 06:07 WBC 11.52 H (4.8-10.8) K/ul RBC 3.88 L (4.70-6.10) M/uL Hgb 12.0 L (14.0-18.0) g/dl Hct 34.0 L (42.0-52.0) % Plt Count 165 (130-400) K/uL Neut # (Auto) 8.95 H (1.40-6.50) K/uL Lymph # (Auto) 1.65 (1.20-3.40) K/uL [place] # (Auto) 0.53 (0.11-0.59) K/uL Eos # (Auto) 0.30 (0.00-0.50) K/uL Baso # (Auto) 0.03 (0.00-0.20) K/uL Comprehensive Metabolic Panel 12/29/22 Range/Units 06:07 Sodium 139 (136-145) mmol/L Potassium 3.8 (3.5-5.1) mmol/L Chloride 109 H (98-107) mmol/L Carbon Dioxide 25 (21-32) mmol/L BUN 9 (6-23) mg/dl Creatinine 0.75 (0.6-1.4) mg/dl Glucose 106 H (70-99(Fasting)) mg/dl Calcium 8.2 L (8.6-10.3) mg/dl AST 12 L (13-39) U/L ALT 10 (7-52) U/L Alkaline Phosphatase 54 (34-104) U/L Total Protein 5.6 L (6.0-8.3) gm/dl Albumin 3.0 L (3.4-5.0) gm/dl Intake and Output 12/28/22 12/29/22 12/29/22 22:59 06:59 14:59 Intake Total 732 / 732 Balance 732 / 232 Intake: IV 507 / 507 Potassium Phosphate 21 mmol In 507 / 507 Sodium Chloride 0.9% 500 ml @ 88 mls/hr IV ONE ONE Rx#: [id number] Oral 225 / 225 Other: # Unmeasured Voids 2 Diagnostic Findings Pharmacologic Stress Test: 12-28-2022 Impression: 1. The pharmacologic myocardial perfusion imaging study is negative for inducible ischemia. 2. Left ventricular ejection fraction 48% by the gated SPECT technique. Medications Administered Current Inpatient Medications Acetaminophen (Acetaminophen 325 Mg Tab) 650 mg PO Q6H PRN PRN Reason: Pain or Fever Stop: 01/25/23 09:48 Last Admin: 12/26/22 10:13 Dose: 650 mg Apixaban (Apixaban 5 Mg Tablet) 5 mg PO BID [facility] Stop: 01/28/23 08:59 Aspirin (Aspirin 81 Mg Ectab) 81 mg PO QAM [facility] Stop: 01/26/23 09:44 Last Admin: 12/28/22 13:10 Dose: 81 mg Folic Acid (Folic Acid 1 Mg Tab) 1 mg PO QAM [facility] Stop: 01/27/23 08:59 Last Admin: 12/28/22 13:10 Dose: 1 mg Gabapentin (Gabapentin 600 Mg Tab) 600 mg PO Q24H [facility] Stop: 12/31/22 05:01 Last Admin: 12/29/22 04:47 Dose: 600 mg Gabapentin (Gabapentin 600 Mg Tab) 600 mg PO Q12H [facility] Stop: 12/30/22 04:01 Loperamide HCl (Loperamide Hcl 2 Mg Cap) 2 mg PO Q8 PRN PRN Reason: Loose Stool Stop: 01/26/23 05:53 Last Admin: 12/27/22 05:57 Dose: 2 mg Lorazepam (Lorazepam 2 Mg/1 Ml Vial) 3 mg IV ONCE PRN; Protocol PRN Reason: EtOH Withdrawal AWSS Score 10+ Lorazepam (Lorazepam 2 Mg/1 Ml Vial) 2 mg IV UD PRN; Protocol PRN Reason: EtOH Withdrawal AWSS Score 8,9 Stop: 01/24/23 23:07 Lorazepam (Lorazepam 2 Mg/1 Ml Vial) 1 mg IV UD PRN; Protocol PRN Reason: EtOH Withdrawal AWSS Score 6,7 Stop: 01/24/23 23:07 Metoprolol Tartrate (Metoprolol Tartrate 25 Mg Tab) 25 mg PO BID [facility] Stop: 01/26/23 20:59 Last Admin: 12/28/22 19:49 Dose: 25 mg Sucralfate (Sucralfate 1 Gm Tab) 1 gm PO BID [facility] Stop: 01/26/23 12:59 Last Admin: 12/28/22 19:50 Dose: 1 gm Thiamine HCl (Thiamine Hcl 100 Mg Tab) 100 mg PO QAM [facility] Stop: 01/27/23 08:59 Last Admin: 12/28/22 13:09 Dose: 100 mg
[2022-12-29] MEDS: ASPIRIN 81 MG ECTAB PO SCH (08:39)
[2022-12-29] MEDS: METOPROLOL TARTRATE 25 MG TAB PO SCH (08:39)
[2022-12-29] MEDS: FOLIC ACID 1 MG TAB PO SCH (08:40)
[2022-12-29] MEDS: THIAMINE HCL 100 MG TAB PO SCH (08:40)
[2022-12-29] MEDS: SUCRALFATE 1 GM TAB PO SCH (08:40)
[2022-12-29] MEDS ORDERED: APIXABAN 5 MG TABLET PO SCH (09:00)
[2022-12-29] MEDS ORDERED: OPTIRAY 320 500ml IV ONE (11:09)
--- NOTE | 2022-12-29 11:31 | CT Scan Report ---
CT ANGIOGRAPHY OF THE CHEST, PULMONARY EMBOLUS PROTOCOL CLINICAL HISTORY: PE, follow up recommended by Radiology COMPARISON STUDY: Chest CTs November 02, 2021 and December 25, 2022. TECHNIQUE: Following IV administration of Optiray, helical axial images of the chest were obtained ut ilizing the pulmonary embolus protocol. Maximal intensity projections and sagittal and coronal refor mats were viewed on an independent 3D workstation. IV contrast was administered without complication . Automated exposure control was utilized for the study. A dose lowering technique was utilized adh ering to the principles of ALARA. CT DOSE: 776.94 mGy.cm FINDINGS: There is a small subsegmental embolus within the anterobasal segment of the left lower lob e on axial image 96 of 223. This is new since CT of December 25, 2022. No additional pulmonary emboli are identified. The possible left upper lobe embolus on prior exam was artifactual. There is no peric ardial effusion. No enlarged thoracic lymph nodes are present. There are [id number] bilateral pleural effusions, right larger than left. Subpleural opacities favor atelectasis. There is mild inte rlobular septal thickening and groundglass opacities within the lungs. A left renal cyst is partially imaged. IMPRESSION: 1. Small acute subsegmental pulmonary embolus within the left lower lobe. This is new since chest CT of December 25, 2022. 2. Interval development of small to moderate bilateral pleural effusions, right larger than left. Stephany dence for mild pulmonary edema. ACT 112: Negative or not required by law. Electronically signed by: Carlos Noble M.D. 12/29/2022 11:29 AM
[2022-12-29] MEDS ORDERED: FUROSEMIDE 40 MG/4 ML VIAL IV ONE (13:54)
--- NOTE | 2022-12-29 14:00 | Hospitalist Progress Note ---
Date of Service December 29, 2022 Assessment & Plan (1) Rapid atrial fibrillation: Plan: 67-year-old male with past medical Hx significant for hyperlipidemia, GERD, BPH who presented with chest pain ,dizziness and generalized malaise. Was found to be in rapid A-fib in the ER and was hypotensive. Atrial fibrillation with rapid ventricular response with hypotension On amiodarone drip with conversion to normal sinus rhythm on admission. Currently on metoprolol tartrate 25mg BID. Further management per cardiology. Echo unremarkable. Elevated troponin is probably demand ischemia related to A-fib with RVR. Had nuclear stress test, awaiting read. PE Noted on repeat CT 12/29 No increased oxygen need at this time, was having YOUNG yesterday but not today On Eliquis 5mg BID Pleural effusions New noted on CT 12/29/22 No increased oxygen need at this time, was having YOUNG yesterday but not today IV Lasix 40mg, pulm consult (likely no need for thoracentesis?), appreciate cardiology recs as well Hypotension Previously required pressor support in the ICU now off of levophed and resolved, downgraded. Alcohol abuse currently not in withdrawal. Alcohol elevated at 104. Urine tox screen negative. AWSS protocol with gabapentin Possible PE versus artifact on CT elevated D-dimer ultrasound lower extremity negative for DVT was on IV heparin. Might need repeat CT PE for confirmation. Diarrhea GI bio fire and C. difficile negative. Continue supportive management. Improved with Imodium. Leukocytosis ?Reactive. Improving Hypokalemia resolved Hypocalcemia, hypophosphatemia repleted as needed DVT prophylaxis-on eliquis per Cardiology Disposition-pending cardiology recs after pacemaker placement. (2) Electrolyte abnormality: (3) Abnormal chest CT: (4) Atrial fibrillation with rapid ventricular response: Admission and Anticipated Discharge Date Admission Date: December 25, 2022 Results & Data Results & Data Vital Signs (Past 12 Hours) Vital Signs Temp Pulse Pulse Resp BP Pulse Ox O2 Del Method 12/29/22 11:59 36.8 C 62 18 157/83 H 97 Room Air 12/29/22 08:00 56 L 12/29/22 08:09 36.6 C 61 18 165/89 H 91 Room Air 12/29/22 03:00 36.7 C 62 16 158/90 H 92 Room Air
--- NOTE | 2022-12-29 14:41 | Pulmonary Consultation ---
Date of Consultation December 29, 2022 Assessment & Plan (1) Pleural effusion due to CHF (congestive heart failure): (2) Pulmonary edema cardiac cause: (3) Insomnia: (4) Pulmonary embolism: Plan Patient's clinical history and imaging is consistent with acute pulmonary edema secondary to atrial fibrillation. Chest CTA completed today revealed small bilateral effusions and mild interlobular septal thickening with groundglass opacities consistent with pulmonary edema. He was briefly on amiodarone earlier this hospitalization, but not has not been on this continuously. Amiodarone induced lung injury is lower on the differential. The patient is completely asymptomatic and saturating well on room air. There is no role for thoracentesis at this time. I recommend a repeat chest x-ray in 2 to 3 days which can be done on an outpatient basis through his family doctor. I would certainly be happy to see the patient in the clinic if he has persistent findings on chest imaging. With respect to the small subsegmental pulmonary embolism within the left lower lobe, I would recommend anticoagulation for 3 to 6 months. Consider repeating a D-dimer to ensure downtrend in 3 months time. It is difficult to determine whether the PE was provoked by his acute illness versus the atrial fibrillation being provoked by the pulmonary embolism. The quantity of the PE is quite small and thus unlikely to cause the degree of symptom burden and atrial fibrillation that he had on presentation. We also discussed his insomnia. He has poor sleep hygiene and has a TV in his room. He also watches television right before sleep. He notes that he uses alcohol to help with his sleep. We discussed that alcohol can lead to atrial fibrillation, insomnia, cirrhosis among other issues. He is considering cutting back on his alcohol intake. I recommended improving his sleep hygiene and avoiding electronic devices 2 hours prior to sleep. I also recommended 3 mg of melatonin prior to sleep as a trial. I discussed the case with the patient's hospitalist and I feel that he is safe to be discharged home today. Case was also discussed with the patient's bedside nurse. Patient would also like to be discharged. No further recommendations at this time. Thank you for allowing me to participate in the care of this patient. Please call with questions. History of Present Illness Reason for Consultation: Bilateral pleural effusion seen on chest CTA Attending Physician: Daisy Barrera MD History of Present Illness 67-year-old male with a past medical history of alcohol abuse, GERD, hyperlipidemia and BPH who presented to the hospital 12/25/2022 due to chest hea viness and shortness of breath. He was found to be hypotensive on admission and admitted to the ICU. He was placed on IV norepinephrine and there was concern of a potential allergic reaction. He received IV hydrocortisone and diphenhydramine. Patient was also found to have a metabolic acidosis with a bicarbonate of 11 and the pH is 7.15. He was found to be in atrial fibrillation with rapid ventricular response which converted to sinus rhythm with IV amiodarone. He is followed by cardiology as an inpatient. He had a CTA of his abdomen and pelvis on admission which revealed potential artifactual pulmonary embolism within a branch of the left upper lobe pulmonary artery. Radiology recommended a follow-up CTA which revealed a small acute subsegmental PE in the left lower lobe region. Additionally, the subsequent CTA revealed interlobular septal thickening and small bilateral effusions. Patient seen and examined at bedside. His is also present. He denies any shortness of breath. He received 40 mg of IV Lasix approximately 1 hour prior to my evaluation. He is dumped about 1 L of urine since Lasix. He denies any chest tightness at present. He is saturating in the mid to high 90s on room air. He denies any previous pulmonary issues. No strong family history of lung disease. He is a lifelong non-smoker. 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 Allergies Allergy/AdvReac Type Severity Reaction Status Date / Time No Known Allergies Allergy Verified 08/22/19 14:45 Home Medications Medication Instructions Recorded Confirmed Type atorvastatin 20 mg tablet (Lipitor) 20 mg PO DAILY 08/22/19 08/22/19 History pantoprazole 40 mg tablet,delayed 40 mg PO DAILY 08/22/19 08/22/19 History release (Protonix) sucralfate 1 gram tablet (Carafate) 1 gm PO BID 08/22/19 08/22/19 History Patient History Medical History (Updated 12/29/22 @ 15:43 by Ez Lindsay MD) Alcohol intoxication BPH with obstruction/lower urinary tract symptoms Chronic shoulder pain GERD (gastroesophageal reflux disease) HLD (hyperlipidemia) Insomnia No significant past medical history Pleural effusion due to CHF (congestive heart failure) Pulmonary edema cardiac cause Pulmonary embolism Surgical History H/O hernia repair Family History Brother Heart disease Mother Breast cancer Leukemia Social History Smoking Status: Former smoker Tobacco Type: Smokeless Tobacco (Dip or Chew) Second Hand Exposure: No; Do You Dip or Chew Tobacco: No; Tobacco Cessation Education Requested by Patient: No Hx Alcohol Use: Yes Alcohol type: beer Hx Substance Use: No Preferred Language: Bel[place]ian Communication Ability: Effective Hematology Specialist Required: No Beliefs That Will Affect Care: None marital status: Current Living Situation: Spouse Other Information That Helps Us Care for You: No Feels Safe at Home: Yes Safety Concerns: Feels Safe At This Time Assistive Devices: Glasses Review of Systems Review of Systems: All systems reviewed & are unremarkable except as noted in HPI & below Physical Exam Physical Exam: Constitutional: Patient appears to be of their stated age. Patient is in no apparent distress. Patient is well-developed. Eyes: Pupils are equal round and reactive to light. Conjunctivae are normal. Anicteric sclera. Ears nose, mouth and throat: Mallampati class 2. Normal posterior oropharynx. Uvula is midline. Neck: Trachea is midline. Visual inspection is normal. Respiratory: Clear to auscultation bilaterally. No use of accessory muscles. No significant clubbing noted. Cardiovascular: Regular rate and rhythm. No murmurs. No edema. Gastrointestinal: Normal bowel sounds, soft, nontender and nondistended. No hepatosplenomegaly noted. Musculoskeletal: No cyanosis. Patient is able to move all extremities. Strength is 5 out of 5 in the upper and lower extremities. Skin: No rashes, warm dry and intact. Neurologic: No obvious focal neurological deficits seen. Psychiatric: Alert and oriented x3 with a euthymic affect. Results & Data Results & Data Vital Signs (Past 12 Hours) Vital Signs Temp Pulse Pulse Resp BP Pulse Ox O2 Del Method 12/29/22 11:59 36.8 C 62 18 157/83 H 97 Room Air 12/29/22 08:00 56 L 12/29/22 08:09 36.6 C 61 18 165/89 H 91 Room Air 12/29/22 03:00 36.7 C 62 16 158/90 H 92 Room Air PG Care Time/CCT Total # of Minutes Spent Total Time Spent with Patient: Total time spent is greater than 50% in coordination of care (as documented) at patient's floor/unit and/or counseling patient: Coding Level of Care Code 24350 INT INP/OBS CARE 3/75MIN Diagnoses Pleural effusion due to CHF (congestive heart failure) I50.9 Pulmonary edema cardiac cause I50.1 Insomnia G47.00 Pulmonary embolism I26.99
[2022-12-29] MEDS ORDERED: GABAPENTIN 600 MG TAB PO SCH (16:00)
[2022-12-31] MEDS ORDERED: GABAPENTIN 600 MG TAB PO SCH (05:00)
== END 2022-12-29 18:16 | disposition home or self-care (01) | DRG 308 ==
LOC: ED 17:44 → 1E 21:25 → SUATTDRO 21:25 → 1E 22:25 → 2S 12-28 11:20